=== PATIENT | male | born 1980 | race Hispanic/Latino ===

== ENCOUNTER 2016-12-30 11:51 | Emergency (ER) | payer BC, OTHER, SELFPAY ==
[2016-12-30 12:14] LABS: Bilirubin Negative (Negative); Blood, Urine Negative (Negative); Glucose, Urine (Dipstick) >=1000 mg/dL (Negative); Ketone, Urine Negative (Negative); Nitrite Negative (Negative); Protein, Urine (Dipstick) Negative (Neg-Trace)
[2016-12-30 12:25] LABS: #Basophils 0.1 thou/uL (0.0-0.2); #Eosinphils 0.1 thou/uL (0.0-0.7); #Lymphocytes 1.9 thou/uL (1.20-3.40); #Monocytes 0.4 thou/uL (0.11-0.59); #Neutrophils 3.9 thou/uL (1.40-6.50); %Basophils 1.1 % (0.0-1.0); %Eosinophils 1.1 % (0.0-10.0); %Lymphocytes 30.2 % (21.0-51.0); %Monocytes 6.5 % (0.0-10.0); Hematocrit 50.9 % (42.0-52.0); Mean Platelet Volume 6.9 fL (7.4-10.4); White Blood Cell (WBC) Count 6.4 thou/uL (4.8-10.8)
[2016-12-30 12:36] LABS: Anion Gap 11 mmol/L (-14-95); T. Carbon Dioxide 26.4 mmol/L (1.0-85.0); pH (Venous) 7.423 (7.35-7.45); vO2 Saturation-calc 96.5 % (0.0-100.0)
[2016-12-30 12:51] LABS: ALT (SGPT) 16 U/L (8-55); AST (SGOT) 16 U/L (5-34); Alkaline Phosphatase 112 U/L (40-150); Anion Gap 15 mmol/L (10-20); BUN (Urea Nitrogen) 12 mg/dL (8.9-20.6); Bilirubin, Total 0.7 mg/dL (0.2-1.2); Calc. Creatinine Clearance 0 mL/min (70-130); Calcium 10.3 mg/dL (7.8-10.44); Carbon Dioxide 25 mmol/L (22-29); Chloride 93 mmol/L (98-107); Estimated GFR-MDRD 87; Globulin 3.5 g/dL (2.4-3.5); Phosphorus 4.2 mg/dL (2.3-4.7); Protein, Total 7.9 g/dL (6.0-8.3)
[2016-12-30] MEDS ORDERED: Insulin NPH/Reg Insulin Hm 300 UNITS/3 ML VIAL SC SCH (15:30)
== END 2016-12-30 17:17 | disposition home or self-care (01) ==
LOC: ERS 11:51
DX: E11.65 Type 2 diabetes mellitus with hyperglycemia (principal); E86.0 Dehydration; I10 Essential (primary) hypertension; F32.9 Major depressive disorder, single episode, unspecified; F41.9 Anxiety disorder, unspecified; F17.210 Nicotine dependence, cigarettes, uncomplicated; Z79.4 Long term (current) use of insulin
CPT/HCPCS: 36416; 80053; 81003; 82010; 82330; 82803; 84100; 85025; 96360; 96361; 96372

== ENCOUNTER 2018-05-22 22:18 | Inpatient (IN) | payer SELFPAY ==
[2018-05-22] MEDS ORDERED: Lorazepam 2 MG/ML VIAL ONE (22:39)
--- NOTE | 2018-05-22 22:52 | RAD ---
FExam: Portable chest Provided clinical history: Vomiting FINDINGS: Comparison 08/21/2016. Cardiac and mediastinal silhouette is within normal limits. No focal consolidati on, pleural fluid or pneumothorax evident. IMPRESSION: No evidence for an acute cardiopulmonary process.
[2018-05-22 22:57] LABS: #Basophils 0.1 thou/uL (0.0-0.2); #Eosinphils 0.1 thou/uL (0.0-0.7); #Lymphocytes 2.3 thou/uL (1.20-3.40); #Monocytes 0.7 thou/uL (0.11-0.59); #Neutrophils 7.8 thou/uL (1.40-6.50); %Eosinophils 0.9 % (0.0-10.0); %Lymphocytes 21.2 % (21.0-51.0); %Monocytes 6.2 % (0.0-10.0); %Neutrophils 70.7 % (42.0-75.0); Hemoglobin 19.9 g/dL (14.0-18.0); Mean Corpuscular HGB CONC 34.5 g/dL (32.0-36.0); Mean Corpuscular Hemoglobin 30.1 pg (27.0-31.0); Mean Corpuscular Volume 87.1 fL (78.0-98.0); Platelet Count 313 thou/uL (130-400); RBC Distribution Width 12.4 % (11.5-14.5); Red Blood Cell (RBC) Count 6.62 mill/uL (4.70-6.10)
[2018-05-22] MEDS ORDERED: Ondansetron PF 4 MG/2 ML Vial ONE (22:58)
[2018-05-22 23:27] LABS: Base Excess-Venous -18.3 mmol/L (-2.0 to 3.0); Bicarbonate (HCO3v) 8.4 mmol/L (22.0-28.0); CO2 Tension (PvCO2) 24.1 mmHg (40.0-50.0); Calcium, Ionized 1.15 mmol/L (See Comments:); Chloride 108 mmol/L (98-107); Hemoglobin - Calc 20.5 g/dL (14.0-18.0); O2 Tension (PvO2) 56.3 mmHg (35.0-45.0); Potassium 5.4 mmol/L (3.5-5.1); Sodium 128 mmol/L (138-145); T. Carbon Dioxide 9.1 mmol/L (22.0-28.0); pH (Venous) 7.151 (7.320-7.430); vO2 Saturation-calc 80.6 % (60.0-85.0)
[2018-05-22 23:29] LABS: ALT (SGPT) 14 U/L (8-55); AST (SGOT) 10 U/L (5-34); Alkaline Phosphatase 83 U/L (40-150); BUN (Urea Nitrogen) 19 mg/dL (8.9-20.6); Bilirubin, Total 1.2 mg/dL (0.2-1.2); CK (CPK) 45 U/L (30-200); Calc. Creatinine Clearance 0 mL/min (70-130); Calcium 9.5 mg/dL (7.8-10.44); Chloride 101 mmol/L (98-107); Estimated GFR-MDRD 60; Globulin 3.8 g/dL (2.4-3.5); Glucose 340 mg/dL (70-105); Lipase 117 U/L (8-78); Potassium 4.4 mmol/L (3.5-5.1); Protein, Total 8.8 g/dL (6.0-8.3); Sodium 128 mmol/L (136-145)
[2018-05-22 23:30] LABS: Acetaminophen Less than 6.0 mcg/mL (10.0-30.0); Alcohol Less than 10 mg/dL (Less than 10); Salicylate Less than 8.0 mg/dL (15.0-30.0)
[2018-05-22 23:33] LABS: Carbon Dioxide Less than 8 mmol/L (22-29)
[2018-05-22] MEDS ORDERED: Insulin Regular 100 units/100 ml in NS IVPB SCH (23:45)
[2018-05-23 00:44] LABS: Bilirubin Small (Negative); Blood, Urine Negative (Negative); Clarity CLEAR (Clear); Glucose, Urine (Dipstick) >=1000 mg/dL (Negative); Leukocyte Negative (Negative); Nitrite Negative (Negative); Protein, Urine (Dipstick) 100 mg/dL (Neg-Trace); Specific Gravity, Urine 1.033 (1.002-1.036); Urobilinogen 0.2 mg/dL (0.2-1.0); pH, Urine 5.5 (5.0-9.0)
[2018-05-23 00:45] LABS: Bacteria/HPF None Seen HPF (None Seen); RBC/HPF 0-3 HPF (0-3); Squamous Epithelial 0-3 HPF (0-3); WBC/HPF 0-3 HPF (0-3)
[2018-05-23 00:46] LABS: Pathc Cast-AUWi Flag 2.71 (0-2.49)
[2018-05-23 00:53] LABS: Other Casts/LPF 0-3 FINELY GRAN LPF (0-3 Hyaline)
[2018-05-23 00:54] LABS: Amphetamine Detected (NotDetected); Barbiturates Screen Not Detected (NotDetected); Benzodiazepine Screen Not Detected (NotDetected); Cocaine Metabolite Screen Not Detected (NotDetected); Medtox Control Line Valid? VALID (VALID); Medtox Reader # READER 4; Methadone Not Detected (NotDetected); Methamphetamine Detected (NotDetected); Opiate Screen Not Detected (NotDetected); Oxycodone Screen Not Detected (NotDetected); Phencyclidine (PCP) Not Detected (NotDetected); THC/Cannabinoid Screen Not Detected (NotDetected); Tricyclic Screen Not Detected (NotDetected)
[2018-05-23] MEDS ORDERED: Ondansetron ODT 4 MG TAB PO PRN (01:05)
[2018-05-23] MEDS ORDERED: HUMULIN R 100 UNITS in Sodium Chloride 0.9% 100 ML IVPB SCH (01:05)
[2018-05-23] MEDS ORDERED: Dextrose 5 %-0.45 % NaCl 1,000 ML IV PRN (01:05)
[2018-05-23] MEDS ORDERED: CCU Electrolyte Replacement 1 EACH IVPB SCH (01:05)
[2018-05-23] MEDS ORDERED: D5 1/2 NS w/20 mEq KCL 1,000 ML IV PRN (01:05)
[2018-05-23] MEDS ORDERED: NS 0.9% w/ 20 MEQ KCL 1,000 ML IV PRN ×2 (01:05)
[2018-05-23] MEDS ORDERED: Ondansetron PF 4 MG/2 ML Vial IVP PRN (01:05)
[2018-05-23] MEDS ORDERED: hydrALAZINE 20 MG/ML VIAL SLOW IVP PRN (01:05)
[2018-05-23] MEDS ORDERED: Sodium Chloride 0.9% 1,000 ML IV PRN ×4 (01:05)
[2018-05-23] MEDS ORDERED: cloNIDine 0.1 MG TAB PO PRN (01:05)
[2018-05-23] MEDS ORDERED: Magnesium Oxide 400 MG TAB PO PRN ×2 (01:09)
[2018-05-23] MEDS ORDERED: Potassium Phosphate 9 MMOL in Sodium Chloride 0.9% 100 ML IVPB PRN (01:09)
[2018-05-23] MEDS ORDERED: Potassium Phosphate 15 MMOL in Sodium Chloride 0.9% 250 ML 250 ML IV PRN (01:09)
[2018-05-23] MEDS ORDERED: CCU ELECTROLYTE REPLACEMENT PROTOCOL FS PRN (01:09)
[2018-05-23] MEDS ORDERED: Magnesium 2 GM/50 ML 2 GM in Premix Bag 1 BAG IVPB PRN (01:09)
[2018-05-23] MEDS ORDERED: Potassium Chloride 20 MEQ TAB PO PRN (01:09)
[2018-05-23] MEDS ORDERED: Potassium Phosphate 12 MMOL in Sodium Chloride 0.9% 250 ML 250 ML IV PRN (01:09)
[2018-05-23] MEDS ORDERED: Potassium Chloride 40 MEQ in Premix Bag 1 BAG IVPB PRN (01:09)
[2018-05-23] MEDS ORDERED: Potassium Chloride 40 MEQ in Sodium Chloride 0.9% 250 ML 250 ML IVPB PRN (01:09)
[2018-05-23] MEDS ORDERED: Morphine 4 MG/ML VIAL SLOW IVP PRN (01:26)
[2018-05-23 01:47] VITALS: BMI 26.4
[2018-05-23 03:03] LABS: Anion Gap 22 mmol/L (10-20); BUN (Urea Nitrogen) 16 mg/dL (8.9-20.6); Calc. Creatinine Clearance 95 mL/min (70-130); Calcium 8.8 mg/dL (7.8-10.44); Chloride 105 mmol/L (98-107); Estimated GFR-MDRD 74; Glucose 264 mg/dL (70-105); Potassium 4.2 mmol/L (3.5-5.1); Sodium 132 mmol/L (136-145)
[2018-05-23 03:05] LABS: Carbon Dioxide 9 mmol/L (22-29)
[2018-05-23 04:54] LABS: Hemoglobin A1c 9.9 % (4.0-6.0)
[2018-05-23 05:51] LABS: Anion Gap 13 mmol/L (10-20); BUN (Urea Nitrogen) 14 mg/dL (8.9-20.6); Calc. Creatinine Clearance 121 mL/min (70-130); Calcium 8.3 mg/dL (7.8-10.44); Carbon Dioxide 11 mmol/L (22-29); Chloride 108 mmol/L (98-107); Estimated GFR-MDRD Greater than 90; Glucose 259 mg/dL (70-105); Potassium 3.4 mmol/L (3.5-5.1); Sodium 129 mmol/L (136-145)
[2018-05-23 06:03] LABS: Band 2 % (5-11); Hemoglobin 16.4 g/dL (14.0-18.0); Lymphocytes 25 % (21-51); MDiff Complete? YES; Mean Corpuscular HGB CONC 34.8 g/dL (32.0-36.0); Mean Corpuscular Hemoglobin 30.6 pg (27.0-31.0); Mean Corpuscular Volume 87.9 fL (78.0-98.0); Mean Platelet Volume 6.7 fL (7.4-10.4); Monocytes 10 % (0-10); Neutrophil 62 % (42-75); Platelet Count 261 thou/uL (130-400); RBC Distribution Width 11.9 % (11.5-14.5); Reactive Lymphocytes 1 % (0-10); Red Blood Cell (RBC) Count 5.34 mill/uL (4.70-6.10); White Blood Cell (WBC) Count 8.9 thou/uL (4.8-10.8)
--- NOTE | 2018-05-23 08:23 | HP ---
PRIMARY CARE PROVIDER: Anthony Orellana. CHIEF COMPLAINT: Vomiting. HISTORY OF PRESENT ILLNESS: This is a 37-year-old male, who presents to [facility] Emergency Department complaining of persistent nausea, vomiting, general weakness over the last 24 to 48 hours. The patient states he is a diabetic and has not taken his insulin over the last 2 weeks. The patient states he was recently released from senior care in March 2018, and has been unable to secure a primary care for followup. The patient admits to increased abdominal pain as well as frequency of urination. The patient denied any documented fever or chills or exposure history. The patient denied taking any home remedies for his nausea and vomiting. The patient's last oral intake was in the last 24 hours. The patient denied any specific change to his weight, however, denies being weighed recently. In the emergency room, the patient underwent general evaluation with screening metabolic survey, consistent with diabetic ketoacidosis presentation. The patient's initial pH noted at 7.1 with a carbon dioxide level less than 8. The patient received aggressive IV fluid hydration per DKA protocol as well as insulin infusion at 6 units/hour. The patient also received IV Zofran and Ativan. Initial workup in the emergency room also revealed urine drug screen positive for methamphetamines. PAST MEDICAL HISTORY: 1. Diabetes mellitus type 1, insulin requiring, poor compliance. 2. Hypertension. 3. Hepatitis C. 4. History of hepatic cirrhosis, status post interferon therapy. 5. Peripheral neuropathy. PAST SURGICAL HISTORY: 1. Status post right hand surgery. 2. Status post liver biopsy. 3. Status post cholecystectomy. 4. Status post hernia repair. 5. Status post granuloma removal. CURRENT MEDICATIONS: 1. Humulin R and N. 2. Aspirin 81 mg p.o. daily. 3. Carbamazepine 200 mg 1 tablet p.o. daily. 4. Duloxetine 60 mg p.o. daily. ALLERGIES: 1. ACETAMINOPHEN. 2. IODINE. 3. SHELLFISH. FAMILY HISTORY: Positive for diabetes mellitus and hypertension. SOCIAL HISTORY: The patient recently incarcerated, release from senior care in March 2018. Polysubstance abuse including marijuana and methamphetamines. Positive alcohol use weekly. Smokes up to a pack of cigarettes daily. REVIEW OF SYSTEMS: CONSTITUTIONAL: Negative for weight loss or gain, ability to conduct usual activities. SKIN: Negative for rash, itching. EYES: Negative for double vision, pain. ENT/MOUTH: Negative for nose bleeding, neck stiffness, pain, tenderness. CARDIOVASCULAR: Negative for palpitations, dyspnea on exertion, orthopnea. RESPIRATORY: Negative for shortness of breath, wheezing, cough, hemoptysis, fever or night sweats. GASTROINTESTINAL: Negative for poor appetite, abdominal pain, heartburn, constipation, or diarrhea. GENITOURINARY: Negative for urgency, frequency, dysuria, nocturia. MUSCULOSKELETAL: Negative for pain, swelling. NEUROLOGIC/PSYCHIATRIC: Negative for anxiety, depression. ALLERGY/IMMUNOLOGIC: Negative for skin rash, bleeding tendency. Otherwise, negative except as stated per HPI. PHYSICAL EXAMINATION: VITAL SIGNS: On admission, blood pressure 129/92, pulse 110, respiratory rate 28, temperature 97.6 degrees Fahrenheit, O2 saturation 99% on room air. GENERAL APPEARANCE: This is a 37-year-old male, ill appearing, responds to questions, in pysi-pm-huporijd distress. HEENT: Pupils are equal, round, reactive to light and accommodation. Extraocular muscles are intact. No scleral icterus. Mild bilateral conjunctival injection. Nares patent. OP is clear. Oral mucosa is dry. NECK: Supple. No cervical adenopathy. No thyromegaly. No carotid bruits. No JVD appreciated. Cervical spine with full active and passive range of motion. No meningeal signs noted. CHEST: Lungs are clear to auscultation bilaterally. CARDIOVASCULAR: S1 and S2 with tachycardia. ABDOMEN: Rounded with mild tenderness to palpation. No palpable mass. No rebound or guarding noted. Bowel sounds are positive in all 4 quadrants. EXTREMITIES: Warm and dry with poor skin turgor. Capillary refill less than 2 seconds. Pulses palpable distally at the dorsalis pedis and posterior tibial arteries bilaterally. NEUROLOGIC: Cranial nerves 2 through 12 are grossly intact. No focal or lateralizing signs appreciated. PERTINENT LABORATORY AND X-RAY FINDINGS: Sodium 128, potassium 4.4, chloride 101, CO2 less than 8, BUN 19, creatinine 1.34, estimated GFR 60, glucose 340, calcium 9.5, lactic acid level 1.2. LFTs within normal limits. Troponin I negative x1. BNP less than 10. Albumin 5.0. TSH 1.51. Lipase 117. CBC showed a white blood cell count of 11, hemoglobin 20, hematocrit 58, platelet count 313, with normal differential. Venous blood gas dated 05/22/2018 showed a pH of 7.16, pCO2 24, PO2 56, bicarb 8.4. Urinalysis positive for protein, glucose, and ketones. Urine drug screen dated 05/23/2018, positive for methamphetamines and amphetamines. Plasma alcohol level less than 10. Influenza A and B antigen dated 05/22/2018, negative. Portable chest x-ray dated 05/22/2018 by my interpretation showed no acute cardiopulmonary process. EKG dated 05/22/2018 by my interpretation shows sinus tachycardia with heart rates in the 110s. Normal R-wave progression noted in the precordial leads. Left axis deviation noted. Baseline artifact noted. ASSESSMENT AND PLAN: 1. Diabetic ketoacidosis. The patient will be admitted to the intermediate care unit. We will continue DKA protocol with aggressive IV fluid hydration. Continue insulin infusion at 6 units/hour, titrating to glycemic response. No current evidence to suggest acute focal infectious process as underlying etiology. Presentation likely due to noncompliance and polysubstance abuse and substance abuse. Check A1c level in the a.m. Repeat beta hydroxybutyrate level in the a.m. 2. Acute kidney injury, secondarily to #1 with dehydration. We will continue volume replacement as outlined previously. Avoid nephrotoxic agents and limit contrast exposure. Repeat creatinine in the a.m. 3. Nausea and vomiting, secondarily to #1. We will continue Zofran 4 mg IV q.6 hours. Clear liquids as tolerated. Suspect clinical improvement with resolution of #1. 4. Methamphetamine abuse. We will offer resources for cessation. Consult Case Management for any further recommendations. Consider [facility] evaluation. 5. Diabetes mellitus type 1. Resume insulin regimen after confirmation from home dose. Check A1c level in the a.m. Medical noncompliance. 6. Prophylaxis. SCDs while in bed. Pepcid 20 mg IV q.12 hours. 7. Code status, full. Surrogate medical decision maker is patient's spouse. Job ID: [id number]
[2018-05-23] MEDS ORDERED: CARBAMAZEPINE 200 MG PO SCH (09:00)
[2018-05-23] MEDS ORDERED: carBAMazepine 200 MG TAB PO SCH (09:00)
[2018-05-23] MEDS ORDERED: DULoxetine 60 MG CAP PO SCH (09:00)
[2018-05-23] MEDS ORDERED: Aspirin 81 mg Enteric Coated Tablet PO SCH (09:00)
[2018-05-23] MEDS: Famotidine/PF 20 mg/2ml Vial SLOW IVP SCH ×2 (09:10→20:24)
[2018-05-23] MEDS: Gabapentin 300 MG CAP PO SCH ×2 (09:10→20:25)
[2018-05-23 09:17] LABS: Anion Gap 11 mmol/L (10-20); BUN (Urea Nitrogen) 14 mg/dL (8.9-20.6); Calc. Creatinine Clearance 121 mL/min (70-130); Calcium 8.5 mg/dL (7.8-10.44); Carbon Dioxide 15 mmol/L (22-29); Chloride 109 mmol/L (98-107); Estimated GFR-MDRD Greater than 90; Glucose 221 mg/dL (70-105); Potassium 3.5 mmol/L (3.5-5.1); Sodium 131 mmol/L (136-145)
[2018-05-23] MEDS ORDERED: NPH, Human Insulin Isophane 300 UNIT/3 ML VIAL SC SCH (15:45)
[2018-05-23] MEDS ORDERED: traMADol HCl 50 MG TAB PO PRN (15:46)
[2018-05-23] MEDS ORDERED: Dextrose 50% Abboject 50 ML SYRINGE IVP PRN (15:55)
[2018-05-23] MEDS ORDERED: Dextrose 5% in Water 1,000 ML IV PRN (15:55)
[2018-05-23] MEDS: traMADol HCl 50 MG TAB PO PRN ×2 (16:21→22:27)
[2018-05-23] MEDS: HumaLOG 300 UNITS/3 ML VIAL SC PRN ×2 (20:25→22:32)
[2018-05-24 05:13] LABS: Anion Gap 10 mmol/L (10-20); BUN (Urea Nitrogen) 8 mg/dL (8.9-20.6); Calc. Creatinine Clearance 175 mL/min (70-130); Calcium 8.3 mg/dL (7.8-10.44); Carbon Dioxide 22 mmol/L (22-29); Chloride 105 mmol/L (98-107); Estimated GFR-MDRD Greater than 90; Glucose 229 mg/dL (70-105); Potassium 3.2 mmol/L (3.5-5.1); Sodium 134 mmol/L (136-145)
[2018-05-24] MEDS: HumaLOG 300 UNITS/3 ML VIAL SC PRN ×4 (05:58→20:29)
[2018-05-24] MEDS: traMADol HCl 50 MG TAB PO PRN ×2 (09:13→20:28)
[2018-05-24] MEDS: Gabapentin 300 MG CAP PO SCH ×2 (09:13→20:25)
[2018-05-24] MEDS: Famotidine/PF 20 mg/2ml Vial SLOW IVP SCH (09:13)
--- NOTE | 2018-05-24 16:53 | PDOC.PN ---
- Subjective Encounter Start Date: 05/24/18 Encounter Start Time: 16:20 Follow up DKA. Off insulin drip. Hungry. Asking for multiple meals. c/o blurry vision, feels tired, feels worn out. At home previously 70/30 35 units morning and 30units evening. - Objective Resuscitation Status - Order Detail: 05/23/18 00:56 Resuscitation Status Routine Resuscitation Status: FULL: Full Resuscitation Vital Signs & Weight: Vital Signs (12 hours) Temp Pulse Ox 05/24/18 07:35 98 05/24/18 07:00 98.3 F Weight Weight 163 lb 6.4 oz Most Recent Monitor Data Heart Rate from ECG 71 NIBP 117/75 NIBP BP-Mean 89 Respiration from ECG 14 SpO2 99 I&O: 05/23/18 05/24/18 05/25/18 06:59 06:59 06:59 Intake Total 1795 6766 Output Total 951 Balance 1795 5815 Result Diagrams: 05/23/18 04:05 05/24/18 04:08 Additional Labs: Accuchecks 05/24/18 05/24/18 05/24/18 16:29 11:47 05:59 POC Glucose 249 H 289 H 231 H 05/23/18 05/23/18 22:31 20:13 POC Glucose 393 H 440 H Phys Exam - Physical Examination Constitutional: NAD HEENT: PERRLA Neck: supple, full ROM Respiratory: clear to auscultation bilateral Cardiovascular: RRR Gastrointestinal: soft, non-tender Musculoskeletal: no edema Neurological: non-focal, moves all 4 limbs Psychiatric: A&O x 3 Skin: no rash, normal turgor Dx/Plan (1) Hypokalemia with shifts of fluid from extracellular to intracellular space Code(s): E87.6 - HYPOKALEMIA Status: Acute Comment: Replete, check AM BMP and Mg (2) Polysubstance abuse Code(s): F19.10 - OTHER PSYCHOACTIVE SUBSTANCE ABUSE, UNCOMPLICATED Status: Chronic (3) Uncontrolled type 2 diabetes mellitus with peripheral neuropathy Code(s): E11.42 - TYPE 2 DIABETES MELLITUS WITH DIABETIC POLYNEUROPATHY; E11.65 - TYPE 2 DIABETES MELLITUS WITH HYPERGLYCEMIA Status: Chronic Comment: Start Humulin 70/30 35 u subqu bid (4) DKA (diabetic ketoacidosis) Code(s): E13.10 - OTH DIABETES MELLITUS WITH KETOACIDOSIS WITHOUT COMA Status : Resolved - Plan cont current plan of care, out of bed/ambulate * * Replete electrolytes. Discussed with him visual disturbance likely consequence polysubstance abuse and fluctuating blood sugar. Neuro exam is reassuring. * Transfer to medical. * Likely home 4/4: morning lab ordered. Paper prescriptions completed for insulin (Novolog SS, Novolin 70/30) and given to community mental health social worker to send to agency consulted for med assistance.
[2018-05-24] MEDS ORDERED: Potassium Chloride 20 MEQ TAB PO SCH (17:15)
[2018-05-25] MEDS: HumaLOG 300 UNITS/3 ML VIAL SC PRN (05:35)
[2018-05-25 07:22] LABS: Albumin 3.7 g/dL (3.5-5.0); Anion Gap 13 mmol/L (10-20); BUN (Urea Nitrogen) 9 mg/dL (8.9-20.6); BUN/Creatinine Ratio 13.85; Calc. Creatinine Clearance 162 mL/min (70-130); Calcium 8.9 mg/dL (7.8-10.44); Carbon Dioxide 24 mmol/L (22-29); Chloride 100 mmol/L (98-107); Estimated GFR-MDRD Greater than 90; Glucose 328 mg/dL (70-105); Magnesium 1.9 mg/dL (1.6-2.6); Phosphorus 2.6 mg/dL (2.3-4.7); Potassium 3.2 mmol/L (3.5-5.1); Sodium 134 mmol/L (136-145)
[2018-05-25] MEDS ORDERED: NPH, Human Insulin Isophane 300 UNIT/3 ML VIAL SC SCH (07:30)
[2018-05-25] MEDS: traMADol HCl 50 MG TAB PO PRN (08:04)
[2018-05-25] MEDS: Gabapentin 300 MG CAP PO SCH (08:06)
[2018-05-25] MEDS ORDERED: Potassium Chloride 20 MEQ TAB PO SCH ×2 (08:30→17:00)
[2018-05-25 08:35] VITALS: BP 126/73; TEMP 98.2
--- NOTE | 2018-05-26 08:31 | DIS ---
DATE OF ADMISSION: 05/22/2018 DATE OF DISCHARGE: 05/25/2018 DISCHARGE DISPOSITION: Home. FOLLOWUP: Follow up with primary care physician at [facility] in 1 week. DISCHARGE MEDICATIONS: 1. Novolin 70/30, 30 units at night and 35 units in the morning. 2. Humalog sliding scale. 3. Neurontin 300 mg three times daily. 4. Tramadol as needed. INPATIENT CONSULTANTS: None. BRIEF HOSPITAL COURSE: The patient is a 37-year-old male with diabetes mellitus type 1, not compliant with insulin, presented to the hospital on May 22, 2018, with nausea and vomiting. Please refer to the history and physical by Dr. Von Wheat for further details. The patient was admitted to the hospital with a diagnosis of diabetic ketoacidosis. His venous ABG showed pH of 7.15 with pCO2 of 24, pO2 of 56.3 with bicarbonate of 8.3. He was monitored in the intermediate care unit, on insulin drip. He also had several electrolyte abnormalities, which were gradually replaced. Later on, he was transferred to the medical floor. He was advised to be compliant with his insulin. FINAL DIAGNOSES: 1. Diabetic ketoacidosis secondary to noncompliance. 2. History of diabetes mellitus, type 1. 3. Acute kidney injury, resolved. 4. Hyponatremia. 5. Hypokalemia. 6. Anion gap metabolic acidosis secondary to diabetic ketoacidosis. Ketones on admission was 7.7, repeat was 1.75. 7. Neuropathy, suspected to be secondary to diabetes mellitus. The patient will benefit from Neurology evaluation as an outpatient. 8. Hyperkalemia on admission, resolved. PLAN: Plan of care was discussed with the patient in detail. He stated understanding. Job ID: [id number]
== END 2018-05-25 14:52 | disposition home or self-care (01) | DRG 638 ==
LOC: ERS 22:18 → IMCU/EMU 23:36 → T4-B 05-24 19:09
PROVIDERS: ADMIT Family Medicine; ATTEND Family Medicine
DX: E10.10 Type 1 diabetes mellitus with ketoacidosis without coma (principal); N17.9 Acute kidney failure, unspecified; E86.0 Dehydration; F15.10 Other stimulant abuse, uncomplicated; I10 Essential (primary) hypertension; E10.42 Type 1 diabetes mellitus with diabetic polyneuropathy; F32.9 Major depressive disorder, single episode, unspecified; F41.9 Anxiety disorder, unspecified; E87.6 Hypokalemia; F19.10 Other psychoactive substance abuse, uncomplicated; F17.210 Nicotine dependence, cigarettes, uncomplicated; Z91.14 Patient's other noncompliance with medication regimen; Z90.49 Acquired absence of other specified parts of digestive tract; Z98.890 Other specified postprocedural states; Z79.4 Long term (current) use of insulin; Z79.82 Long term (current) use of aspirin; Z91.041 Radiographic dye allergy status; Z88.8 Allergy status to other drugs, medicaments and biological substances; Z91.013 Allergy to seafood
CPT/HCPCS: 36415; 36416; 71045; 80048; 80053; 80069; 80306; 80307; 81003; 81015; 82010; 82140; 82330; 82550; 82803; 83036; 83605; 83690; 83735; 83880; 84443; 84484; 85007; 85025; 85027; 87040; 87086; 87804; 93005; 96361; 96365; 96375; J1815; J2060; J2405; J7050; S0028

== ENCOUNTER 2018-07-13 17:00 | Emergency (ER) | payer SELFPAY ==
[2018-07-13 17:32] LABS: #Eosinphils 0.1 thou/uL (0.0-0.7); #Lymphocytes 1.3 thou/uL (1.20-3.40); #Monocytes 0.6 thou/uL (0.11-0.59); %Eosinophils 1.2 % (0.0-10.0); %Lymphocytes 26.3 % (21.0-51.0); %Monocytes 11.1 % (0.0-10.0); %Neutrophils 60.5 % (42.0-75.0); Hemoglobin 16.1 g/dL (14.0-18.0); Mean Corpuscular Hemoglobin 31.8 pg (27.0-31.0); Mean Corpuscular Volume 88.4 fL (78.0-98.0); Mean Platelet Volume 6.6 fL (7.4-10.4); Platelet Count 222 thou/uL (130-400); RBC Distribution Width 12.4 % (11.5-14.5); Red Blood Cell (RBC) Count 5.06 mill/uL (4.70-6.10)
[2018-07-13 17:55] LABS: ALT (SGPT) 14 U/L (8-55); AST (SGOT) 11 U/L (5-34); Albumin 4.1 g/dL (3.5-5.0); Alkaline Phosphatase 107 U/L (40-150); Anion Gap 13 mmol/L (10-20); BUN (Urea Nitrogen) 9 mg/dL (8.9-20.6); Bilirubin, Total 1.1 mg/dL (0.2-1.2); Calc. Creatinine Clearance 0 mL/min (70-130); Calcium 9.6 mg/dL (7.8-10.44); Carbon Dioxide 27 mmol/L (22-29); Chloride 94 mmol/L (98-107); Estimated GFR-MDRD 82; Globulin 2.8 g/dL (2.4-3.5); Potassium 3.8 mmol/L (3.5-5.1); Protein, Total 6.9 g/dL (6.0-8.3); Sodium 130 mmol/L (136-145)
[2018-07-13 17:57] LABS: Glucose 655 mg/dL (70-105)
--- NOTE | 2018-07-13 18:34 | ULT ---
Testicular pain. Multiple longitudinal and transverse images of the scrotum was obtained using multi hertz linear arra y transducer. Real-time, color flow and spectral waveform Doppler analysis demonstrates the right testicle to measure 3.0 x 3.5 x 2.2 cm while the left measures 2.8 x 4.0 x 1.9 cm. No definite eviden ce of testicular parenchymal masses seen. Good blood flow seen in both testicles. Right and left epididymides are unremarkable. Some right inguinal prominent vessels seen possibly representing varicoceles. IMPRESSION: No evidence of testicular masses or definite evidence of testicular torsion.
[2018-07-13 19:28] LABS: Bilirubin Negative (Negative); Blood, Urine Negative (Negative); Clarity CLEAR (Clear); Glucose, Urine (Dipstick) >=1000 mg/dL (Negative); Leukocyte Negative (Negative); Nitrite Negative (Negative); Protein, Urine (Dipstick) Negative (Neg-Trace); Specific Gravity, Urine 1.042 (1.002-1.036)
== END 2018-07-13 22:02 | disposition home or self-care (01) ==
LOC: ERS 17:00
DX: E10.65 Type 1 diabetes mellitus with hyperglycemia (principal); B37.42 Candidal balanitis; I10 Essential (primary) hypertension; F41.9 Anxiety disorder, unspecified; F32.9 Major depressive disorder, single episode, unspecified; F17.210 Nicotine dependence, cigarettes, uncomplicated; Z79.82 Long term (current) use of aspirin; Z79.899 Other long term (current) drug therapy
CPT/HCPCS: 36415; 76870; 80053; 81003; 85025; 87086; 93976

== ENCOUNTER 2018-07-17 17:07 | Emergency (ER) | payer SELFPAY ==
[2018-07-17 17:59] LABS: #Eosinphils 0.1 thou/uL (0.0-0.7); #Lymphocytes 1.9 thou/uL (1.20-3.40); #Monocytes 0.6 thou/uL (0.11-0.59); #Neutrophils 4.6 thou/uL (1.40-6.50); %Basophils 0.5 % (0.0-1.0); %Eosinophils 0.9 % (0.0-10.0); %Lymphocytes 26.6 % (21.0-51.0); %Monocytes 8.3 % (0.0-10.0); %Neutrophils 63.8 % (42.0-75.0); Hemoglobin 16.4 g/dL (14.0-18.0); Mean Corpuscular HGB CONC 34.8 g/dL (32.0-36.0); Mean Corpuscular Hemoglobin 30.8 pg (27.0-31.0); Mean Corpuscular Volume 88.4 fL (78.0-98.0); Mean Platelet Volume 6.9 fL (7.4-10.4); Platelet Count 267 thou/uL (130-400); Red Blood Cell (RBC) Count 5.32 mill/uL (4.70-6.10); White Blood Cell (WBC) Count 7.1 thou/uL (4.8-10.8)
[2018-07-17 18:16] LABS: ALT (SGPT) 13 U/L (8-55); AST (SGOT) 11 U/L (5-34); Albumin 4.3 g/dL (3.5-5.0); Alkaline Phosphatase 145 U/L (40-150); Anion Gap 15 mmol/L (10-20); BUN (Urea Nitrogen) 10 mg/dL (8.9-20.6); Bilirubin, Total 1.3 mg/dL (0.2-1.2); Calc. Creatinine Clearance 0 mL/min (70-130); Carbon Dioxide 26 mmol/L (22-29); Chloride 89 mmol/L (98-107); Estimated GFR-MDRD 72; Globulin 3.3 g/dL (2.4-3.5); Potassium 4.1 mmol/L (3.5-5.1); Protein, Total 7.6 g/dL (6.0-8.3); Sodium 126 mmol/L (136-145)
[2018-07-17 18:18] LABS: Glucose 752 mg/dL (70-105)
[2018-07-17] MEDS ORDERED: Lidocaine 1% w/Epinephrine 1:100K 20 ML VIAL ONE (18:22)
[2018-07-17] MEDS ORDERED: Lidocaine 1% PF 5 ML VIAL ONE (18:22)
== END 2018-07-17 19:16 | disposition home or self-care (01) ==
LOC: ERS 17:07
DX: Z48.817 Encounter for surgical aftercare following surgery on the skin and subcutaneous tissue (principal); E10.65 Type 1 diabetes mellitus with hyperglycemia; E10.40 Type 1 diabetes mellitus with diabetic neuropathy, unspecified; F41.9 Anxiety disorder, unspecified; F32.9 Major depressive disorder, single episode, unspecified; F17.210 Nicotine dependence, cigarettes, uncomplicated; I10 Essential (primary) hypertension
CPT/HCPCS: 10060; 36415; 36416; 80053; 82010; 85025; J2001

== ENCOUNTER 2018-07-19 10:29 | Emergency (ER) | payer SELFPAY ==
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
[2018-07-19 11:40] LABS: #Eosinphils 0.1 thou/uL (0.0-0.7); #Lymphocytes 1.3 thou/uL (1.20-3.40); #Monocytes 0.6 thou/uL (0.11-0.59); #Neutrophils 5.5 thou/uL (1.40-6.50); %Basophils 0.6 % (0.0-1.0); %Eosinophils 1.2 % (0.0-10.0); %Lymphocytes 16.9 % (21.0-51.0); %Neutrophils 73.3 % (42.0-75.0); Mean Corpuscular HGB CONC 36.1 g/dL (32.0-36.0); Mean Corpuscular Hemoglobin 31.5 pg (27.0-31.0); Mean Corpuscular Volume 87.2 fL (78.0-98.0); Mean Platelet Volume 7.4 fL (7.4-10.4); Platelet Count 222 thou/uL (130-400); Red Blood Cell (RBC) Count 4.76 mill/uL (4.70-6.10); White Blood Cell (WBC) Count 7.4 thou/uL (4.8-10.8)
[2018-07-19 11:43] LABS: ALT (SGPT) 15 U/L (8-55); AST (SGOT) 14 U/L (5-34); Albumin 4.2 g/dL (3.5-5.0); Alkaline Phosphatase 130 U/L (40-150); Anion Gap 13 mmol/L (10-20); BUN (Urea Nitrogen) 8 mg/dL (8.9-20.6); Calc. Creatinine Clearance 0 mL/min (70-130); Calcium 9.9 mg/dL (7.8-10.44); Carbon Dioxide 26 mmol/L (22-29); Chloride 95 mmol/L (98-107); Estimated GFR-MDRD Greater than 90; Globulin 3.1 g/dL (2.4-3.5); Glucose 516 mg/dL (70-105); Potassium 3.9 mmol/L (3.5-5.1); Protein, Total 7.3 g/dL (6.0-8.3); Sodium 130 mmol/L (136-145)
[2018-07-19] MEDS ORDERED: Insulin Regular 300 UNITS/3 ML VIAL ONE (12:04)
[2018-07-19] MEDS ORDERED: Ketorolac Tromethamine 30 MG/ML VIAL ONE (12:04)
== END 2018-07-19 14:18 | disposition home or self-care (01) ==
LOC: ERS 10:29
DX: S00.83XA Contusion of other part of head, initial encounter (principal); S00.212A Abrasion of left eyelid and periocular area, initial encounter; L02.11 Cutaneous abscess of neck; E10.40 Type 1 diabetes mellitus with diabetic neuropathy, unspecified; I10 Essential (primary) hypertension; F41.9 Anxiety disorder, unspecified; F32.9 Major depressive disorder, single episode, unspecified; F17.210 Nicotine dependence, cigarettes, uncomplicated; Z79.899 Other long term (current) drug therapy; V23.4XXA Motorcycle driver injured in collision with car, pick-up truck or van in traffic accident, initial encounter
CPT/HCPCS: 36416; 70450; 71046; 80053; 85025; 93005; 96361; 96374; 96375; J1815; J1885

== ENCOUNTER 2018-09-03 19:54 | Emergency (ER) | payer SELFPAY ==
[2018-09-03 20:21] LABS: Bilirubin Negative (Negative); Blood, Urine Negative (Negative); Clarity Clear (Clear); Glucose, Urine (Dipstick) Greater than 1000 mg/dL (Negative); Leukocyte Negative Leu/uL (Negative); Nitrite Negative (Negative); Protein, Urine (Dipstick) Negative (Neg-Trace); Urobilinogen Normal mg/dL (Less than 2)
[2018-09-03 20:25] LABS: #Lymphocytes 1.1 thou/uL (1.20-3.40); #Monocytes 0.4 thou/uL (0.11-0.59); #Neutrophils 3.9 thou/uL (1.40-6.50); %Basophils 0.8 % (0.0-1.0); %Eosinophils 0.8 % (0.0-10.0); %Lymphocytes 19.6 % (21.0-51.0); %Monocytes 7.4 % (0.0-10.0); %Neutrophils 71.5 % (42.0-75.0); Hemoglobin 14.1 g/dL (14.0-18.0); Mean Corpuscular HGB CONC 33.7 g/dL (32.0-36.0); Mean Corpuscular Hemoglobin 29.7 pg (27.0-31.0); Mean Platelet Volume 6.6 fL (7.4-10.4); Platelet Count 254 thou/uL (130-400); RBC Distribution Width 11.8 % (11.5-14.5); Red Blood Cell (RBC) Count 4.74 mill/uL (4.70-6.10); White Blood Cell (WBC) Count 5.5 thou/uL (4.8-10.8)
[2018-09-03 20:45] LABS: ALT (SGPT) 16 U/L (8-55); AST (SGOT) 14 U/L (5-34); Albumin 3.7 g/dL (3.5-5.0); Alkaline Phosphatase 130 U/L (40-150); Anion Gap 13 mmol/L (10-20); BUN (Urea Nitrogen) 9 mg/dL (8.9-20.6); Bilirubin, Total 0.9 mg/dL (0.2-1.2); Calc. Creatinine Clearance 0 mL/min (70-130); Calcium 9.1 mg/dL (7.8-10.44); Carbon Dioxide 26 mmol/L (22-29); Chloride 90 mmol/L (98-107); Estimated GFR-MDRD 81; Globulin 3.5 g/dL (2.4-3.5); Potassium 3.9 mmol/L (3.5-5.1); Protein, Total 7.2 g/dL (6.0-8.3); Sodium 125 mmol/L (136-145)
[2018-09-03 20:49] LABS: Glucose 778 mg/dL (70-105)
[2018-09-03] MEDS ORDERED: Insulin Regular 300 UNITS/3 ML VIAL ONE (21:06)
[2018-09-03] MEDS ORDERED: Magnesium Citrate 300 ML BOT ONE (23:52)
[2018-09-04 00:33] LABS: ALT (SGPT) 15 U/L (8-55); AST (SGOT) 13 U/L (5-34); Albumin 3.5 g/dL (3.5-5.0); Alkaline Phosphatase 119 U/L (40-150); Anion Gap 11 mmol/L (10-20); BUN (Urea Nitrogen) 7 mg/dL (8.9-20.6); Bilirubin, Total 0.7 mg/dL (0.2-1.2); Calc. Creatinine Clearance 0 mL/min (70-130); Calcium 8.7 mg/dL (7.8-10.44); Carbon Dioxide 26 mmol/L (22-29); Chloride 99 mmol/L (98-107); Estimated GFR-MDRD Greater than 90; Globulin 3.4 g/dL (2.4-3.5); Glucose 344 mg/dL (70-105); Potassium 3.7 mmol/L (3.5-5.1); Protein, Total 6.9 g/dL (6.0-8.3); Sodium 132 mmol/L (136-145)
== END 2018-09-04 00:15 | disposition home or self-care (01) ==
LOC: ERS 19:54
DX: K59.00 Constipation, unspecified (principal); E10.65 Type 1 diabetes mellitus with hyperglycemia; F15.10 Other stimulant abuse, uncomplicated; R07.9 Chest pain, unspecified; E10.40 Type 1 diabetes mellitus with diabetic neuropathy, unspecified; F17.210 Nicotine dependence, cigarettes, uncomplicated; F41.9 Anxiety disorder, unspecified; F32.9 Major depressive disorder, single episode, unspecified; Z79.899 Other long term (current) drug therapy
CPT/HCPCS: 36415; 36416; 80053; 81003; 82010; 85025; 96361; 96374; J1815

== ENCOUNTER 2018-11-02 22:32 | Inpatient (IN) | payer SELFPAY ==
--- NOTE | 2018-11-02 23:34 | RAD ---
RADIOGRAPH CHEST 2 VIEWS: DATE: 11/02/2018 HISTORY: 38-year-old male with chest infection FINDINGS: There is no airspace density, pulmonary edema, pleural effusion, pneumothorax, or cardiomegaly. IMPRESSION: No acute cardiopulmonary findings.
[2018-11-02 23:56] LABS: #Lymphocytes 1.9 thou/uL (1.20-3.40); #Monocytes 0.6 thou/uL (0.11-0.59); #Neutrophils 5.7 thou/uL (1.40-6.50); %Basophils 0.4 % (0.0-1.0); %Eosinophils 0.6 % (0.0-10.0); %Lymphocytes 22.8 % (21.0-51.0); %Monocytes 7.6 % (0.0-10.0); %Neutrophils 68.6 % (42.0-75.0); Hemoglobin 14.2 g/dL (14.0-18.0); Mean Corpuscular HGB CONC 35.2 g/dL (32.0-36.0); Mean Corpuscular Hemoglobin 30.3 pg (27.0-31.0); Mean Corpuscular Volume 86.2 fL (78.0-98.0); Mean Platelet Volume 6.1 fL (7.4-10.4); Platelet Count 289 thou/uL (130-400); RBC Distribution Width 12.2 % (11.5-14.5); Red Blood Cell (RBC) Count 4.69 mill/uL (4.70-6.10); White Blood Cell (WBC) Count 8.3 thou/uL (4.8-10.8)
[2018-11-03 00:14] LABS: ALT (SGPT) 15 U/L (8-55); AST (SGOT) 14 U/L (5-34); Albumin 3.6 g/dL (3.5-5.0); Alkaline Phosphatase 191 U/L (40-150); Anion Gap 11 mmol/L (10-20); BUN (Urea Nitrogen) 10 mg/dL (8.9-20.6); Bilirubin, Total 0.6 mg/dL (0.2-1.2); Calc. Creatinine Clearance 0 mL/min (70-130); Calcium 9.2 mg/dL (7.8-10.44); Carbon Dioxide 26 mmol/L (22-29); Chloride 90 mmol/L (98-107); Estimated GFR-MDRD 77; Globulin 5.2 g/dL (2.4-3.5); Potassium 3.8 mmol/L (3.5-5.1); Protein, Total 8.8 g/dL (6.0-8.3); Sodium 123 mmol/L (136-145)
[2018-11-03 00:22] LABS: Glucose 638 mg/dL (70-105)
[2018-11-03 00:26] LABS: Bilirubin Negative (Negative); Blood, Urine Negative (Negative); Clarity Clear (Clear); Glucose, Urine (Dipstick) Greater than 1000 mg/dL (Negative); Leukocyte Negative Leu/uL (Negative); Nitrite Negative (Negative); Protein, Urine (Dipstick) Negative (Neg-Trace); Urobilinogen Normal mg/dL (Less than 2)
[2018-11-03] MEDS ORDERED: Insulin Regular 300 UNITS/3 ML VIAL ONE ×2 (00:33→00:34)
[2018-11-03 00:35] LABS: Medtox Reader # READER 4
[2018-11-03 00:36] LABS: Amphetamine Detected (NotDetected); Barbiturates Screen Not Detected (NotDetected); Benzodiazepine Screen Not Detected (NotDetected); Cocaine Metabolite Screen Not Detected (NotDetected); Medtox Control Line Valid? VALID (VALID); Methadone Not Detected (NotDetected); Methamphetamine Detected (NotDetected); Opiate Screen Not Detected (NotDetected); Oxycodone Screen Not Detected (NotDetected); Phencyclidine (PCP) Not Detected (NotDetected); THC/Cannabinoid Screen Not Detected (NotDetected); Tricyclic Screen Not Detected (NotDetected)
--- NOTE | 2018-11-03 02:15 | PDOC.FPRHP ---
- History of Present Illness Chief Complaint: abscesses History of Present Illness: 38 yo male with type 1 or 2 diabetes, neuropathy and leg cramps, presents with several abscesses, one is on his neck, one in L armpit, several are on his penis. Two weeks ago on arm, two days on head, and penis lesion for two months. Was told by Bart Ventura he had chlamydia, treated at that time. Currently uses meth, injects using his insulin needles. Reports he was in retirement for 5 months and was released in March. Has tattoos some of which were done in retirement. Reports he hasn't been on insulin for 3 months because he doesn't care anymore and has been on meth; last hgba1c 12.6. Regarding penile lesions, reports he was supposed to have procedure because he cannot retract his foreskin but was not able to schedule it. ED Course: Given 2 L fluids, 10 U insulin IV in the ED. - Allergies/Adverse Reactions Allergies Allergy/AdvReac Type Severity Reaction Status Date / Time codeine Allergy Intermediate Verified 11/03/18 04:35 [From Tylenol-Codeine #3] acetaminophen Allergy Verified 11/03/18 04:35 Iodinated Contrast Media Allergy Verified 11/03/18 04:35 [Iodinated Contrast Media - Oral and] shellfish derived Allergy Verified 11/03/18 04:35 - Home Medications Medication Instructions Recorded Confirmed Type No Known 11/03/18 11/03/18 History - History PMHx: Hepatitis C 2011 s/p treatment, Seizures from diabetes while in retirement?, Type 1 or 2 diabetes, Cirrhosis, Anxiety, Depression, HTN, Hypothyroidism? PSHx: granuloma removal, hernia repair, abscess s/p I&D, cholecystectomy, liver biopsy FHx: grandparents-diabetes, cirrhosis, heart attacks, mom-diabetes, daughter- diabetes Social: meth use/abuse last use 1700 yesterday, used "every drug", marijuana use , hx of drinking - Review of Systems General: reports: night sweats, fatigue. denies: fever/chills, weight/appetite/ sleep changes ENT: denies: nasal congestion, rhinorrhea Respiratory: denies: cough, congestion, shortness of breath Cardiovascular: denies: chest pain, palpitation Gastrointestinal: reports: nausea, vomiting, constipation. denies: diarrhea Genitourinary: reports: polyuria Skin: reports: lesions (multiple lesions) Musculoskeletal: reports: tenderness, other (leg cramps and pain) Psychological: reports: anxiety, depression, other (seeing someone under blankets for years,) - Vital signs BP: 121/83 HR: 99 RR: 18 Tmax: 98.1 Pox: 99% on RA Wt: 57 kg - Physical Exam Constitutional: NAD, awake, alert and oriented HEENT: normocephalic and atraumatic Neck: trachea midline, other (mild thyromegaly, L cervical anterior LAD) Heart: normal S1/S2 (3/6 holosystolic murmur), pulses present, no edema Lungs: CTAB, no respiratory distress, good air movement Abdomen: soft, non-tender, bowel sounds present, no masses/distention Neurological: no focal deficit -Skin: Large 3 cm abscess over posterior neck, 4 cm abscess in left armpit, multiple b/ l arm LAD, Penis abscess and erythematous balinitis, multiple tattoos over body some appearing older than others. Psychiatric: normal mood and affect (pt obviously distressed at his auditory and visual hallucinations, expressed desire to stop using meth, would like to see psychiatrist, he does not express SI. Speech: normal.), intact recent and remote memory FMR H&P: Results - Labs Result Diagrams: 11/03/18 05:00 11/03/18 07:25 Lab results: WBC 8.3 thou/uL (4.8-10.8) 11/02/18 23:47 Hgb 14.2 g/dL (14.0-18.0) 11/02/18 23:47 Hct 40.4 % (42.0-52.0) L 11/02/18 23:47 MCV 86.2 fL (78.0-98.0) 11/02/18 23:47 Plt Count 289 thou/uL (130-400) 11/02/18 23:47 Neutrophils % 68.6 % (42.0-75.0) 11/02/18 23:47 Sodium 123 mmol/L (136-145) L 11/02/18 23:47 Potassium 3.8 mmol/L (3.5-5.1) 11/02/18 23:47 Chloride 90 mmol/L (98-107) L 11/02/18 23:47 Carbon Dioxide 26 mmol/L (22-29) 11/02/18 23:47 BUN 10 mg/dL (8.9-20.6) 11/02/18 23:47 Creatinine 1.07 mg/dL (0.7-1.3) 11/02/18 23:47 Glucose 638 mg/dL (70-105) H* 11/02/18 23:47 Lactic Acid 1.1 mmol/L (0.5-2.2) 11/02/18 23:47 Calcium 9.2 mg/dL (7.8-10.44) 11/02/18 23:47 Total Bilirubin 0.6 mg/dL (0.2-1.2) 11/02/18 23:47 AST 14 U/L (5-34) 11/02/18 23:47 ALT 15 U/L (8-55) 11/02/18 23:47 Alkaline Phosphatase 191 U/L (40-150) H 11/02/18 23:47 Serum Total Protein 8.8 g/dL (6.0-8.3) H 11/02/18 23:47 Albumin 3.6 g/dL (3.5-5.0) 11/02/18 23:47 Urine Ketones Negative mg/dL (Negative) 11/03/18 00:03 Urine Blood Negative (Negative) 11/03/18 00:03 Urine Nitrite Negative (Negative) 11/03/18 00:03 Ur Leukocyte Esterase Negative [place]/uL (Negative) 11/03/18 00:03 FMR H&P: A/P - Plan 38 yo male admitted for: Hyperglycemia: - initial bG of 600 - Weight based insulin ordered: 20 U lantus in AM, 3 U humalog WM - Hypoglycemia protocol and sliding scale ordered - A1C pending - NS at 125 mL/hr - BMP checks q4h x3 to monitor electrolytes and potassium Multiple soft tissue abscesses, penile abscess, balinitis: - Blood cx pending - Sono of abscesses - Vancomycin - denies sharing needles but reuses his own after washing w/ bleach: will pursue infectious workup of HIV, Hep B/C w/ RNA quant - Consider I&D if simple abscess. If tracking, consult surgery. - For penile abscess, STI workup: RPR, Gc/chlamydia - Urology consult for balinitis - Toradol IV for pain New murmur in setting of IV drug use: - Echo - Educate patient on vein care and proper injection technique Methamphetamine usage and possible meth-induced psychosis: - Monitor on telemetry for withdrawal symptoms - consider consult to poison control - [facility] consult when pt medically stable - Consider having a 24-hr sitter. patient not expressing SI but is emotionally distressed. Hx of cirrhosis and Hep C s/p treatment: - CMP - continue to monitor Code: full VTE PPx: not given due to concern for cirrhosis and liver function, hx of hematemesis Disposition/LOS: Admit for Obs to telemetry. FMR H&P: Upper Level - Pertinent history 38 yo male with pmhx of uncontrolled type 1? diabetes, meth use presents with several abscesses. One on his neck, left armpit, and penis, as well as several small ones all over his arms. Also complains of seeing things and hearing things that are not there. Most recent meth use was yesterday around 1700. Without insurance and not taking insulin since this summer. Also complains of trouble with his foreskin. He cannot retract his penis, it is swollen and painful. He was told he had chlamydia in July. - Pertinent findings VSS PE: 3 in diameter abscess with surrouding cellulits in left armpit, ~3-4cm abscess on cervical neck, 1cm absces on penis, multiple suspected abscesses in arms bilaterally. RRR CTAB no w/r/r penis with circumferential swelling of foreskin, and white discharge multiple tattoos dry mucous membranes - Plan Date/Time: 11/03/18 0210 38 yo male with pmhx of type 1 mixed diabetes off medications since July and IVDU (meth) who presents with abscesses, admitted for abscesses 2/2 IVDU ( failed outpatient management) and hyperglycemia. #Multiple abscesses -2/2 meth IVDU -Mostly hard, indurated -Ordered blood cultures -Started vanc -Ordered US of skin/soft tissue to assess for areas that could be drained and to see how far/deep the abscesses track, if tracking into muscle, I would consult surgery #Hyperglycemia -does not meet criteria for DKA vs HHS -will monitor with q2h accuchecks, serial BMPs, monitor potassium -fluid resuscitation -hba1c ordered -Lantus 20U qam started, 3U Humalog AC -hypoglycemia protocol -sliding scale insulin #holosystolic murmur -TTE ordered -empiric coverage with vanc currently -blood cultures pending #Meth abuse -recent IVDU yesterday at 1700 -monitor for s/s of withdrawal -ativan prn agitation #Meth induced psychosis -VH, AH -ativan prn -[facility] consult after medical clearance #Uncontrolled type 1 mixed diabetes -see hyperglycemia #Incarceration, tattoos -tb, hiv, hep c, hep b #penile abscess -vanc -abscess draining #balanitis -candidiasis -urology consult #Hep c -treated per patient -hep c antibody and quant ordered Robert Garcia MD, PGY-3
[2018-11-03] MEDS ORDERED: Dextrose 5% in Water 1,000 ML IV PRN (02:42)
[2018-11-03] MEDS ORDERED: Bisacodyl 5 MG TAB PO PRN (02:42)
[2018-11-03] MEDS ORDERED: Ondansetron ODT 4 MG TAB PO PRN (02:42)
[2018-11-03] MEDS ORDERED: Ondansetron PF 4 MG/2 ML Vial IVP PRN (02:42)
[2018-11-03] MEDS ORDERED: Dextrose 50% Abboject 50 ML SYRINGE SLOW IVP PRN (02:42)
[2018-11-03] MEDS ORDERED: Ketorolac Tromethamine 30 MG/ML VIAL ONE (03:37)
[2018-11-03] MEDS ORDERED: Ketorolac Tromethamine 30 MG/ML VIAL IVP SCH (03:45)
[2018-11-03 04:37] VITALS: BMI 19.2
[2018-11-03] MEDS: Sodium Chloride 0.9% 1,000 ML IV SCH ×3 (04:55→20:58)
[2018-11-03 05:32] LABS: #Basophils 0.1 thou/uL (0.0-0.2); #Eosinphils 0.1 thou/uL (0.0-0.7); #Lymphocytes 2.2 thou/uL (1.20-3.40); #Monocytes 0.5 thou/uL (0.11-0.59); #Neutrophils 5.2 thou/uL (1.40-6.50); %Basophils 0.8 % (0.0-1.0); %Eosinophils 1.4 % (0.0-10.0); %Lymphocytes 27.1 % (21.0-51.0); %Monocytes 6.6 % (0.0-10.0); %Neutrophils 64.2 % (42.0-75.0); Hemoglobin 14.1 g/dL (14.0-18.0); Mean Corpuscular HGB CONC 34.9 g/dL (32.0-36.0); Mean Corpuscular Hemoglobin 29.9 pg (27.0-31.0); Mean Corpuscular Volume 85.6 fL (78.0-98.0); Mean Platelet Volume 6.2 fL (7.4-10.4); Platelet Count 300 thou/uL (130-400); RBC Distribution Width 12.3 % (11.5-14.5); Red Blood Cell (RBC) Count 4.72 mill/uL (4.70-6.10)
[2018-11-03 05:33] LABS: ALT (SGPT) 15 U/L (8-55); AST (SGOT) 16 U/L (5-34); Albumin 3.5 g/dL (3.5-5.0); Alkaline Phosphatase 174 U/L (40-150); Anion Gap 12 mmol/L (10-20); BUN (Urea Nitrogen) 9 mg/dL (8.9-20.6); Bilirubin, Total 0.5 mg/dL (0.2-1.2); Calc. Creatinine Clearance 83 mL/min (70-130); Calcium 8.6 mg/dL (7.8-10.44); Carbon Dioxide 23 mmol/L (22-29); Chloride 97 mmol/L (98-107); Estimated GFR-MDRD 86; Glucose 325 mg/dL (70-105); Potassium 3.7 mmol/L (3.5-5.1); Protein, Total 8.5 g/dL (6.0-8.3); Sodium 128 mmol/L (136-145)
[2018-11-03 05:45] LABS: Hemoglobin A1c 13.9 % (4.0-6.0)
[2018-11-03] MEDS: Vancomycin HCl 1 GM in Premix Bag 1 BAG IVPB SCH ×2 (05:59→18:50)
[2018-11-03 06:04] LABS: Syphilis Antibody Nonreactive (Nonreactive); Syphilis Antibody Index 0.07 S/CO (<1.00 Non-Reactive)
[2018-11-03 06:18] LABS: HBSAg Index 0.13 S/CO (0-0.99); HIV (1/2) Antibody/Antigen Non-Reactive (NonReactive); HIV 1/2 INDEX 0.17 S/CO (<1.00); Hep B Surf Ag Non-Reactive S/CO (NonReactive)
[2018-11-03 06:19] LABS: Hep C IgG Ab Reflex HepC Qnt (NonReactive); Hep C Index 8.74 S/CO (0-0.79)
--- NOTE | 2018-11-03 06:25 | PDOC.FM ---
- Objective MAR Reviewed: Yes Vital Signs & Weight: Vital Signs (12 hours) Temp Pulse Resp BP Pulse Ox 11/03/18 04:13 98.1 F 99 18 121/83 99 Weight Weight 57.334 kg I&O: 11/01/18 11/02/18 11/03/18 06:59 06:59 06:59 Intake Total 1050 Output Total 700 Balance 350 Result Diagrams: 11/03/18 05:00 11/03/18 05:00 Dx/Plan (1) Abscess Code(s): L02.91 - CUTANEOUS ABSCESS, UNSPECIFIED Status: Acute (2) Methamphetamine abuse Code(s): F15.10 - OTHER STIMULANT ABUSE, UNCOMPLICATED Status: Acute (3) Balanitis Code(s): N48.1 - BALANITIS Status: Acute (4) DM2 (diabetes mellitus, type 2) Status: Chronic
[2018-11-03 08:10] LABS: Anion Gap 14 mmol/L (10-20); BUN (Urea Nitrogen) 9 mg/dL (8.9-20.6); Calc. Creatinine Clearance 86 mL/min (70-130); Carbon Dioxide 18 mmol/L (22-29); Chloride 97 mmol/L (98-107); Estimated GFR-MDRD 89; Glucose 458 mg/dL (70-105); Potassium 4.4 mmol/L (3.5-5.1); Sodium 125 mmol/L (136-145)
--- NOTE | 2018-11-03 08:36 | ULT ---
US Neck Soft Tissue History: Abscess Comparison: None. Findings: At the area of interest in the posterior neck is edematous and inflamed subcutaneous fat. E cathy thickness changes. No drainable fluid collection. Impression: Cellulitis and panniculitis of the skin and subcutaneous fat early phlegmonous change. No drainable fluid collection.
[2018-11-03] MEDS: HumaLOG 300 UNITS/3 ML VIAL SC SCH ×3 (08:46→19:19)
[2018-11-03] MEDS: HumaLOG 300 UNITS/3 ML VIAL SC PRN ×6 (08:47→23:07)
[2018-11-03] MEDS: Famotidine/PF 20 mg/2ml Vial SLOW IVP SCH ×2 (08:48→21:00)
[2018-11-03] MEDS: Polyethylene Glycol 3350 17 GM Packet PO SCH (08:48)
[2018-11-03] MEDS ORDERED: Vancomycin HCl 1 GM in Premix Bag 1 BAG IVPB SCH (09:00)
[2018-11-03] MEDS ORDERED: Insulin Glargine 20 UNITS in Pre-Filled Syringe 1 EACH SC SCH (09:00)
--- NOTE | 2018-11-03 10:21 | ULT ---
SOFT TISSUE ULTRASOUND: HISTORY: Swelling underneath the left axilla x 2 weeks. COMPARISON: None. TECHNIQUE: Targeted sonographic imaging of the left axilla is performed. Static images are reviewed. FINDINGS: Mixed echotexture focus in the left axilla measuring 4.1 x 1.3 x 3.1 cm. The lesion is noncompressib le. There is some vascular flow. IMPRESSION: Heterogeneous mass in the left axilla with vascular flow. Better interrogation with an MRI may be be neficial. POS: [facility]
[2018-11-03] MEDS: Ketorolac Tromethamine 30 MG/ML VIAL IVP PRN ×2 (11:27→20:58)
[2018-11-03] MEDS: Lorazepam 2 MG/ML VIAL SLOW IVP PRN (11:29)
[2018-11-03 13:42] LABS: Anion Gap 12 mmol/L (10-20); BUN (Urea Nitrogen) 7 mg/dL (8.9-20.6); Calc. Creatinine Clearance 97 mL/min (70-130); Calcium 8.9 mg/dL (7.8-10.44); Carbon Dioxide 23 mmol/L (22-29); Chloride 98 mmol/L (98-107); Estimated GFR-MDRD Greater than 90; Glucose 344 mg/dL (70-105); Potassium 3.9 mmol/L (3.5-5.1); Sodium 129 mmol/L (136-145)
[2018-11-03 13:58] LABS: HBSAB Concentration 0.39 mIU/mL; Hep B Core Total Ab Non-Reactive (NonReactive); Hep B Core Total Index 0.14 S/CO (0-0.79); Hep B Surf AB Non-Reactive (NonReactive)
--- NOTE | 2018-11-03 14:23 | HP ---
HISTORY OF PRESENT ILLNESS: I have examined the patient. I have discussed the case with Dr. Ackerman and agree with her assessment and plan. Mr. Bolton is a 38-year-old male with diabetes and a history of hepatitis C evidently treated. He presented with several abscesses on the neck, armpit, and penis. He has been admitted for intravenous therapy and further workup of his numerous problems. He has also a history of previous drug use and abuse and a history of incarceration. PHYSICAL EXAMINATION: VITAL SIGNS: His blood pressure is 120/80, his heart rate is 99, respirations are 18. He is afebrile, and his room air pulse ox is 99%. GENERAL: He is a little sleepy this morning, but easily arousable and when arousable, awake, and oriented. EARS, NOSE, AND THROAT: No erythema. No exudate. NECK: Supple. CARDIAC: Heart rhythm regular, but he has a grade 2-3/6 holosystolic murmur. LUNGS: Clear without any evidence of respiratory distress. ABDOMEN: Flat and soft. NEUROLOGIC: Neurologically, he has no focal deficits. He does have a large 3 cm abscess over the posterior neck, a larger abscess in the left armpit, and a penis abscess. He also has some balanitis. Multiple tattoos. LABORATORY DATA: CBC: White count is 8300, hemoglobin 14.2, hematocrit with an MCV of 86. Chemistries; his sodium is 128, potassium 3.7, chloride 97, bicarb 23, BUN 9, and creatinine 0.97, blood glucose is 325. His A1c is 13.9. Toxicologies of the urine are positive for amphetamines and methamphetamines. Serologies; his syphilis IgG/IgM antibody is negative. His hep B surface antigen is negative. His HIV antigen is negative. His hep C antibody is positive with further evaluation currently occurring. Given his hep C, he needs to be checked for immunity to hepatitis A and hepatitis B. If found to be not immune, he needs to be immunized for these diseases. ASSESSMENT: Multiple soft tissue infections and early abscesses. PLAN: Begin broad-spectrum antibiotics. Monitor the abscess and see if I and D becomes necessary. Continue to evaluate his hepatitis C status. Job ID: [id number]
[2018-11-03] MEDS ORDERED: Diazepam 5 MG TAB PO PRN (14:34)
[2018-11-03] MEDS ORDERED: Thiamine 100 MG TAB PO SCH (14:45)
[2018-11-03] MEDS ORDERED: Diazepam 5 MG TAB PO SCH (14:45)
[2018-11-03] MEDS ORDERED: Thiamine HCl 200 MG/2 ML VIAL IM SCH (14:45)
[2018-11-03] MEDS ORDERED: Multivitamin W/ Minerals 1 TAB PO SCH (14:45)
[2018-11-03 16:55] LABS: Anion Gap 8 mmol/L (10-20); BUN (Urea Nitrogen) 8 mg/dL (8.9-20.6); Calc. Creatinine Clearance 113 mL/min (70-130); Calcium 8.6 mg/dL (7.8-10.44); Carbon Dioxide 25 mmol/L (22-29); Chloride 99 mmol/L (98-107); Estimated GFR-MDRD Greater than 90; Glucose 246 mg/dL (70-105); Sodium 128 mmol/L (136-145)
[2018-11-03] MEDS: Nicotine 14 MG PATCH TD PRN (17:33)
[2018-11-03] MEDS: Senokot S 8.6-50 MG TAB PO SCH (21:02)
[2018-11-03] MEDS: Thiamine 100 MG TAB PO SCH (21:12)
--- NOTE | 2018-11-03 21:23 | CON ---
DATE OF CONSULTATION: 11/03/2018 HISTORY OF PRESENT ILLNESS: This is a 38-year-old male I was asked to see today by the [facility]. I was asked to see him because of problems with his foreskin and possible abscess on the penis. He was admitted I think in the early childhood hours, last night at a [facility] team. He apparently has an abscess on his neck and on one of his axilla and he has been admitted, started on vancomycin. He is completely asleep and not really arousable, although his vital signs are stable. He is apparently a meth addict and has been using that until he came in last night and he has been given something to calm him down, so I could not get any questions answered from him at all, but I was able to talk to his and I was also able to review some records on him when he was in the [facility] Emergency Room on August 16. At that time, he was in with the same complaints of his problems with his foreskin and ulcer on the right dorsal part of the penis. He was put on initially clindamycin and Diflucan. It was just felt he had yeast balanitis as well as phimosis and he had had a chlamydia PCR sent and it came back positive and he was called and the clindamycin was stopped and he was switched to doxycycline and also continued on the Diflucan. He had been recommended to see a urologist, but he had not gone in to see them. So, he is in now with more of the same related to the urinary tract. His urinalysis is clear except for glucose. Toxicology is positive for amphetamines and methamphetamines. Serology looks like he has a history of hepatitis C, but his HIV status is negative. His creatinine is normal at 0.8, mildly hyponatremic with 129. His white count is normal today. His hemoglobin is normal at 14.1, his platelet count is 300. On exam, his abdomen is flat and nontender without mass or tenderness. Bladder is not distended. The penis is not circumcised and he does have some phimosis and a lot of balanitis with some smegma covering the glans and inner foreskin. There is nothing to suggest cellulitis. He does have an area of subcutaneous nodule on the right, not quite out mid shaft with a dry eschar over it and this is an area that his says he was squeezing to get pus to come out periodically. There is no surrounding cellulitis or fluctuance and this is at the same place. This was seen according to the diagram when he was seen on August 16. The testicles are descended. He has some induration of the right vas. There is no testicular mass and there is no scrotal mass or abscess, did not do a rectal exam. Further review at [facility], the patient did have a CAT scan done there that was normal. I think that the CAT scan was done to be sure he did not have any intraabdominal process. It does not appear that he had a significant amount of abdominal pain during that visit, but does mention that showed no acute findings in the abdomen or pelvis. He did have some nonspecific right inguinal adenopathy on that which he still has today on his exam, some shotty right inguinal lymph nodes. I think this is probably just related to the penile lesion. His medical history includes diabetes and has not been under good control recently. He has a history of hepatitis C and a history of apparently some ascites related to that in the past, although he does not have that now. He has had a hernia repair. He has had I and D of abscesses. He has had liver biopsies, had cholecystectomy, he currently has significant history for drug abuse. IMPRESSION: From a urology standpoint, this patient with a normal urine, apparently not having difficulty urinating. He has recently been partially treated for chlamydia. Otherwise, he only took a few of the pills that were called in for him, so I have written the order for tasks that he has his GC and chlamydia PCR rechecked. He has what appears to probably be a stable subcutaneous lesion on the penis that does not appear to require drainage at this time. He has active balanitis that they are using nystatin for. If he could get his diabetes under control and if he could curtail his drug use, then he probably would do well with a circumcision in terms of providing much easier way to keep himself clean. So perhaps, over the next few days, if he is in the hospital, some of these issues can be figured out and we can look at making some type of disposition regarding this. At this point, I do not see any need for any emergent surgery on his genitalia. I will follow along with you. Job ID: [id number]
[2018-11-04] MEDS: HumaLOG 300 UNITS/3 ML VIAL SC PRN ×7 (01:21→19:30)
[2018-11-04] MEDS: Sodium Chloride 0.9% 1,000 ML IV SCH ×4 (03:15→21:18)
[2018-11-04] MEDS ORDERED: Diazepam 5 MG TAB PO PRN (04:00)
[2018-11-04] MEDS ORDERED: Sodium Bicarb 50 MEQ/50 ML VIAL ONE (04:18)
--- NOTE | 2018-11-04 05:14 | PDOC.FM ---
- Subjective Subjective: Spoke with pt briefly this morning. He says he is feeling well. Unable to maintain conversation, due to excessive sleepiness. Spoke with nurses and he received tordal for "pain all over." They said he ate his lunch about 5 yesterday and is sleeping really well. He has not had a bowel movement. - Objective MAR Reviewed: Yes Vital Signs & Weight: Vital Signs (12 hours) Temp Pulse Resp BP BP Pulse Ox 11/04/18 04:00 98.2 F 84 18 122/87 99 11/04/18 02:42 99 11/03/18 23:36 98.2 F 85 18 109/72 99 11/03/18 23:10 109/72 11/03/18 20:20 97.9 F 107 H 20 129/82 129/82 99 Weight Admit Weight 57.334 kg Weight 55.248 kg I&O: 11/02/18 11/03/18 11/04/18 06:59 06:59 06:59 Intake Total 1050 2975 Output Total 700 Balance 350 2975 Result Diagrams: 11/03/18 05:00 11/03/18 16:14 Phys Exam - Physical Examination Constitutional: NAD HEENT: moist MMs Neck: no nodes, supple Respiratory: clear to auscultation bilateral Cardiovascular: RRR systolic murmur loudest in mitral region Gastrointestinal: soft, non-tender, no distention, positive bowel sounds Musculoskeletal: no edema, pulses present Neurological: normal sensation Psychiatric: normal affect Skin: cap refill <2 seconds Deviation from normal: abscess present on arms and back of neck, as well as dorsum of penis Dx/Plan (1) Abscess Code(s): L02.91 - CUTANEOUS ABSCESS, UNSPECIFIED Status: Acute (2) Methamphetamine abuse Code(s): F15.10 - OTHER STIMULANT ABUSE, UNCOMPLICATED Status: Acute (3) Balanitis Code(s): N48.1 - BALANITIS Status: Acute (4) DM2 (diabetes mellitus, type 2) Status: Chronic - Plan Plan: 38 yo male admitted for possible DKA. 1. Hyperglycemia * initial bG of 600 * Insulin regimen: 30 U lantus in AM, 3 U humalog WM * Hypoglycemia protocol and sliding scale ordered * A1C pending * NS at 125 mL/hr * [facility] checks q4h x3 to monitor electrolytes and potassium 2. Multiple soft tissue abscesses, penile abscess, balinitis denies sharing needles but reuses his own after washing w/ bleach * Blood cx pending * US of abscess of dorsal neck & L axillary abscess: shows no fluid collection to be drained. Cellulitis present * Vancomycin * HIV, Hep B, RPR: Neg * Hep C RNA, G/C: pending * If tracking, consult surgery. * For penile abscess, Urology consult for balinitis and dorsal penis abscess, appreciate Recs. Want to check G/C PCR due to incomplete treatment for previous diagnosis. * Toradol IV for pain 3. New murmur in setting of IV drug use Systolic murmur 3/ * Echo: EF 50-55% with Mild mitral, aortic, and tricuspid regurge with increased PAP and thickened AV leaflet. * Will continue current Abx regimen due to unlikeliness of endocarditis 4. Methamphetamine usage & meth-induced psychosis Visual and Auditory Hallucinations * Monitor on telemetry for withdrawal symptoms * MR consult when pt medically stable * Ativan prn 5. Possible Alcohol Abuse Pt expressed to nurse he gets seizures from alcohol withdrawal * ROSHNI protocol 6. Hx of cirrhosis and Hep C s/p treatment: * CMP * continue to monitor Condition: Stable Lines: Peripheral Diet: CC Code Status: full VTE PPx: not given due to concern for cirrhosis and liver function, hx of hematemesis Dispo: Inpt, will need to see what blood cultures grow out. Addendum - Attending - Attending Attestation Date/Time: 11/04/18 3538 I personally evaluated the patient and discussed the management with Dr. Mariano I agree with the History, Examination, Assessment and Plan documented above with any addition or exceptions noted below. Patient with concerns needing urgent circumcision advised patient voiding well and need to control DM and yeast balanitis . Wound care seeing patient, concern carbuncle /abscess nape of neck and left axilla may benefit from I&D will consult General surgery. Continue current antibiotic Echocardiogram noted no vegetations seen thickened aortic valve leaflets noted. Patient would benefit from antidepressant spouse in room discussed care plan and history of substance abuse and need to change lifestyle.
[2018-11-04] MEDS: Vancomycin HCl 1 GM in Premix Bag 1 BAG IVPB SCH ×2 (05:46→17:58)
[2018-11-04] MEDS ORDERED: Insulin Glargine 30 UNITS in Pre-Filled Syringe 1 EACH SC SCH (09:00)
[2018-11-04] MEDS: HumaLOG 300 UNITS/3 ML VIAL SC SCH ×3 (09:46→21:20)
[2018-11-04] MEDS: Folic Acid 1 MG TAB PO SCH (09:50)
[2018-11-04] MEDS: Senokot S 8.6-50 MG TAB PO SCH ×2 (09:50→21:17)
[2018-11-04] MEDS: Polyethylene Glycol 3350 17 GM Packet PO SCH (09:50)
[2018-11-04] MEDS: Multivitamin W/ Minerals 1 TAB PO SCH (09:50)
[2018-11-04] MEDS: Thiamine 100 MG TAB PO SCH ×2 (09:50→21:17)
[2018-11-04] MEDS: Magnesium Oxide 400 MG TAB PO SCH (09:51)
[2018-11-04] MEDS: Famotidine/PF 20 mg/2ml Vial SLOW IVP SCH ×2 (09:57→21:28)
[2018-11-04] MEDS: Ketorolac Tromethamine 30 MG/ML VIAL IVP PRN ×2 (14:05→22:14)
[2018-11-04] MEDS: Lorazepam 2 MG/ML VIAL SLOW IVP PRN ×2 (14:08→22:21)
[2018-11-04] MEDS ORDERED: Fluconazole 100 MG TAB PO SCH (16:00)
--- NOTE | 2018-11-04 16:49 | CON ---
DATE OF CONSULTATION: CHIEF COMPLAINT: Upper posterior neck abscess, left axillary abscess. HISTORY OF PRESENT ILLNESS: The patient is a 38-year-old male, history of IV drug abuse with 2-week history of infections of his neck, axilla, and penis. Urology has already evaluated his penis, did not feel any surgical intervention was necessary. He recently ate lunch. PAST MEDICAL HISTORY: IV drug abuse, hepatitis C, and diabetes. PAST SURGICAL HISTORY: None. MEDICATIONS: No medications. ALLERGIES: NO KNOWN DRUG ALLERGIES. SOCIAL HISTORY: Unemployed. IV drug abuse. History of recent incarceration. FAMILY HISTORY: Noncontributory. PHYSICAL EXAMINATION: VITAL SIGNS: Temperature 98.3, pulse 96, and blood pressure 136/85. GENERAL: He is very sedated, difficult to arouse and awaken, but could get him to answer some questions. SKIN: He has about a 3 cm raised erythematous tender mass just at the base of his scalp in the posterior neck. He also has one about the same size in his left axilla really on the upper inner arm. ASSESSMENT: Abscesses. PLAN: I and D in the morning. I am not sure he understands yet, so we will have to wait for him to wake up, so we can get an informed consent. Job ID: [id number]
[2018-11-04 17:24] LABS: Vancomycin, Trough 3.5 ug/mL
[2018-11-04] MEDS: Nicotine 14 MG PATCH TD PRN (17:59)
[2018-11-04] MEDS ORDERED: Vancomycin HCl 1 GM in Premix Bag 1 BAG IVPB SCH (19:15)
[2018-11-04] MEDS ORDERED: Famotidine 20 MG TAB PO SCH (22:00)
[2018-11-05] MEDS: Sodium Chloride 0.9% 1,000 ML IV SCH ×3 (04:41→18:22)
--- NOTE | 2018-11-05 05:38 | PDOC.FM ---
- Subjective Subjective: Pt says he is going on withdrawal of the meth. He said he is having abdominal pain and feeling nauseous this morning. - Objective MAR Reviewed: Yes Vital Signs & Weight: Vital Signs (12 hours) Temp Pulse Resp BP BP Pulse Ox 11/05/18 04:00 110/72 11/05/18 03:29 98.2 F 89 16 110/72 99 11/04/18 20:00 98.0 F 104 H 16 130/86 130/86 100 Weight Admit Weight 57.334 kg Weight 57.833 kg I&O: 11/03/18 11/04/18 11/05/18 06:59 06:59 06:59 Intake Total 1050 5175 2762 Output Total 700 1850 2675 Balance 350 3325 87 Result Diagrams: 11/05/18 06:16 11/05/18 06:16 Phys Exam - Physical Examination Constitutional: NAD HEENT: PERRLA, moist MMs, oral pharynx no lesions Neck: supple, full ROM Respiratory: clear to auscultation bilateral Cardiovascular: RRR, no significant murmur Gastrointestinal: soft, non-tender, positive bowel sounds Musculoskeletal: no edema, pulses present Neurological: moves all 4 limbs Deviation from normal: irritable mood depressed effect Skin: no rash, cap refill <2 seconds Dx/Plan (1) Abscess Code(s): L02.91 - CUTANEOUS ABSCESS, UNSPECIFIED Status: Acute (2) Methamphetamine abuse Code(s): F15.10 - OTHER STIMULANT ABUSE, UNCOMPLICATED Status: Acute (3) Balanitis Code(s): N48.1 - BALANITIS Status: Acute (4) DM2 (diabetes mellitus, type 2) Status: Chronic - Plan Plan: 38 yo male admitted for possible DKA. 1. Hyperglycemia * initial bG of 600 * Insulin regimen: 45 U lantus in AM, 3 U humalog WM * Hypoglycemia protocol and sliding scale ordered * A1C: 13.9 * NS at 125 mL/hr * BMP checks q4h x3 to monitor electrolytes and potassium 2. Multiple soft tissue abscesses, penile abscess, balinitis denies sharing needles but reuses his own after washing w/ bleach * Blood cx pending * US of abscess of dorsal neck & L axillary abscess: shows no fluid collection to be drained. Cellulitis present * Vancomycin * HIV, Hep B, RPR: Neg * Hep A Ab: Positive * Hep C RNA, G/C: pending * Consulted Surgery yesterday to manuel the abscesses, should be done today. * For penile abscess, Urology consult for balinitis and dorsal penis abscess, appreciate Recs. Want to check G/C PCR due to incomplete treatment for previous diagnosis. * Toradol IV for pain 3. New murmur in setting of IV drug use Systolic murmur 3/6 * Echo: EF 50-55% with Mild mitral, aortic, and tricuspid regurge with increased PAP and thickened AV leaflet. * Will continue current Abx regimen due to unlikeliness of endocarditis 4. Methamphetamine usage & meth-induced psychosis Visual and Auditory Hallucinations * Monitor on telemetry for withdrawal symptoms * [facility] consult when pt medically stable * Ativan prn 5. Possible Alcohol Abuse Pt expressed to nurse he gets seizures from alcohol withdrawal * ROSHNI protocol 6. Hx of cirrhosis and Hep C s/p treatment: * Monitoring 7. Balanitis * Nystatin ordered per urology recs * Diflucan ordered * UCx: Group A Strep <10,000 cfu, so likely contaminate. Condition: Stable Lines: Peripheral Diet: NPO for abscesses Code Status: full VTE PPx: not given due to concern for cirrhosis and liver function, hx of hematemesis Dispo: Inpt, getting abscesses lanced by surgery today. Addendum - Attending - Attending Attestation Date/Time: 11/05/18 4739 I personally evaluated the patient and discussed the management with Dr. Marinao I agree with the History, Examination, Assessment and Plan documented above with any addition or exceptions noted below. Need to continue insulin adjustment convert po antibiotics soon. Patient tentatively for I&D today will decrease benzodiazepines patient exhibiting drug seeking behavior.
[2018-11-05 06:27] LABS: #Basophils 0.1 thou/uL (0.0-0.2); #Eosinphils 0.1 thou/uL (0.0-0.7); #Lymphocytes 1.8 thou/uL (1.20-3.40); #Monocytes 0.5 thou/uL (0.11-0.59); #Neutrophils 3.7 thou/uL (1.40-6.50); %Eosinophils 2.4 % (0.0-10.0); %Lymphocytes 28.5 % (21.0-51.0); %Monocytes 8.6 % (0.0-10.0); %Neutrophils 59.6 % (42.0-75.0); Hemoglobin 14.1 g/dL (14.0-18.0); Mean Corpuscular HGB CONC 35.5 g/dL (32.0-36.0); Mean Corpuscular Hemoglobin 31.2 pg (27.0-31.0); Mean Corpuscular Volume 87.9 fL (78.0-98.0); Mean Platelet Volume 5.9 fL (7.4-10.4); Platelet Count 288 thou/uL (130-400); RBC Distribution Width 12.4 % (11.5-14.5); Red Blood Cell (RBC) Count 4.51 mill/uL (4.70-6.10); White Blood Cell (WBC) Count 6.3 thou/uL (4.8-10.8)
[2018-11-05 06:46] LABS: Anion Gap 9 mmol/L (10-20); BUN (Urea Nitrogen) 16 mg/dL (8.9-20.6); Calc. Creatinine Clearance 101 mL/min (70-130); Calcium 8.4 mg/dL (7.8-10.44); Carbon Dioxide 23 mmol/L (22-29); Chloride 99 mmol/L (98-107); Estimated GFR-MDRD Greater than 90; Glucose 378 mg/dL (70-105); Potassium 4.1 mmol/L (3.5-5.1); Sodium 127 mmol/L (136-145)
[2018-11-05] MEDS: Magnesium Oxide 400 MG TAB PO SCH (08:25)
[2018-11-05] MEDS: Senokot S 8.6-50 MG TAB PO SCH ×2 (08:25→20:10)
[2018-11-05] MEDS: Thiamine 100 MG TAB PO SCH ×2 (08:25→20:10)
[2018-11-05] MEDS: Multivitamin W/ Minerals 1 TAB PO SCH (08:25)
[2018-11-05] MEDS: Fluconazole 100 MG TAB PO SCH (08:25)
[2018-11-05] MEDS: Folic Acid 1 MG TAB PO SCH (08:25)
[2018-11-05] MEDS: Polyethylene Glycol 3350 17 GM Packet PO SCH (08:26)
[2018-11-05] MEDS: Famotidine 20 MG TAB PO SCH ×2 (08:26→20:10)
[2018-11-05] MEDS: HumaLOG 300 UNITS/3 ML VIAL SC SCH ×3 (08:27→17:27)
[2018-11-05] MEDS: Ketorolac Tromethamine 30 MG/ML VIAL IVP PRN (08:28)
[2018-11-05] MEDS: Lorazepam 2 MG/ML VIAL SLOW IVP PRN ×3 (08:29→23:15)
[2018-11-05] MEDS ORDERED: Insulin Glargine 45 UNITS in Pre-Filled Syringe 1 EACH SC SCH (09:00)
[2018-11-05] MEDS ORDERED: Fentanyl 100 MCG/2 ML VIAL ONE ×2 (10:58→10:59)
[2018-11-05] MEDS ORDERED: Insulin Regular 300 UNITS/3 ML VIAL ONE (10:59)
[2018-11-05] MEDS ORDERED: HYDROcodone/Acetaminophen 5/325 mg Tablet PO PRN (12:19)
[2018-11-05] MEDS ORDERED: Ketorolac Tromethamine 30 MG/ML VIAL IVP PRN (12:28)
[2018-11-05] MEDS ORDERED: Promethazine HCl 25 MG/ML VIAL IM PRN (12:28)
[2018-11-05] MEDS ORDERED: PACU-Morphine 4MG/ML VIAL SLOW IVP PRN (12:28)
[2018-11-05] MEDS ORDERED: Ondansetron HCl/PF 4 MG/2 ML Vial IVP PRN (12:28)
[2018-11-05] MEDS ORDERED: Morphine Sulfate 2 MG/ML SYRINGE SLOW IVP PRN (12:28)
[2018-11-05] MEDS ORDERED: HYDROmorphone 2 MG/ML VIAL SLOW IVP PRN (12:28)
[2018-11-05] MEDS ORDERED: Meperidine HCl/PF 25 MG/ML VIAL SLOW IVP PRN (12:28)
[2018-11-05] MEDS ORDERED: Promethazine HCl 25 MG/ML VIAL SLOW IVP PRN (12:28)
[2018-11-05] MEDS: HYDROcodone/Acetaminophen 5/325 mg Tablet PO PRN ×3 (13:58→23:14)
[2018-11-05] MEDS ORDERED: Succinylcholine Chloride 20 MG/ML 10 ml SYRINGE FS ONE (14:23)
[2018-11-05] MEDS ORDERED: Lidocaine 1% PF 5 ML VIAL ONE (14:23)
[2018-11-05] MEDS ORDERED: PROPOFOL 200 MG/20 ML VIAL ONE (14:23)
[2018-11-05] MEDS ORDERED: Ondansetron PF 4 MG/2 ML Vial ONE (14:23)
[2018-11-05] MEDS ORDERED: Dexamethasone 20 MG/5 ML VIAL ONE (14:23)
[2018-11-05] MEDS ORDERED: PHENYLEPHRINE-NS 100 MCG/ML 10 ML SYRINGE ONE (14:23)
[2018-11-05] MEDS: HumaLOG 300 UNITS/3 ML VIAL SC PRN ×3 (17:27→20:30)
[2018-11-05 17:58] LABS: Vancomycin, Trough 10.7 ug/mL
[2018-11-05 20:31] LABS: Chlam.trachomatis by PCR,Urine DETECTED (NotDetected)
[2018-11-06] MEDS: Lorazepam 2 MG/ML VIAL SLOW IVP PRN (04:56)
[2018-11-06] MEDS: HYDROcodone/Acetaminophen 5/325 mg Tablet PO PRN (04:58)
[2018-11-06 05:31] LABS: #Lymphocytes 1.4 thou/uL (1.20-3.40); #Monocytes 0.8 thou/uL (0.11-0.59); #Neutrophils 6.8 thou/uL (1.40-6.50); %Basophils 0.2 % (0.0-1.0); %Eosinophils 0.5 % (0.0-10.0); %Lymphocytes 15.6 % (21.0-51.0); %Monocytes 8.3 % (0.0-10.0); %Neutrophils 75.4 % (42.0-75.0); Hemoglobin 13.2 g/dL (14.0-18.0); Mean Corpuscular Hemoglobin 30.8 pg (27.0-31.0); Mean Corpuscular Volume 87.9 fL (78.0-98.0); Mean Platelet Volume 6.2 fL (7.4-10.4); Platelet Count 256 thou/uL (130-400); Red Blood Cell (RBC) Count 4.28 mill/uL (4.70-6.10)
[2018-11-06] MEDS: Sodium Chloride 0.9% 1,000 ML IV SCH (05:41)
[2018-11-06] MEDS: HumaLOG 300 UNITS/3 ML VIAL SC PRN (05:43)
[2018-11-06 05:52] LABS: Anion Gap 10 mmol/L (10-20); BUN (Urea Nitrogen) 19 mg/dL (8.9-20.6); Calc. Creatinine Clearance 85 mL/min (70-130); Carbon Dioxide 24 mmol/L (22-29); Chloride 96 mmol/L (98-107); Estimated GFR-MDRD 88; Glucose 434 mg/dL (70-105); Potassium 4.1 mmol/L (3.5-5.1); Sodium 126 mmol/L (136-145)
--- NOTE | 2018-11-06 06:00 | PDOC.FM ---
- Subjective Subjective: Pt says he is having withdrawals. His stomach is cramping and his legs hurt. He got I&D of his abscess on his neck and axilla. He says he is eating well. He had a BM this morning. He denies chest pain. - Objective MAR Reviewed: Yes Vital Signs & Weight: Vital Signs (12 hours) Temp Pulse Resp BP BP Pulse Ox 11/06/18 04:00 97.3 F L 83 16 147/99 H 147/99 H 99 11/05/18 20:00 98.3 F 101 H 18 131/82 131/82 98 Weight Admit Weight 57.334 kg Weight 57.833 kg I&O: 11/04/18 11/05/18 11/06/18 06:59 06:59 06:59 Intake Total 5175 2762 2795 Output Total 1850 2675 2200 Balance 3325 87 595 Result Diagrams: 11/06/18 04:48 11/06/18 04:48 Phys Exam - Physical Examination Constitutional: NAD HEENT: moist MMs, oral pharynx no lesions Neck: supple, full ROM Respiratory: clear to auscultation bilateral Cardiovascular: RRR Systolic murmur loudest in mitral region Gastrointestinal: soft, non-tender Musculoskeletal: no edema, pulses present Neurological: moves all 4 limbs Psychiatric: normal affect Deviation from normal: Abscesses present on arms, back of neck, and left axilla. Dx/Plan (1) Abscess Code(s): L02.91 - CUTANEOUS ABSCESS, UNSPECIFIED Status: Acute (2) Methamphetamine abuse Code(s): F15.10 - OTHER STIMULANT ABUSE, UNCOMPLICATED Status: Acute (3) Balanitis Code(s): N48.1 - BALANITIS Status: Acute (4) DM2 (diabetes mellitus, type 2) Status: Chronic - Plan Plan: 38 yo male admitted for possible DKA. 1. Hyperglycemia * initial bG of 600 * Insulin regimen: 60 U lantus in AM, 3 U humalog WM * Hypoglycemia protocol and sliding scale ordered * A1C: 13.9 * NS at 125 mL/hr * BMP checks q4h x3 to monitor electrolytes and potassium 2. Multiple soft tissue abscesses, penile abscess, balinitis denies sharing needles but reuses his own after washing w/ bleach * Blood cx pending * US of abscess of dorsal neck & L axillary abscess: shows no fluid collection to be drained. Cellulitis present * Vancomycin * HIV, Hep B, RPR: Neg * Hep A Ab: Positive * Hep C RNA, G/C: pending * Consulted Surgery yesterday to manuel the abscesses, should be done today. * For penile abscess, Urology consult for balinitis and dorsal penis abscess, appreciate Recs. Want to check G/C PCR due to incomplete treatment for previous diagnosis. * Toradol IV for pain 3. New murmur in setting of IV drug use Systolic murmur 3 * Echo: EF 50-55% with Mild mitral, aortic, and tricuspid regurge with increased PAP and thickened AV leaflet. * Will continue current Abx regimen * Consider further endocarditis workup due to risk factors 4. Methamphetamine usage & meth-induced psychosis Visual and Auditory Hallucinations * Monitor on telemetry for withdrawal symptoms * [facility] consult when pt medically stable * Ativan prn 5. Possible Alcohol Abuse Pt expressed to nurse he gets seizures from alcohol withdrawal * ROSHNI protocol 6. Hx of cirrhosis and Hep C s/p treatment: * Monitoring 7. Balanitis * Nystatin ordered per urology recs * Diflucan ordered * UCx: Group A Strep <10,000 cfu, so likely contaminate. 8. STI positive: Chylmdia * Neg: RPR, HIV, Gonorrhea * Will treat with Azithro and Ceftriaxone Condition: Stable Lines: Peripheral Diet: NPO for abscesses Code Status: full VTE PPx: not given due to concern for cirrhosis and liver function, hx of hematemesis Dispo: Inpt, pending cultures, glucose management, and glucose control. Addendum - Attending - Attending Attestation Date/Time: 11/06/18 6752 I personally evaluated the patient and discussed the management with Dr. Mariano. I agree with the History, Examination, Assessment and Plan documented above with any addition or exceptions noted below. Patient seen and examined and desiring to leave AMA. He denies any SI, and feels his son is someone he wants to live for. He does endorse noncommand AH that have been longstanding, and per discussion with common law only developed after beginning methamphetamine use. He has taken "too much" methamphetamine before but it is not clear that he has ever attempted self-harm during my interviews. While discussing his case with the residents he decided to leave and voiced understanding that his wounds would likely end up infected, are only partially treated, and that his sugars are out of control and would likely result in worsening infection. He also declined his ECG. He tells me that he understands that he will likely be back and lack of treatment could end up in debility or . he desire to go home is firm and consistent and he seems to have capacity to make decisions.
[2018-11-06] MEDS: HumaLOG 300 UNITS/3 ML VIAL SC SCH (07:37)
[2018-11-06] MEDS ORDERED: Insulin Glargine 60 UNITS in Pre-Filled Syringe 1 EACH SC SCH (09:00)
[2018-11-06] MEDS ORDERED: Enoxaparin Sodium 40 MG/0.4 ML SYRINGE SC SCH (09:00)
[2018-11-06] MEDS: Senokot S 8.6-50 MG TAB PO SCH (09:31)
[2018-11-06] MEDS: Multivitamin W/ Minerals 1 TAB PO SCH (09:31)
[2018-11-06] MEDS: Thiamine 100 MG TAB PO SCH (09:32)
[2018-11-06] MEDS: Fluconazole 100 MG TAB PO SCH (09:32)
[2018-11-06] MEDS: Famotidine 20 MG TAB PO SCH (09:32)
[2018-11-06] MEDS: Magnesium Oxide 400 MG TAB PO SCH (09:32)
[2018-11-06] MEDS: Folic Acid 1 MG TAB PO SCH (09:32)
[2018-11-06] MEDS: Polyethylene Glycol 3350 17 GM Packet PO SCH (09:36)
--- NOTE | 2018-11-06 11:11 | OP ---
DATE OF PROCEDURE: 11/05/2018 PREOPERATIVE DIAGNOSES: Chronic neck abscess, left axillary abscess. PROCEDURE PERFORMED: Incision and drainage. INDICATIONS: A 38-year-old IV drug abuser, who has developed multiple abscesses. FINDINGS: The neck was a chronic multilocular abscess with very small purulent pockets. The axillary abscess was unilocular abscess filled with creamy purulent fluid. DESCRIPTION OF PROCEDURE: After informed consent was obtained, the patient was taken to the operating room and given general endotracheal anesthesia. He was placed in the right lateral decubitus position. His neck and axilla were prepped and draped in usual fashion. Started with the neck, an elliptical incision was performed that was really not one cavity and not a lot of purulent fluid. There were small 2 to 3 mm cavities that were all broken up with hemostats. This was cultured. I went ahead and sent the skin with a necrotic ulceration on it also as a specimen. Hemostasis achieved with electrocautery. The wound was thoroughly irrigated, packed open with a wide mesh gauze. Then went to the axilla, an elliptical incision was performed, this one had creamy purulent fluid. This was sent for culture. Hemostasis was achieved with electrocautery. The wound was thoroughly irrigated, packed with sterile gauze, sterile bandage applied. The patient tolerated the procedure well, transferred to Recovery in good condition. Sponge and needle count verified correct x2. Job ID: [id number]
[2018-11-06 11:23] VITALS: BP 119/87; TEMP 97.6
--- NOTE | 2018-11-07 10:59 | DIS ---
DATE OF ADMISSION: 11/03/2018 DATE OF DISCHARGE: 11/06/2018 RESIDENT: Rodrigo Mariano MD ADMITTING ATTENDING: Lauren Rod MD ATTENDING PRESENT @ AMA: Jesus Long MD CONSULTS: 1. Von Poole MD, 11/03. 2. Peter Warner MD, Surgery, 11/04. PROCEDURES PERFORMED: * Chest x-ray 11/02, showed no acute cardiopulmonary findings. * Echo 11/03, showed EF of 50% to 55%. Mild mitral aortic and tricuspid regurg withincreased pulmonary artery pressure and taken AV leaflet. * Ultrasound soft tissue done on 11/03, showed no fluid to drain. * I and D performed on 11/[address] Warner of dorsal neck abscess and left axillary abscess. PRIMARY DIAGNOSES: 1. Hyperglycemia, multiple soft tissue abscesses as well as penile abscess and balanitis. 2. New murmur in the setting of IV drug use. SECONDARY DIAGNOSES: 1. 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 2. History of cirrhosis and hep C, status post treatment. DISCHARGE MEDICATIONS: No medications were given because patient left AMA. DISCONTINUED MEDICATIONS: Valium, Ativan, Social Circle 5/325, Vancomycin. HISTORY OF PRESENT ILLNESS: The patient is a 38-year-old male with diabetes, neuropathy, and leg cramps, presents with several abscesses, one on his neck, one in left armpit, several on his penis. Two weeks ago, the lesion in his left axilla appeared; two days ago, abscess on his dorsal aspect of his neck appeared; and two months ago, lesion on his penis appeared. He was told by Maurilio, he had chlamydia and was treated at that time. He currently is using his insulin needles after cleaning with bleach. Reports he was in nursing home for five months and was released in March, has tattoo some of which were done in nursing home. Reports he has not been on insulin for three months, because he does not care anymore and his last A1c was 12.6 before admission. During the hospital stay, it was rechecked and found to be 13.9. Regarding penile lesion, he reports he was to be scheduled for a procedure because he cannot retract his foreskin. In the ED, he was given 2 L of fluid and 10 units of insulin IV in the ED. 1. Hyperglycemia. * Initial blood glucose 600. * Insulin regimen 60 units of Lantus at 8:00 a.m. and 3 units of Humalog with meals. * Hyperglycemia protocol and sliding scale ordered. * A1c of 13.9. * Normal saline at 125 mL. 2. Multiple soft tissue abscesses, penile abscess, and balanitis. * Denies sharing needles, but reuses soon after washing with bleach. * Blood culture are negative at 48 hours. * Wound cultures were positive for Staph aureus from both the axilla and the neck. * Urine culture shows strep agalactiae group B with less than 10,000 colony- forming units. * Ultrasound of abscesses as resulted above. * HIV, hep B, and RPR are negative. * Hep A antibody positive. * Hep C RNA resulted and shows he has had treatment. * Gonorrhea negative. * Chlamydia is positive, intended to treat on 11/06 with azithromycin and ceftriaxone to prevent resistance, but patient left AMA before able to receive. * Surgery lanced abscesses on 11/05. 3. New murmur in setting of IV drug use. * Systolic murmur 04/26. * Echo as resulted above. * Would consider further endocarditis workup if patient did not leave AMA. * Methamphetamine usage of meth induced psychosis. * Visual and auditory hallucinations. * MHMR should be consulted, but patient left AMA. * Ativan was given p.r.n. for agitation. 4. Possible alcohol abuse. * The patient expressed he gets seizures from alcohol withdrawal. * ASE protocol. 5. History of cirrhosis and hep C, status post treatment. * Resolved. 6. Balanitis. * Urology determined penile abscess did not need I&D and balanitis should be treated with nystatin. We also added on Diflucan, but he did not received due to leveling AMA. He was receiving Toradol IV for pain. On 11/06, the patient was seen in the morning on pre rounds. He was stable and in no acute distress. During rounds, the primary team got a call that the patient was trying to leave AMA. The team went to his room and discussed the risks of leaving with open wounds and without his blood sugars being under control, and the patient refused further treatment. This was also discussed with patient's , who would like him to have further treatment, but she was unable to get the patient to stay and patient wanted to leave AMA. The patient was found to be in his right state of mind and all the risks were discussed with him of leaving AMA, yet he still chose to leave AMA. AMA paperwork was signed by him and his on 11/06 and he left AMA. Job ID: [id number] MTDD
[2018-11-08 18:09] LABS: Hepatitis E Virus IgG ABS Negative (Negative)
== END 2018-11-06 10:32 | disposition left against medical advice (07) | DRG 638 ==
LOC: ERS 22:32 → 2SW 11-03 01:21 → OBSVTOIN 11-03 01:21 → 2NO 11-03 10:33
PROVIDERS: ADMIT Student in an Organized Health Care Education/Training Program; ATTEND Student in an Organized Health Care Education/Training Program
PROC: 0H94XZZ Drainage of Neck Skin, External Approach (ICD-10-PCS; principal; 2018-11-05)
PROC: 0X953ZZ Drainage of Left Axilla, Percutaneous Approach (ICD-10-PCS; 2018-11-05)
DX: E10.65 Type 1 diabetes mellitus with hyperglycemia (principal); L03.221 Cellulitis of neck; L02.412 Cutaneous abscess of left axilla; L03.112 Cellulitis of left axilla; R44.0 Auditory hallucinations; L02.11 Cutaneous abscess of neck; N48.1 Balanitis; R01.1 Cardiac murmur, unspecified; F15.159 Other stimulant abuse with stimulant-induced psychotic disorder, unspecified; B19.20 Unspecified viral hepatitis C without hepatic coma; F41.9 Anxiety disorder, unspecified; F32.9 Major depressive disorder, single episode, unspecified; I10 Essential (primary) hypertension; A56.8 Sexually transmitted chlamydial infection of other sites; R44.1 Visual hallucinations; F10.10 Alcohol abuse, uncomplicated; B95.61 Methicillin susceptible Staphylococcus aureus infection as the cause of diseases classified elsewhere
CPT/HCPCS: 36415; 36416; 71046; 76536; 76999; 80048; 80053; 80202; 80306; 81003; 82010; 83036; 83605; 84145; 85025; 86480; 86704; 86706; 86708; 86780; 86790; 86803; 87070; 87077; 87086; 87116; 87186; 87205; 87206; 87340; 87389; 87491; 87522; 87591; 93306; 96361; 96374; 96375; J1100; J1650; J1815; J1885; J2001; J2060; J2405; J2704; J3010; J3370; J3411; J3475; J3490; J7050; S0028

== ENCOUNTER 2019-02-14 21:19 | Inpatient (IN) | payer SELFPAY ==
[2019-02-14 22:02] LABS: #Basophils 0.1 thou/uL (0.0-0.2); #Lymphocytes 1.6 thou/uL (1.20-3.40); #Monocytes 0.4 thou/uL (0.11-0.59); #Neutrophils 4.7 thou/uL (1.40-6.50); %Basophils 0.8 % (0.0-1.0); %Eosinophils 0.3 % (0.0-10.0); %Lymphocytes 24.3 % (21.0-51.0); %Monocytes 5.4 % (0.0-10.0); %Neutrophils 69.2 % (42.0-75.0); Mean Corpuscular HGB CONC 34.9 g/dL (32.0-36.0); Mean Corpuscular Hemoglobin 30.6 pg (27.0-31.0); Mean Corpuscular Volume 87.5 fL (78.0-98.0); Mean Platelet Volume 6.3 fL (7.4-10.4); Platelet Count 310 thou/uL (130-400); RBC Distribution Width 12.1 % (11.5-14.5); Red Blood Cell (RBC) Count 5.24 mill/uL (4.70-6.10); White Blood Cell (WBC) Count 6.7 thou/uL (4.8-10.8)
[2019-02-14 22:24] LABS: ALT (SGPT) 15 U/L (8-55); AST (SGOT) 15 U/L (5-34); Albumin 4.4 g/dL (3.5-5.0); Alkaline Phosphatase 179 U/L (40-110); Anion Gap 19 mmol/L (10-20); BUN (Urea Nitrogen) 7 mg/dL (8.9-20.6); Bilirubin, Total 0.7 mg/dL (0.2-1.2); Calc. Creatinine Clearance 0 mL/min (70-130); Calcium 9.7 mg/dL (7.8-10.44); Carbon Dioxide 24 mmol/L (22-29); Chloride 87 mmol/L (98-107); Estimated GFR-MDRD 61; Globulin 5.1 g/dL (2.4-3.5); Magnesium 1.8 mg/dL (1.6-2.6); Potassium 3.7 mmol/L (3.5-5.1); Protein, Total 9.5 g/dL (6.0-8.3); Sodium 126 mmol/L (136-145)
[2019-02-14 22:29] LABS: Glucose 800 mg/dL (70-105)
[2019-02-14 22:36] LABS: Acetaminophen Less than 6.0 mcg/mL (10.0-30.0); Alcohol Less than 10 mg/dL (Less than 10); Salicylate Less than 8.0 mg/dL (15.0-30.0)
[2019-02-14 22:53] LABS: Bilirubin Negative (Negative); Blood, Urine Negative (Negative); Clarity Clear (Clear); Glucose, Urine (Dipstick) Greater than 1000 mg/dL (Negative); Leukocyte Negative Leu/uL (Negative); Nitrite Negative (Negative); Protein, Urine (Dipstick) Negative (Neg-Trace); Urobilinogen Normal mg/dL (Less than 2)
[2019-02-14] MEDS ORDERED: Insulin Regular 100 units/100 ml in NS IVPB SCH (23:00)
[2019-02-14] MEDS ORDERED: NS 0.9% w/ 20 MEQ KCL 1,000 ML IV SCH (23:00)
[2019-02-14] MEDS ORDERED: cloNIDine 0.1 MG TAB ONE (23:02)
[2019-02-14] MEDS ORDERED: cefTRIAXone\\ROCEPHIN 2 GM VIAL ONE (23:02)
[2019-02-14 23:13] LABS: Amphetamine Detected (NotDetected); Barbiturates Screen Not Detected (NotDetected); Benzodiazepine Screen Not Detected (NotDetected); Cocaine Metabolite Screen Not Detected (NotDetected); Medtox Control Line Valid? VALID (VALID); Medtox Reader # READER 4; Methadone Not Detected (NotDetected); Methamphetamine Detected (NotDetected); Opiate Screen Not Detected (NotDetected); Oxycodone Screen Not Detected (NotDetected); Phencyclidine (PCP) Not Detected (NotDetected); THC/Cannabinoid Screen Detected (NotDetected); Tricyclic Screen Not Detected (NotDetected)
[2019-02-15] MEDS ORDERED: Dextrose 50% Abboject 50 ML SYRINGE SLOW IVP PRN (00:05)
[2019-02-15] MEDS ORDERED: Dextrose 5% in Water 1,000 ML IV PRN (00:05)
[2019-02-15] MEDS ORDERED: HUMULIN R 100 UNITS in Sodium Chloride 0.9% 100 ML IVPB SCH (00:15)
--- NOTE | 2019-02-15 01:10 | HP ---
CHIEF COMPLAINT: Suicidal ideation. HISTORY OF PRESENT ILLNESS: This patient is a 38-year-old male. He was here in October. At that time, he had severe hyperglycemia, had multiple skin abscesses which were drained and grew MRSA. He had a murmur auscultated at that time with normal echocardiogram and was having some hallucinations and the plan was for [facility] to follow up the patient. The patient has a longstanding methamphetamine abuse. However, he left that hospitalization against medical advice. He states since that time, he has had no insulin at all. He has been continuing to use daily methamphetamine via injection. He essentially is trying to find a vein for the most part, but occasionally recognizes that he used outside the vein, but continues to inject. States he has essentially been trying to kill himself by using the methamphetamine, but it has not worked. Today, the patient reports that he was brought here by his father, otherwise he would not have come. The primary reason for his father was concerned is because he stated intentions of killing himself. The patient reports that he has been unable to quit the methamphetamine that he did go to rehab, but could not stay because he was diabetic. States he is having daily seizures because of the hyperglycemia and continues to have some auditory hallucinations even when he is not acutely intoxicated with methamphetamine. He also reports that he continues to have multiple skin abscesses, which are painful for him in general. He also specifically requests to be able to speak to [facility] on this occasion. He does admit to having severe polyuria and polydipsia. He had some phimosis previously. On his admission in October, he was seen by Dr. Poole during that time, and the recommendation was eventually for the patient to consider circumcision once he had control over his blood sugars and was off the drugs. However, those things have not occurred. He continues to have some irritation with balanitis and at times, has some issues with voiding related to that, but not routinely. REVIEW OF SYSTEMS: All other systems reviewed and all pertinent positives and negatives noted in the history of present illness. He does report that he continues to try to eat, but mostly is just snacking a little bit throughout the day. PAST MEDICAL HISTORY: Notable for hepatitis C in 2010, status post treatment; history of seizures related to his diabetes, appears to be type 2 diabetes at this point; history of cirrhosis; anxiety; depression; hypertension; hypothyroidism; MRSA abscesses drained by Surgery in his last admission; phimosis; and a previously diagnosed murmur (not auscultated on exam today). PAST SURGICAL HISTORY: Hernia repair, status post I and D of several abscesses, cholecystectomy, liver biopsy. FAMILY HISTORY: Grandparents had diabetes, cirrhosis, heart attacks. Mom has diabetes. Has a daughter, who is a diabetic. SOCIAL HISTORY: The patient is a daily meth abuser, uses marijuana as well, and has history of significant alcohol abuse. He is . He will be a full code as he is reporting some hallucinations. ALLERGIES: CODEINE, ACETAMINOPHEN, CONTRAST MEDIA, SHELLFISH. CURRENT MEDICATIONS: None. PHYSICAL EXAMINATION: VITAL SIGNS: BP 127/91, pulse 90, respirations 18, temperature is 98.1, O2 saturation 100% on room air. GENERAL APPEARANCE: Age-appropriate male. He is in no distress, although, he becomes a bit emotional and tearful at times when discussing his situation. He is very thin. He is pleasant and cooperative. HEENT: HALI. Has no OP lesions. Very dry oral mucosa. NECK: Supple and symmetric. HEART: Regular with no murmurs auscultated. No gallops, no rubs. LUNGS: Clear to auscultation bilaterally with good chest wall expansion and air exchange. ABDOMEN: Soft, nontender, and nondistended. Positive bowel sounds. No masses and no organomegaly. EXTREMITIES: No cyanosis, clubbing, or edema. SKIN: Reveals open lesion on the left distal antecubital area, draining serous fluid. There is another scabbed lesion on the left thumb. There are multiple furuncles at the posterior hairline and he also has couple of furuncle-type lesions on the penis as well as some incipient phimosis without significant erythema and only mild edema. No drainage. PSYCHIATRIC: The patient has normal behavior. Again, he is emotional and tearful at times, but for the most part, generally normal affect. NEUROLOGIC: Cranial nerves intact. Cognitively intact. Moves all extremities spontaneously with no focal deficits. LABORATORY DATA: White count 6.7, hemoglobin 16.0, platelets 310. Sodium 126, potassium 3.7, chloride 87, BUN 7, creatinine is 1.31, GFR 61, glucose 800, serum osmolality 315. Lactic acid 5.5. Magnesium 1.8. AST 15, ALT 15, alkaline phosphatase 179. Total protein is 9.5, albumin 4.4. Urinalysis shows greater than 1000 glucose. Drug screen positive for amphetamine, methamphetamine, and cannabinoids. Alcohol is less than 10. Beta-hydroxybutyrate is 0.1. IMPRESSION AND PLAN: 1. Hyperglycemic hyperosmolar syndrome. The patient has essentially untreated diabetes for the last 3 months with blood sugars over 800. He has been getting started on an insulin drip now. We will aggressively hydrate, give him another bolus of fluids and start IV fluid maintenance. Accu-Cheks q.1 hour and watch him in the IMCU. 2. Methicillin-resistant Staphylococcus aureus with multiple furuncles. Continue with contact isolation. He received vancomycin and Rocephin in the ER. On reviewing his previous cultures, we will just continue with vancomycin for now. 3. Suicidal ideation. The patient reported something similar in his last admission in October. States he still would like to kill himself. We will need to see MHMR prior to discharge. 4. Methamphetamine abuse, long-standing. The patient reports the desire to discontinue, may need some help with that prior to discharge as well. 5. Auditory hallucinations, again to see MR. 6. Reported seizures. He has reported these in the past. Hopefully, if we can keep his blood sugars controlled and keep him well hydrated, we can avoid those. We will order p.r.n. should those occur. 7. Phimosis. Does not appear to be acutely active other than some chronic phimosis. So far, appears to continue to be able to void adequately. 8. Balanitis. Cannot retract the foreskin significantly to further assess and does not appear to have any significant drainage or significant tenderness in that area. Most importantly, I think needed control of blood sugars to help resolve this. 9. History of murmur. There is no murmur auscultated on my exam today. We will need to follow with serial exams. Previous echo was essentially unremarkable. There was some concern for endocarditis. Suspect if he had that 3 months ago, he would have been in much worse condition by now. 10. Hyponatremia. Likely pseudohyponatremia. Appears chronic. Should improve with control of the blood sugars. Job ID: [id number] [facility]
[2019-02-15 01:46] LABS: Lactic Acid 3.2 mmol/L (0.5-2.2)
[2019-02-15] MEDS: Sodium Chloride 0.9% 1,000 ML IV SCH ×4 (02:41→20:26)
[2019-02-15 05:52] LABS: #Eosinphils 0.1 thou/uL (0.0-0.7); #Lymphocytes 2.3 thou/uL (1.20-3.40); #Monocytes 0.6 thou/uL (0.11-0.59); #Neutrophils 4.5 thou/uL (1.40-6.50); %Basophils 0.4 % (0.0-1.0); %Eosinophils 1.1 % (0.0-10.0); %Lymphocytes 30.3 % (21.0-51.0); %Monocytes 8.3 % (0.0-10.0); %Neutrophils 59.8 % (42.0-75.0); Hemoglobin 12.8 g/dL (14.0-18.0); Mean Corpuscular HGB CONC 35.6 g/dL (32.0-36.0); Mean Corpuscular Hemoglobin 30.4 pg (27.0-31.0); Mean Corpuscular Volume 85.5 fL (78.0-98.0); Mean Platelet Volume 5.7 fL (7.4-10.4); Platelet Count 266 thou/uL (130-400); RBC Distribution Width 11.9 % (11.5-14.5); White Blood Cell (WBC) Count 7.4 thou/uL (4.8-10.8)
[2019-02-15] MEDS ORDERED: Insulin Glargine 20 UNITS in Pre-Filled Syringe 1 EACH SC SCH (06:00)
[2019-02-15 06:18] LABS: ALT (SGPT) 9 U/L (8-55); AST (SGOT) 10 U/L (5-34); Albumin 3.2 g/dL (3.5-5.0); Alkaline Phosphatase 108 U/L (40-110); Anion Gap 9 mmol/L (10-20); BUN (Urea Nitrogen) 8 mg/dL (8.9-20.6); Bilirubin, Total 0.4 mg/dL (0.2-1.2); Calc. Creatinine Clearance 116 mL/min (70-130); Calcium 8.3 mg/dL (7.8-10.44); Carbon Dioxide 26 mmol/L (22-29); Chloride 101 mmol/L (98-107); Estimated GFR-MDRD Greater than 90; Globulin 3.6 g/dL (2.4-3.5); Glucose 234 mg/dL (70-105); Potassium 3.4 mmol/L (3.5-5.1); Protein, Total 6.8 g/dL (6.0-8.3); Sodium 133 mmol/L (136-145)
[2019-02-15] MEDS: Famotidine 20 MG TAB PO SCH ×2 (08:28→20:27)
[2019-02-15] MEDS: HumaLOG 300 UNITS/3 ML VIAL SC PRN ×3 (08:28→16:18)
[2019-02-15] MEDS: Enoxaparin Sodium 40 MG/0.4 ML SYRINGE SC SCH (08:28)
[2019-02-15] MEDS: Vancomycin HCl 750 MG in Sodium Chloride 0.9% 250 ML 250 ML IVPB SCH ×2 (08:46→20:27)
[2019-02-15 09:48] LABS: Base Excess-Venous 2.8 mmol/L (-2.0 to 3.0); Bicarbonate (HCO3v) 27.5 mmol/L (22.0-28.0); CO2 Tension (PvCO2) 41.4 mmHg (40.0-50.0); Chloride 91 mmol/L (98-107); Hemoglobin - Calc 14.9 g/dL (14.0-18.0); Potassium 3.7 mmol/L (3.5-5.1); Sodium 131 mmol/L (138-145); T. Carbon Dioxide 28.8 mmol/L (22.0-28.0); vO2 Saturation-calc 82.4 % (60.0-85.0)
[2019-02-15 14:55] LABS: Anion Gap 11 mmol/L (10-20); BUN (Urea Nitrogen) 7 mg/dL (8.9-20.6); Calc. Creatinine Clearance 118 mL/min (70-130); Calcium 8.4 mg/dL (7.8-10.44); Carbon Dioxide 24 mmol/L (22-29); Chloride 101 mmol/L (98-107); Estimated GFR-MDRD Greater than 90; Glucose 248 mg/dL (70-105); Potassium 3.8 mmol/L (3.5-5.1); Sodium 132 mmol/L (136-145)
--- NOTE | 2019-02-15 18:59 | PDOC.HOSPP ---
- Subjective Encounter Date: 02/15/19 Encounter Time: 11:56 Subjective: 38 y/o male with uncontrolled DM, IVDU and others admitted after suicide attempt reported to be by hanging. Patient reportedly has been injecting meth. Feeling better. Still wants to kill himself. Reportedly broke with spouse recently. - Objective Vital Signs & Weight: Vital Signs (12 hours) Temp Pulse Resp BP Pulse Ox 02/15/19 16:00 97.6 F 02/15/19 11:00 97 F L 02/15/19 08:00 97 F L 81 16 125/88 96 02/15/19 07:56 97 02/15/19 07:00 97 F L Weight Admit Weight 125 lb 10.616 oz Weight 125 lb 10.616 oz Most Recent Monitor Data Heart Rate from ECG 89 NIBP 124/86 NIBP BP-Mean 98 Respiration from ECG 18 SpO2 99 I&O: 02/14/19 02/15/19 02/16/19 06:59 06:59 06:59 Intake Total 452.7 2100 Output Total 3350 Balance 452.7 -1250 Result Diagrams: 02/15/19 05:24 02/15/19 14:22 Additional Labs: Accuchecks 02/15/19 02/15/19 02/15/19 16:06 11:20 07:38 POC Glucose 263 H 325 H 235 H 02/15/19 02/15/19 02/15/19 05:34 02:40 01:40 POC Glucose 230 H 224 H 226 H 02/15/19 02/14/19 00:30 21:39 POC Glucose 224 H Greater than 550 H* Hospitalist ROS - Medication Medications: Active Medications Generic Name Dose Route Start Last Admin Trade Name Freq PRN Reason Stop Dose Admin Enoxaparin Sodium 40 mg 02/15/19 09:00 02/15/19 08:28 Lovenox SC 40 mg 0900 PAULINO Administration Famotidine 20 mg 02/15/19 09:00 02/15/19 08:28 Pepcid PO 20 mg BID PAULINO Administration Vancomycin HCl 750 mg/ Sodium 250 mls @ 250 mls/hr 02/15/19 09:00 02/15/19 08 :46 Chloride IVPB 250 mls Q12HR PAULINO Administration Sodium Chloride 1,000 mls @ 150 mls/hr 02/15/19 12:45 02/15/19 13:25 Normal Saline 0.9% IV Not Given .Q6H40M PAULINO Insulin Human Lispro 0 units 02/15/19 08:18 02/15/19 16:18 Humalog SC 4 unit .MODERATE SLIDING SC PRN Administration MODERATE SLIDING SCALE Protocol Sodium Chloride 10 ml 02/15/19 09:00 02/15/19 08:28 Flush - Normal Saline IVF 10 ml Q12HR PAULINO Administration - Exam General Appearance: awake alert Eye: anicteric sclera ENT: normocephalic atraumatic Neck: no JVD Heart: RRR Respiratory: no wheezes, no ronchi, normal chest expansion, no tachypnea Gastrointestinal: soft, non-tender, non-distended, normal bowel sounds Extremities: no edema Extremities - other findings: scattered nodules on the forearms. Skin - other findings: some skin breakdown/ulcer noted on the left forearm and pennis Neurological: cranial nerve grossly intact, no focal deficits Psychiatric: A&O x 3 Hosp A/P (1) Diabetic hyperosmolar non-ketotic state Code(s): E11.00 - TYPE 2 DIAB W HYPROSM W/O NONKET HYPRGLY-HYPROS COMA ([facility]) Status: Acute (2) Hyponatremia Code(s): E87.1 - HYPO-OSMOLALITY AND HYPONATREMIA Status: Acute (3) Suicide attempt Status: Acute (4) Abscess of multiple sites Code(s): L02.91 - CUTANEOUS ABSCESS, UNSPECIFIED Status: Acute (5) Methamphetamine abuse Code(s): F15.10 - OTHER STIMULANT ABUSE, UNCOMPLICATED Status: Acute (6) DM2 (diabetes mellitus, type 2) Status: Chronic (7) Polysubstance abuse Code(s): F19.10 - OTHER PSYCHOACTIVE SUBSTANCE ABUSE, UNCOMPLICATED Status: Chronic (8) Hypokalemia Code(s): E87.6 - HYPOKALEMIA Status: Acute (9) GAURANG (acute kidney injury) Code(s): N17.9 - ACUTE KIDNEY FAILURE, UNSPECIFIED Status: Resolved - Plan Increase IVF rate. increase lantus to get better glycemic control. Suicide precaution to continue. Get TTE. monitor electrolytes and replete as needed.
[2019-02-15] MEDS ORDERED: Insulin Glargine 10 UNITS in Pre-Filled Syringe 1 EACH SC SCH (19:00)
[2019-02-15] MEDS ORDERED: diphenhydrAMINE 50 MG CAP PO SCH (21:45)
[2019-02-15] MEDS ORDERED: Ondansetron PF 4 MG/2 ML Vial SLOW IVP PRN (22:08)
[2019-02-16] MEDS: HumaLOG 300 UNITS/3 ML VIAL SC PRN ×4 (00:06→17:25)
[2019-02-16] MEDS: Sodium Chloride 0.9% 1,000 ML IV SCH ×3 (03:08→16:26)
[2019-02-16] MEDS: Enoxaparin Sodium 40 MG/0.4 ML SYRINGE SC SCH (07:55)
[2019-02-16] MEDS: Famotidine 20 MG TAB PO SCH ×2 (07:55→21:36)
[2019-02-16 08:35] LABS: Vancomycin, Trough 2.6 ug/mL
[2019-02-16] MEDS: Vancomycin HCl 750 MG in Sodium Chloride 0.9% 250 ML 250 ML IVPB SCH (08:41)
[2019-02-16] MEDS ORDERED: Insulin Glargine 30 UNITS in Pre-Filled Syringe 1 EACH SC SCH (09:00)
[2019-02-16 09:56] LABS: Mean Corpuscular HGB CONC 34.9 g/dL (32.0-36.0); Mean Corpuscular Hemoglobin 30.5 pg (27.0-31.0); Mean Corpuscular Volume 87.2 fL (78.0-98.0); Mean Platelet Volume 6.1 fL (7.4-10.4); Platelet Count 236 thou/uL (130-400); RBC Distribution Width 12.3 % (11.5-14.5); White Blood Cell (WBC) Count 6.4 thou/uL (4.8-10.8)
[2019-02-16 10:26] LABS: Albumin 3.1 g/dL (3.5-5.0); Anion Gap 14 mmol/L (10-20); BUN (Urea Nitrogen) 9 mg/dL (8.9-20.6); BUN/Creatinine Ratio 13.04; Calc. Creatinine Clearance 116 mL/min (70-130); Calcium 8.2 mg/dL (7.8-10.44); Carbon Dioxide 18 mmol/L (22-29); Chloride 102 mmol/L (98-107); Estimated GFR-MDRD Greater than 90; Glucose 343 mg/dL (70-105); Magnesium 1.6 mg/dL (1.6-2.6); Phosphorus 3.1 mg/dL (2.3-4.7); Potassium 4.1 mmol/L (3.5-5.1); Sodium 130 mmol/L (136-145)
[2019-02-16] MEDS: Vancomycin HCl 1 GM in Premix Bag 1 BAG IVPB SCH ×2 (14:24→21:37)
[2019-02-16 15:20] VITALS: BMI 19.5
--- NOTE | 2019-02-16 17:07 | PDOC.HOSPP ---
- Subjective Encounter Date: 02/16/19 Encounter Time: 13:06 Subjective: 38 y/o male with uncontrolled DM, IVDU and others admitted after suicide attempt reportedly by hanging. Patient also reportedly has been injecting methamphetamine. Feeling better. Complains of being jittery. No fever, nausea or vomiting. - Objective Vital Signs & Weight: Vital Signs (12 hours) Temp Pulse Resp BP Pulse Ox 02/16/19 14:30 97.5 F L 86 18 127/85 99 02/16/19 13:57 98.5 F 02/16/19 07:40 100 Weight Admit Weight 125 lb 10.616 oz Weight 125 lb Most Recent Monitor Data Heart Rate from ECG 106 NIBP 129/85 NIBP BP-Mean 99 Respiration from ECG 16 SpO2 99 I&O: 02/15/19 02/16/19 02/17/19 06:59 06:59 06:59 Intake Total 452.7 6335 480 Output Total 4900 2600 Balance 452.7 1435 -2120 Result Diagrams: 02/16/19 09:35 02/16/19 09:35 Additional Labs: Accuchecks 02/16/19 02/16/19 02/16/19 11:23 04:20 00:07 POC Glucose 436 H 232 H 283 H 02/15/19 02/15/19 20:28 04:13 POC Glucose 286 H 224 H Hospitalist ROS - Medication Medications: Active Medications Generic Name Dose Route Start Last Admin Trade Name Freq PRN Reason Stop Dose Admin Enoxaparin Sodium 40 mg 02/15/19 09:00 02/16/19 07:55 Lovenox SC 40 mg 0900 PAULINO Administration Famotidine 20 mg 02/15/19 09:00 02/16/19 07:55 Pepcid PO 20 mg BID PAULINO Administration Sodium Chloride 1,000 mls @ 150 mls/hr 02/15/19 12:45 02/16/19 16:26 Normal Saline 0.9% IV 1,000 mls .Q6H40M PAULINO Administration Vancomycin HCl 1 gm/ Device 200 mls @ 200 mls/hr 02/16/19 14:00 02/16/19 14: 24 IVPB 200 mls Q8HR PAULINO Administration Sodium Chloride 10 ml 02/15/19 09:00 02/16/19 07:55 Flush - Normal Saline IVF 10 ml Q12HR PAULINO Administration - Exam General Appearance: awake alert Eye: anicteric sclera ENT: normocephalic atraumatic Neck: symmetric, no JVD Heart: RRR Heart - other findings: soft murmur Respiratory: no wheezes, no ronchi, normal chest expansion, no tachypnea Gastrointestinal: soft, non-tender, non-distended, normal bowel sounds Extremities: no cyanosis, no edema Skin - other findings: scattered nodules with some ulceration noted on the forearms Neurological: cranial nerve grossly intact, no focal deficits Psychiatric: A&O x 3, flat affect Hosp A/P (1) Diabetic hyperosmolar non-ketotic state Code(s): E11.00 - TYPE 2 DIAB W HYPROSM W/O NONKET HYPRGLY-HYPROS COMA ([facility]) Status: Acute (2) Hyponatremia Code(s): E87.1 - HYPO-OSMOLALITY AND HYPONATREMIA Status: Acute (3) Suicide attempt Status: Acute (4) Abscess of multiple sites Code(s): L02.91 - CUTANEOUS ABSCESS, UNSPECIFIED Status: Acute (5) Methamphetamine abuse Code(s): F15.10 - OTHER STIMULANT ABUSE, UNCOMPLICATED Status: Acute (6) DM2 (diabetes mellitus, type 2) Status: Chronic (7) Polysubstance abuse Code(s): F19.10 - OTHER PSYCHOACTIVE SUBSTANCE ABUSE, UNCOMPLICATED Status: Chronic (8) Hypokalemia Code(s): E87.6 - HYPOKALEMIA Status: Acute (9) GAURANG (acute kidney injury) Code(s): N17.9 - ACUTE KIDNEY FAILURE, UNSPECIFIED Status: Resolved - Plan Get LINDA to rule in /out endocarditis Continue IVF rate. Continue IV antibiotics consult ID increase lantus to get better glycemic control. change to aggressive humalog scale Suicide precaution to continue.. monitor electrolytes and replete as needed. Transfer to medical floor.
[2019-02-16] MEDS ORDERED: Insulin Glargine 10 UNITS in Pre-Filled Syringe 1 EACH SC SCH (17:15)
[2019-02-16] MEDS: Lorazepam 1 MG TAB PO PRN (21:54)
[2019-02-17] MEDS: Sodium Chloride 0.9% 1,000 ML IV SCH ×3 (02:44→11:05)
[2019-02-17] MEDS: Vancomycin HCl 1 GM in Premix Bag 1 BAG IVPB SCH (06:07)
[2019-02-17] MEDS: HumaLOG 300 UNITS/3 ML VIAL SC PRN ×4 (06:09→20:40)
[2019-02-17] MEDS ORDERED: Clopidogrel Bisulfate 75 MG TAB ONE (06:28)
[2019-02-17] MEDS: Famotidine 20 MG TAB PO SCH ×2 (08:21→20:40)
[2019-02-17] MEDS: Enoxaparin Sodium 40 MG/0.4 ML SYRINGE SC SCH (08:21)
[2019-02-17] MEDS ORDERED: Insulin Glargine 40 UNITS in Pre-Filled Syringe 1 EACH SC SCH (09:00)
[2019-02-17 10:30] LABS: Albumin 3.2 g/dL (3.5-5.0); Anion Gap 12 mmol/L (10-20); BUN (Urea Nitrogen) 11 mg/dL (8.9-20.6); BUN/Creatinine Ratio 14.86; Calc. Creatinine Clearance 107 mL/min (70-130); Calcium 8.6 mg/dL (7.8-10.44); Carbon Dioxide 22 mmol/L (22-29); Chloride 100 mmol/L (98-107); Estimated GFR-MDRD Greater than 90; Glucose 356 mg/dL (70-105); Magnesium 1.6 mg/dL (1.6-2.6); Phosphorus 3.5 mg/dL (2.3-4.7); Potassium 4.3 mmol/L (3.5-5.1); Sodium 130 mmol/L (136-145)
[2019-02-17] MEDS: Insulin Glargine 50 UNITS in Pre-Filled Syringe 1 EACH SC SCH (11:01)
[2019-02-17] MEDS: Lorazepam 1 MG TAB PO PRN ×2 (15:51→21:56)
[2019-02-17] MEDS ORDERED: Insulin Glargine 10 UNITS in Pre-Filled Syringe 1 EACH SC SCH (16:15)
--- NOTE | 2019-02-17 16:20 | PDOC.HOSPP ---
- Subjective Encounter Date: 02/17/19 Encounter Time: 11:18 Subjective: 38 y/o male with uncontrolled DM, IVDU and others admitted after suicide attempt reportedly by hanging. Patient also reportedly has been injecting methamphetamine. No new problem. Feeling better. No fever, nausea or vomiting. - Objective Vital Signs & Weight: Vital Signs (12 hours) Temp Pulse Resp BP Pulse Ox 02/17/19 08:15 97.6 F 81 16 106/67 98 02/17/19 08:10 99 02/17/19 05:08 98.0 F 86 16 127/86 98 Weight Admit Weight 125 lb 10.616 oz Weight 125 lb Most Recent Monitor Data Heart Rate from ECG 106 NIBP 129/85 NIBP BP-Mean 99 Respiration from ECG 16 SpO2 99 I&O: 02/16/19 02/17/19 02/18/19 06:59 06:59 06:59 Intake Total 6335 2780 Output Total 4900 2600 Balance 1435 180 Result Diagrams: 02/16/19 09:35 02/17/19 09:52 Additional Labs: Accuchecks 02/17/19 02/17/19 02/17/19 15:38 11:03 05:07 POC Glucose 434 H 341 H 294 H 02/16/19 02/16/19 02/16/19 21:56 19:53 17:06 POC Glucose 294 H 282 H 352 H Hospitalist ROS - Medication Medications: Active Medications Generic Name Dose Route Start Last Admin Trade Name Freq PRN Reason Stop Dose Admin Enoxaparin Sodium 40 mg 02/15/19 09:00 02/17/19 08:21 Lovenox SC 40 mg 0900 PAULINO Administration Famotidine 20 mg 02/15/19 09:00 02/17/19 08:21 Pepcid PO 20 mg BID PAULINO Administration Sodium Chloride 1,000 mls @ 150 mls/hr 02/15/19 12:45 02/17/19 11:05 Normal Saline 0.9% IV 1,000 mls .Q6H40M PAULINO Administration Insulin Glargine 50 units/ 0.5 mls @ 0 mls/hr 02/17/19 09:00 02/17/19 11:01 Miscellaneous Medication SC Not Given QAM PAULINO As Directed Insulin Human Lispro 0 units 02/16/19 17:02 02/17/19 15:51 Humalog SC 13 unit .AGGRESSIVE SLIDING PRN Administration Aggressive Correctional Scale Lorazepam 1 mg 02/16/19 17:05 02/17/19 15:51 Ativan PO 1 mg Q6H PRN Administration Anxiety/Agitation Sodium Chloride 10 ml 02/15/19 09:00 02/17/19 12:49 Flush - Normal Saline IVF Not Given Q12HR PAULINO - Exam General Appearance: awake alert Eye: anicteric sclera ENT: normocephalic atraumatic, moist mucosa Neck: supple, symmetric, no JVD Heart: RRR Respiratory: no wheezes, no rales, no ronchi, normal chest expansion Gastrointestinal: soft, non-tender, non-distended, normal bowel sounds Extremities: no cyanosis, no edema Skin - other findings: multiple/indurations/nodules on both forearm, back of heac/neck and penis Neurological: cranial nerve grossly intact, no focal deficits Psychiatric: A&O x 3 Hosp A/P (1) Diabetic hyperosmolar non-ketotic state Code(s): E11.00 - TYPE 2 DIAB W HYPROSM W/O NONKET HYPRGLY-HYPROS COMA ([facility]) Status: Acute (2) Hyponatremia Code(s): E87.1 - HYPO-OSMOLALITY AND HYPONATREMIA Status: Acute (3) Suicide attempt Status: Acute (4) Abscess of multiple sites Code(s): L02.91 - CUTANEOUS ABSCESS, UNSPECIFIED Status: Acute (5) Methamphetamine abuse Code(s): F15.10 - OTHER STIMULANT ABUSE, UNCOMPLICATED Status: Acute (6) DM2 (diabetes mellitus, type 2) Status: Chronic (7) Polysubstance abuse Code(s): F19.10 - OTHER PSYCHOACTIVE SUBSTANCE ABUSE, UNCOMPLICATED Status: Chronic (8) Hypokalemia Code(s): E87.6 - HYPOKALEMIA Status: Acute (9) GAURANG (acute kidney injury) Code(s): N17.9 - ACUTE KIDNEY FAILURE, UNSPECIFIED Status: Resolved (10) Paraphimosis Code(s): N47.2 - PARAPHIMOSIS Status: Acute (11) Alcohol abuse Code(s): F10.10 - ALCOHOL ABUSE, UNCOMPLICATED Status: Chronic (12) Tobacco dependence Code(s): F17.200 - NICOTINE DEPENDENCE, UNSPECIFIED, UNCOMPLICATED Status: Chronic - Plan Awaiting ID and LINDA Antibiotic adjustment as per ID Discontinue IVF rate. Dietary discretion discussed with patient increase lantus to 50 daily as hyperglycemia persists iSuicide precaution to continue.. monitor electrolytes and replete as needed.
--- NOTE | 2019-02-17 18:59 | CON ---
DATE OF CONSULTATION: 02/17/2019 REASON FOR CONSULTATION: Multiple skin abscesses and other issues. HISTORY OF PRESENT ILLNESS: A 38-year-old with history of type 1 diabetes mellitus with episodes of DKA, who has chronic depression, has severe social problems with poverty and homelessness and inability to find a stable living situation, inability to obtain medication and treatment for his mental illness, who uses methamphetamine as a replacement and now he is readmitted with worsening blood sugar and skin popping with abscesses in various parts of his body. He denies headaches. No visual symptoms, sore throat, odynophagia, or dysphagia. Some back pain. No dyspnea or cough. Actually complains of abdominal pain intermittently, but not at the moment. He has chronic phimosis and sometimes has difficulty with voiding. No joint inflammatory process. He has chronic neuropathic pain in lower extremities. PAST MEDICAL HISTORY: Type 1 diabetes, hernia repair. There is a liver biopsy here, not clear what the reason for it. Cholecystectomy. History of depression. SOCIAL HISTORY: Homelessness, poverty, methamphetamine use, chronic smoking. ALLERGIES: ACETAMINOPHEN AND IODINE. CURRENT MEDICATIONS: 1. Lovenox. 2. Pepcid. 3. Glucagon. 4. Insulin. 5. Ativan. 6. Zofran. 7. Vancomycin. FAMILY HISTORY: Noncontributory. PHYSICAL EXAMINATION: VITAL SIGNS: T-max 98 to 99, blood pressure 106/67, pulse 81, respirations 16, O2 saturation 99. SKIN: Multiple areas of cutaneous abscess in the appendicular structures in the right occipital skin region and also two abscesses in the penile shaft skin. There is evidence of phimosis. He has a peripheral IV access. He is voiding in the toilet. LYMPH: No lymphadenopathy. HEENT: Ocular movements are conjugate. Pupils are 2 mm and reactive. Sclerae are white. Nasal and ear exam normal. Oral exam showed still quite a few teeth in place with marked decay and just a few stubs, most of them remaining, gum disease noted. No thrush. NECK: Supple. No jugular venous distention. LUNGS: Clear to auscultation and percussion. No back tenderness. HEART: S1 and S2. Regular rate. No S3 or S4. ABDOMEN: Soft with mild tenderness in the lower segments. No bladder distention. EXTREMITIES: No joint inflammatory activity. Pulses are 1+ in dorsalis pedis. Plantar responses are flexor. NEUROLOGICAL: Nonfocal including cognitive function. LABORATORY STUDIES: White cell count 6.7 and 6.4, hemoglobin 14, platelets 236. Sodium 130, creatinine 0.74. Liver profile normal. Albumin 3.2. There is a serology from October with negative HIV and hepatitis C was positive. He had chlamydia trachomatis detected in October. QuantiFERON was negative. The hepatitis C quantitation was not performed. The last chest x-ray from October 2018, with no acute cardiopulmonary finding identified. ASSESSMENT: 1. Homelessness, poverty. 2. Chronic depression without access to proper psychiatric treatment. 3. Inability to manage his chronic illnesses due to the above. 4. Usage of methamphetamine as replacement for psychiatric evaluation and treatment, with resulting skin abscesses. Those are likely due to methicillin-resistant Staphylococcus aureus, which is susceptible to clindamycin. DISCUSSION: The main problem of this patient is experiencing a result from his social issues, psychiatric condition and right now, he is homeless and I think he is in the process of being transferred to a psychiatric hospital for suicidal ideation. Kn[employer] Polisher need to be consulted because he needs help finding housing and finding financial resources to help him out with the various needs including medication and so on, so forth. For management of his skin abscesses, I would advise transition to oral clindamycin or combination of doxycycline and rifampin and decolonization regimen with topical Hibiclens. Evidently, those measures are futile in the absence of interventions that would improve the other issues noted above , particularly psy chiatric consultation/treatment. Job ID: [id number] [email or web address]
[2019-02-17] MEDS: Rifampin 300 MG CAP PO SCH (20:40)
[2019-02-17] MEDS: Doxycycline 100 MG CAP PO SCH (20:40)
[2019-02-18] MEDS: HumaLOG 300 UNITS/3 ML VIAL SC PRN ×4 (05:47→20:01)
[2019-02-18 07:41] LABS: Albumin 3.5 g/dL (3.5-5.0); Anion Gap 12 mmol/L (10-20); BUN (Urea Nitrogen) 14 mg/dL (8.9-20.6); Calc. Creatinine Clearance 114 mL/min (70-130); Calcium 9.1 mg/dL (7.8-10.44); Carbon Dioxide 23 mmol/L (22-29); Chloride 99 mmol/L (98-107); Estimated GFR-MDRD Greater than 90; Glucose 373 mg/dL (70-105); Phosphorus 3.5 mg/dL (2.3-4.7); Potassium 3.8 mmol/L (3.5-5.1); Sodium 130 mmol/L (136-145)
[2019-02-18] MEDS: Magnesium Oxide 400 MG TAB PO SCH (08:55)
[2019-02-18] MEDS: Rifampin 300 MG CAP PO SCH ×2 (08:55→20:10)
[2019-02-18] MEDS: Doxycycline 100 MG CAP PO SCH ×2 (08:55→20:10)
[2019-02-18] MEDS: Enoxaparin Sodium 40 MG/0.4 ML SYRINGE SC SCH (08:55)
[2019-02-18] MEDS: Famotidine 20 MG TAB PO SCH ×2 (08:55→20:10)
[2019-02-18] MEDS: Fluconazole 100 MG TAB PO SCH (08:55)
[2019-02-18] MEDS: Insulin Glargine 50 UNITS in Pre-Filled Syringe 1 EACH SC SCH (08:59)
--- NOTE | 2019-02-18 15:45 | PDOC.HOSPP ---
- Subjective Encounter Date: 02/18/19 Encounter Time: 10:43 Subjective: 38 y/o male with uncontrolled DM, IVDU and others admitted after suicide attempt reportedly by hanging. Patient also reportedly has been injecting methamphetamine. Feeling better. No fever, nausea or vomiting. Currently on oral antibiotics as per ID. - Objective Vital Signs & Weight: Vital Signs (12 hours) Temp Pulse Resp BP Pulse Ox 02/18/19 07:12 97.8 F 92 18 118/79 98 Weight Admit Weight 125 lb 10.616 oz Weight 125 lb Most Recent Monitor Data Heart Rate from ECG 106 NIBP 129/85 NIBP BP-Mean 99 Respiration from ECG 16 SpO2 99 I&O: 02/17/19 02/18/19 02/19/19 06:59 06:59 06:59 Intake Total 2780 3000 Output Total 2600 Balance 180 3000 Result Diagrams: 02/16/19 09:35 02/18/19 06:40 Additional Labs: Accuchecks 02/18/19 02/18/19 02/17/19 10:56 05:45 20:26 POC Glucose 405 H 500 H 349 H Hospitalist ROS - Medication Medications: Active Medications Generic Name Dose Route Start Last Admin Trade Name Freq PRN Reason Stop Dose Admin Doxycycline Hyclate 100 mg 02/17/19 21:00 02/18/19 08:55 Vibramycin PO 100 mg BID PAULINO Administration Enoxaparin Sodium 40 mg 02/15/19 09:00 02/18/19 08:55 Lovenox SC 40 mg 0900 PAULINO Administration Famotidine 20 mg 02/15/19 09:00 02/18/19 08:55 Pepcid PO 20 mg BID PAULINO Administration Fluconazole 100 mg 02/18/19 09:00 02/18/19 08:55 Diflucan PO 100 mg DAILY PAULINO Administration Insulin Glargine 50 units/ 0.5 mls @ 0 mls/hr 02/17/19 09:00 02/18/19 08:59 Miscellaneous Medication SC 0.5 mls QAM PAULINO Administration As Directed Insulin Human Lispro 0 units 02/16/19 17:02 02/18/19 11:17 Humalog SC 13 unit .AGGRESSIVE SLIDING PRN Administration Aggressive Correctional Scale Lorazepam 1 mg 02/16/19 17:05 02/17/19 21:56 Ativan PO 1 mg Q6H PRN Administration Anxiety/Agitation Magnesium Oxide 400 mg 02/18/19 09:00 02/18/19 08:55 Magnesium Oxide PO 400 mg DAILY PAULINO Administration Rifampin 300 mg 02/17/19 22:00 02/18/19 08:55 Rifadin PO 300 mg 1000,2200 PAULINO Administration Sodium Chloride 10 ml 02/15/19 09:00 02/18/19 08:56 Flush - Normal Saline IVF 10 ml Q12HR PAULINO Administration - Exam General Appearance: awake alert Eye: anicteric sclera ENT: normocephalic atraumatic, moist mucosa Neck: symmetric, no JVD Heart: RRR Heart - other findings: soft murmur Respiratory: no wheezes, no rales, no ronchi, normal chest expansion Gastrointestinal: soft, non-tender, non-distended, normal bowel sounds Extremities: no edema Neurological: cranial nerve grossly intact Psychiatric: A&O x 3 Hosp A/P (1) Suicide attempt Status: Acute (2) Abscess of multiple sites Code(s): L02.91 - CUTANEOUS ABSCESS, UNSPECIFIED Status: Acute (3) Diabetic hyperosmolar non-ketotic state Code(s): E11.00 - TYPE 2 DIAB W HYPROSM W/O NONKET HYPRGLY-HYPROS COMA ([facility]) Status: Acute (4) Hyponatremia Code(s): E87.1 - HYPO-OSMOLALITY AND HYPONATREMIA Status: Acute (5) Methamphetamine abuse Code(s): F15.10 - OTHER STIMULANT ABUSE, UNCOMPLICATED Status: Acute (6) DM2 (diabetes mellitus, type 2) Status: Chronic (7) Polysubstance abuse Code(s): F19.10 - OTHER PSYCHOACTIVE SUBSTANCE ABUSE, UNCOMPLICATED Status: Chronic (8) Hypokalemia Code(s): E87.6 - HYPOKALEMIA Status: Acute (9) GAURANG (acute kidney injury) Code(s): N17.9 - ACUTE KIDNEY FAILURE, UNSPECIFIED Status: Resolved (10) Paraphimosis Code(s): N47.2 - PARAPHIMOSIS Status: Acute (11) Alcohol abuse Code(s): F10.10 - ALCOHOL ABUSE, UNCOMPLICATED Status: Chronic (12) Tobacco dependence Code(s): F17.200 - NICOTINE DEPENDENCE, UNSPECIFIED, UNCOMPLICATED Status: Chronic - Plan Get TTE Antibiotic adjustment as per ID Dietary discretion discussed with patient Continue lantus to 50 daily and sliding scale insulin Suicide precaution to continue. Consult [facility] monitor electrolytes and replete as needed. Consult ssis etl developer
[2019-02-18] MEDS ORDERED: Insulin Glargine 70 UNITS in Pre-Filled Syringe 1 EACH SC SCH (15:48)
[2019-02-18] MEDS: Lorazepam 1 MG TAB PO PRN (20:00)
[2019-02-19] MEDS: HumaLOG 300 UNITS/3 ML VIAL SC PRN ×3 (05:51→16:27)
[2019-02-19] MEDS: Famotidine 20 MG TAB PO SCH ×2 (08:14→19:46)
[2019-02-19] MEDS: Magnesium Oxide 400 MG TAB PO SCH (08:15)
[2019-02-19] MEDS: Fluconazole 100 MG TAB PO SCH (08:15)
[2019-02-19] MEDS: Enoxaparin Sodium 40 MG/0.4 ML SYRINGE SC SCH (08:16)
[2019-02-19] MEDS: Doxycycline 100 MG CAP PO SCH ×2 (08:17→19:46)
[2019-02-19] MEDS: Rifampin 300 MG CAP PO SCH ×2 (09:20→19:46)
[2019-02-19] MEDS: Lorazepam 1 MG TAB PO PRN ×3 (10:23→23:15)
[2019-02-19] MEDS ORDERED: Nicotine 21 MG PATCH TOP SCH (16:00)
--- NOTE | 2019-02-19 17:29 | PDOC.HOSPP ---
- Subjective Encounter Date: 02/19/19 Encounter Time: 10:37 Subjective: 38 y/o male with uncontrolled DM, IVDU and others admitted after suicide attempt reportedly by hanging. Patient also reportedly has been injecting methamphetamine. Feeling better. No fever, nausea or vomiting. - Objective Vital Signs & Weight: Vital Signs (12 hours) Temp Pulse Resp BP Pulse Ox 02/19/19 08:04 97.8 F 100 18 126/78 98 02/19/19 08:00 98 Weight Admit Weight 125 lb 10.616 oz Weight 125 lb Most Recent Monitor Data Heart Rate from ECG 106 NIBP 129/85 NIBP BP-Mean 99 Respiration from ECG 16 SpO2 99 I&O: 02/18/19 02/19/19 02/20/19 06:59 06:59 06:59 Intake Total 3000 1380 Balance 3000 1380 Result Diagrams: 02/16/19 09:35 02/18/19 06:40 Additional Labs: Accuchecks 02/19/19 02/19/19 02/19/19 16:30 10:59 05:07 POC Glucose 330 H 339 H 336 H 02/18/19 19:55 POC Glucose 404 H Hospitalist ROS - Medication Medications: Active Medications Generic Name Dose Route Start Last Admin Trade Name Freq PRN Reason Stop Dose Admin Doxycycline Hyclate 100 mg 02/17/19 21:00 02/19/19 08:17 Vibramycin PO 100 mg BID PAULINO Administration Enoxaparin Sodium 40 mg 02/15/19 09:00 02/19/19 08:16 Lovenox SC 40 mg 0900 PAULINO Administration Famotidine 20 mg 02/15/19 09:00 02/19/19 08:14 Pepcid PO 20 mg BID PAULINO Administration Fluconazole 100 mg 02/18/19 09:00 02/19/19 08:15 Diflucan PO 100 mg DAILY PAULINO Administration Insulin Glargine 70 units/ 0.7 mls @ 0 mls/hr 02/18/19 15:48 02/19/19 08:13 Miscellaneous Medication SC 0.7 mls QAM PAULINO Administration As Directed Insulin Human Lispro 0 units 02/16/19 17:02 02/19/19 16:27 Humalog SC 11 unit .AGGRESSIVE SLIDING PRN Administration Aggressive Correctional Scale Lorazepam 1 mg 02/16/19 17:05 02/19/19 16:26 Ativan PO 1 mg Q6H PRN Administration Anxiety/Agitation Magnesium Oxide 400 mg 02/18/19 09:00 02/19/19 08:15 Magnesium Oxide PO 400 mg DAILY PAULINO Administration Nicotine 21 mg 02/19/19 16:00 02/19/19 16:03 Nicoderm Patch TOP 21 mg 1600 PAULINO Administration Rifampin 300 mg 02/17/19 22:00 02/19/19 09:20 Rifadin PO 300 mg 1000,2200 PAULINO Administration Sodium Chloride 10 ml 02/15/19 09:00 02/19/19 08:17 Flush - Normal Saline IVF 10 ml Q12HR PAULINO Administration - Exam General Appearance: awake alert Eye: anicteric sclera ENT: normocephalic atraumatic Neck: symmetric, no JVD Heart: RRR Respiratory: no wheezes, no rales, no ronchi, normal chest expansion Gastrointestinal: soft, non-tender, non-distended, normal bowel sounds Extremities: no edema Neurological: cranial nerve grossly intact, no focal deficits Psychiatric: A&O x 3 Hosp A/P (1) Suicide attempt Status: Acute (2) Abscess of multiple sites Code(s): L02.91 - CUTANEOUS ABSCESS, UNSPECIFIED Status: Acute (3) Diabetic hyperosmolar non-ketotic state Code(s): E11.00 - TYPE 2 DIAB W HYPROSM W/O NONKET HYPRGLY-HYPROS COMA ([facility]) Status: Acute (4) Hyponatremia Code(s): E87.1 - HYPO-OSMOLALITY AND HYPONATREMIA Status: Acute (5) Methamphetamine abuse Code(s): F15.10 - OTHER STIMULANT ABUSE, UNCOMPLICATED Status: Acute (6) DM2 (diabetes mellitus, type 2) Status: Chronic (7) Polysubstance abuse Code(s): F19.10 - OTHER PSYCHOACTIVE SUBSTANCE ABUSE, UNCOMPLICATED Status: Chronic (8) Hypokalemia Code(s): E87.6 - HYPOKALEMIA Status: Acute (9) GAURANG (acute kidney injury) Code(s): N17.9 - ACUTE KIDNEY FAILURE, UNSPECIFIED Status: Resolved (10) Paraphimosis Code(s): N47.2 - PARAPHIMOSIS Status: Acute (11) Alcohol abuse Code(s): F10.10 - ALCOHOL ABUSE, UNCOMPLICATED Status: Chronic (12) Tobacco dependence Code(s): F17.200 - NICOTINE DEPENDENCE, UNSPECIFIED, UNCOMPLICATED Status: Chronic - Plan Antibiotic adjustment as per ID Continue lantus to 50 daily and sliding scale insulin Suicide precaution to continue. Awaiting MR monitor electrolytes and replete as needed. Medicallly ready for discharge to inpatient psych for further treatment
[2019-02-19] MEDS: Nicotine 21 MG PATCH TOP SCH (22:46)
[2019-02-20] MEDS: HumaLOG 300 UNITS/3 ML VIAL SC PRN ×4 (05:38→21:45)
[2019-02-20] MEDS: Lorazepam 1 MG TAB PO PRN ×3 (09:04→21:15)
[2019-02-20] MEDS: Magnesium Oxide 400 MG TAB PO SCH (09:04)
[2019-02-20] MEDS: Enoxaparin Sodium 40 MG/0.4 ML SYRINGE SC SCH (09:04)
[2019-02-20] MEDS: Fluconazole 100 MG TAB PO SCH (09:04)
[2019-02-20] MEDS: Insulin Glargine 80 UNITS in Pre-Filled Syringe 1 EACH SC SCH (09:04)
[2019-02-20] MEDS: Doxycycline 100 MG CAP PO SCH ×2 (09:04→21:00)
[2019-02-20] MEDS: Rifampin 300 MG CAP PO SCH ×2 (09:04→21:01)
[2019-02-20] MEDS: Famotidine 20 MG TAB PO SCH ×2 (09:04→21:00)
--- NOTE | 2019-02-20 13:44 | PDOC.HOSPP ---
- Subjective Encounter Date: 02/20/19 Encounter Time: 11:41 Subjective: 38 y/o male with uncontrolled DM, IVDU and others admitted after suicide attempt reportedly by hanging. Patient also admitted reportedly has been injecting methamphetamine. Feeling better. No fever, nausea or vomiting. Awaiting Psych placement - Objective Vital Signs & Weight: Vital Signs (12 hours) Temp Pulse Resp BP BP Pulse Ox 02/20/19 08:00 97.6 F 102 H 16 114/81 98 02/20/19 04:00 97.7 F 81 20 123/81 98 Weight Admit Weight 125 lb 10.616 oz Weight 125 lb Most Recent Monitor Data Heart Rate from ECG 106 NIBP 129/85 NIBP BP-Mean 99 Respiration from ECG 16 SpO2 99 I&O: 02/19/19 02/20/19 02/21/19 06:59 06:59 06:59 Intake Total 1939 Balance 1939 Result Diagrams: 02/16/19 09:35 02/18/19 06:40 Additional Labs: Accuchecks 02/20/19 02/20/19 02/19/19 11:04 04:36 19:28 POC Glucose 428 H 270 H 208 H 02/19/19 16:30 POC Glucose 330 H Hospitalist ROS - Medication Medications: Active Medications Generic Name Dose Route Start Last Admin Trade Name Freq PRN Reason Stop Dose Admin Doxycycline Hyclate 100 mg 02/17/19 21:00 02/20/19 09:04 Vibramycin PO 100 mg BID PAULINO Administration Enoxaparin Sodium 40 mg 02/15/19 09:00 02/20/19 09:04 Lovenox SC 40 mg 0900 PAULINO Administration Famotidine 20 mg 02/15/19 09:00 02/20/19 09:04 Pepcid PO 20 mg BID PAULINO Administration Fluconazole 100 mg 02/18/19 09:00 02/20/19 09:04 Diflucan PO 100 mg DAILY PAULINO Administration Insulin Glargine 80 units/ 0.8 mls @ 0 mls/hr 02/20/19 09:00 02/20/19 09:04 Miscellaneous Medication SC 0.8 mls QAM PAULINO Administration As Directed Insulin Human Lispro 0 units 02/16/19 17:02 02/20/19 11:42 Humalog SC 13 unit .AGGRESSIVE SLIDING PRN Administration Aggressive Correctional Scale Lorazepam 1 mg 02/16/19 17:05 02/20/19 09:04 Ativan PO 1 mg Q6H PRN Administration Anxiety/Agitation Magnesium Oxide 400 mg 02/18/19 09:00 02/20/19 09:04 Magnesium Oxide PO 400 mg DAILY PAULINO Administration Nicotine 21 mg 02/19/19 22:30 02/19/19 22:46 Nicoderm Patch TOP 21 mg Q24HR PAULINO Administration Rifampin 300 mg 02/17/19 22:00 02/20/19 09:04 Rifadin PO 300 mg 1000,2200 PAULINO Administration Sodium Chloride 10 ml 02/15/19 09:00 02/20/19 07:27 Flush - Normal Saline IVF Not Given Q12HR PAULINO - Exam General Appearance: awake alert Eye: anicteric sclera ENT: normocephalic atraumatic Neck: symmetric, no JVD Heart: RRR Respiratory: no wheezes, no rales, no ronchi, normal chest expansion, no tachypnea Gastrointestinal: soft, non-tender, non-distended, normal bowel sounds Extremities: no cyanosis, no edema Neurological: cranial nerve grossly intact, no focal deficits Psychiatric: A&O x 3 Hosp A/P (1) Suicide attempt Status: Acute (2) Abscess of multiple sites Code(s): L02.91 - CUTANEOUS ABSCESS, UNSPECIFIED Status: Acute (3) Diabetic hyperosmolar non-ketotic state Code(s): E11.00 - TYPE 2 DIAB W HYPROSM W/O NONKET HYPRGLY-HYPROS COMA ([facility]) Status: Acute (4) Hyponatremia Code(s): E87.1 - HYPO-OSMOLALITY AND HYPONATREMIA Status: Acute (5) Methamphetamine abuse Code(s): F15.10 - OTHER STIMULANT ABUSE, UNCOMPLICATED Status: Acute (6) DM2 (diabetes mellitus, type 2) Status: Chronic (7) Polysubstance abuse Code(s): F19.10 - OTHER PSYCHOACTIVE SUBSTANCE ABUSE, UNCOMPLICATED Status: Chronic (8) Hypokalemia Code(s): E87.6 - HYPOKALEMIA Status: Acute (9) GAURANG (acute kidney injury) Code(s): N17.9 - ACUTE KIDNEY FAILURE, UNSPECIFIED Status: Resolved (10) Paraphimosis Code(s): N47.2 - PARAPHIMOSIS Status: Acute (11) Alcohol abuse Code(s): F10.10 - ALCOHOL ABUSE, UNCOMPLICATED Status: Chronic (12) Tobacco dependence Code(s): F17.200 - NICOTINE DEPENDENCE, UNSPECIFIED, UNCOMPLICATED Status: Chronic - Plan Antibiotic adjustment as per ID Increase lantus to 80 daily and continue sliding scale insulin Suicide precaution to continue. monitor electrolytes and replete as needed. Medicallly ready for discharge Awaiting Psych placement
[2019-02-20] MEDS: Nicotine 21 MG PATCH TOP SCH (21:01)
[2019-02-21] MEDS: diphenhydrAMINE 25 MG CAP PO PRN ×2 (02:56→21:35)
[2019-02-21] MEDS: HumaLOG 300 UNITS/3 ML VIAL SC PRN ×4 (05:29→21:30)
[2019-02-21] MEDS: Enoxaparin Sodium 40 MG/0.4 ML SYRINGE SC SCH (08:53)
[2019-02-21] MEDS: Fluconazole 100 MG TAB PO SCH (08:53)
[2019-02-21] MEDS: Magnesium Oxide 400 MG TAB PO SCH (08:53)
[2019-02-21] MEDS: Famotidine 20 MG TAB PO SCH ×2 (08:53→21:28)
[2019-02-21] MEDS: Doxycycline 100 MG CAP PO SCH ×2 (08:53→21:28)
[2019-02-21] MEDS: Insulin Glargine 80 UNITS in Pre-Filled Syringe 1 EACH SC SCH (08:54)
[2019-02-21] MEDS: Rifampin 300 MG CAP PO SCH ×2 (10:38→21:28)
--- NOTE | 2019-02-21 14:17 | PRG ---
DATE OF SERVICE: 02/21/2019 SUBJECTIVE: Mr. Bolton is much better mood today. He is going to be transferred soon to psychiatric facility and then to rehab. His inflammatory nodularity is improved quite significantly. No respiratory symptoms or abdominal pain. No diarrhea. Able to void without difficulty. No fever. Other vital signs are normal. All the skin abscesses are improving. Still with areas of induration in the penile shaft skin. Phimosis is improved. LABORATORY DATA: White cell count 6.4, hemoglobin 14, platelets 236. Creatinine 0.7, which is markedly improved from admission. Two sets of blood cultures, no growth in 5 days. Urine culture, no growth at 36 hours. He is currently on doxycycline and rifampin. ASSESSMENT AND DISCUSSION: Homelessness poverty methamphetamine use with resulting skin abscesses with negative blood cultures. The patient is on doxycycline and rifampin for another 2 weeks or so approximately, and may need subsequent foreskin resection since it is likely to develop stricture of the foreskin. Job ID: [id number]
--- NOTE | 2019-02-21 18:02 | PDOC.HOSPP ---
- Subjective Subjective: Seen and examined. Patient with abscesses that are improved since admission, per patient. Pending insurance approval for transferred to [facility], after [facility] the patient will need drug and alcohol rehabilitation of which he tells me he has a bed in [place]. Patient's family at bedside, questions were asked, all answered in detail. Patient happy with plan of care and is anxious to get well. - Objective Vital Signs & Weight: Vital Signs (12 hours) Temp Pulse Resp BP Pulse Ox 02/21/19 08:00 97.9 F 90 16 111/75 98 Weight Admit Weight 125 lb 10.616 oz Weight 125 lb Most Recent Monitor Data Heart Rate from ECG 106 NIBP 129/85 NIBP BP-Mean 99 Respiration from ECG 16 SpO2 99 I&O: 02/20/19 02/21/19 02/22/19 06:59 06:59 06:59 Intake Total 1940 720 600 Balance 1940 720 600 Result Diagrams: 02/16/19 09:35 02/18/19 06:40 Additional Labs: Accuchecks 02/21/19 02/21/19 02/21/19 16:29 11:39 04:55 POC Glucose 299 H 317 H 333 H 02/20/19 21:04 POC Glucose 466 H Radiology Reviewed by me: Yes Hospitalist ROS - Review of Systems All other systems reviewed; all pertinent +/- noted in HPI/Subj - Medication Medications: Active Medications Generic Name Dose Route Start Last Admin Trade Name Freq PRN Reason Stop Dose Admin Diphenhydramine HCl 25 mg 02/21/19 02:49 02/21/19 02:56 Benadryl PO 25 mg Q6H PRN Administration Itching & Insomnia Doxycycline Hyclate 100 mg 02/17/19 21:00 02/21/19 08:53 Vibramycin PO 100 mg BID PAULINO Administration Enoxaparin Sodium 40 mg 02/15/19 09:00 02/21/19 08:53 Lovenox SC 40 mg 0900 PAULINO Administration Famotidine 20 mg 02/15/19 09:00 02/21/19 08:53 Pepcid PO 20 mg BID PAULINO Administration Fluconazole 100 mg 02/18/19 09:00 02/21/19 08:53 Diflucan PO 100 mg DAILY PAULINO Administration Insulin Human Lispro 0 units 02/16/19 17:02 02/21/19 17:53 Humalog SC 9 unit .AGGRESSIVE SLIDING PRN Administration Aggressive Correctional Scale Insulin Human Lispro 0 units 02/20/19 21:42 02/20/19 21:45 Humalog SC 5 units .BEDTIME SLIDING SC PRN Administration Bedtime Correctional Scale Lorazepam 1 mg 02/16/19 17:05 02/20/19 21:15 Ativan PO 1 mg Q6H PRN Administration Anxiety/Agitation Magnesium Oxide 400 mg 02/18/19 09:00 02/21/19 08:53 Magnesium Oxide PO 400 mg DAILY PAULINO Administration Nicotine 21 mg 02/19/19 22:30 02/20/19 21:01 Nicoderm Patch TOP 21 mg Q24HR PAULINO Administration Rifampin 300 mg 02/17/19 22:00 02/21/19 10:38 Rifadin PO 300 mg 1000,2200 PAULINO Administration Sodium Chloride 10 ml 02/15/19 09:00 02/21/19 08:54 Flush - Normal Saline IVF 10 ml Q12HR PAULINO Administration - Exam General Appearance: NAD, awake alert Eye: PERRL ENT: normocephalic atraumatic, moist mucosa Neck: supple, symmetric, no lymphadenopathy Heart: RRR, no murmur, no gallops, no rubs Respiratory: no wheezes, no rales, no ronchi, no tachypnea Gastrointestinal: soft, non-tender, non-distended, no guarding, no rigidity Extremities: no clubbing, no edema Skin - other findings: abcesses are improved since admission per patient - see pictures for detail Neurological: cranial nerve grossly intact, no focal deficits Musculoskeletal: no muscle wasting Psychiatric: normal affect, normal behavior, A&O x 3 Hosp A/P (1) Abscess of multiple sites Code(s): L02.91 - CUTANEOUS ABSCESS, UNSPECIFIED Status: Acute (2) Diabetic hyperosmolar non-ketotic state Code(s): E11.00 - TYPE 2 DIAB W HYPROSM W/O NONKET HYPRGLY-HYPROS COMA ([facility]) Status: Acute (3) Hypokalemia Code(s): E87.6 - HYPOKALEMIA Status: Acute (4) Hyponatremia Code(s): E87.1 - HYPO-OSMOLALITY AND HYPONATREMIA Status: Acute (5) Paraphimosis Code(s): N47.2 - PARAPHIMOSIS Status: Acute (6) Suicide attempt Status: Acute (7) Abscess Code(s): L02.91 - CUTANEOUS ABSCESS, UNSPECIFIED Status: Acute (8) Balanitis Code(s): N48.1 - BALANITIS Status: Acute (9) DKA (diabetic ketoacidosis) Code(s): E13.10 - OTH DIABETES MELLITUS WITH KETOACIDOSIS WITHOUT COMA Status : Acute (10) Methamphetamine abuse Code(s): F15.10 - OTHER STIMULANT ABUSE, UNCOMPLICATED Status: Acute (11) Alcohol abuse Code(s): F10.10 - ALCOHOL ABUSE, UNCOMPLICATED Status: Chronic (12) DM2 (diabetes mellitus, type 2) Status: Chronic (13) Polysubstance abuse Code(s): F19.10 - OTHER PSYCHOACTIVE SUBSTANCE ABUSE, UNCOMPLICATED Status: Chronic (14) Tobacco dependence Code(s): F17.200 - NICOTINE DEPENDENCE, UNSPECIFIED, UNCOMPLICATED Status: Chronic (15) Uncontrolled type 2 diabetes mellitus with peripheral neuropathy Code(s): E11.42 - TYPE 2 DIABETES MELLITUS WITH DIABETIC POLYNEUROPATHY; E11.65 - TYPE 2 DIABETES MELLITUS WITH HYPERGLYCEMIA Status: Chronic (16) GAURANG (acute kidney injury) Code(s): N17.9 - ACUTE KIDNEY FAILURE, UNSPECIFIED Status: Resolved - Plan Plan: medical unit infectious disease consultation, recommendations appreciated patient responding to maximal medical therapy antibiotics are being effective blood cultures negative adjust long and short acting insulin for improved glucose control patient tells me his hemoglobin A1c is greater than 12 blood pressure control replace electrolytes as needed disposition: patient is pending insurance approval for transfer to inpatient psychiatric facility, he will then go to inpatient detox in [place].
[2019-02-21] MEDS: Insulin Glargine 45 UNITS in Pre-Filled Syringe 1 EACH SC SCH (21:29)
[2019-02-21] MEDS: Nicotine 21 MG PATCH TOP SCH (21:30)
[2019-02-21] MEDS: Lorazepam 1 MG TAB PO PRN (21:35)
[2019-02-22] MEDS: HumaLOG 300 UNITS/3 ML VIAL SC PRN ×4 (06:19→20:27)
[2019-02-22] MEDS: Insulin Glargine 45 UNITS in Pre-Filled Syringe 1 EACH SC SCH (09:13)
[2019-02-22] MEDS: Doxycycline 100 MG CAP PO SCH ×2 (09:14→20:25)
[2019-02-22] MEDS: Magnesium Oxide 400 MG TAB PO SCH (09:14)
[2019-02-22] MEDS: Fluconazole 100 MG TAB PO SCH (09:14)
[2019-02-22] MEDS: Famotidine 20 MG TAB PO SCH ×2 (09:14→20:25)
[2019-02-22] MEDS: Enoxaparin Sodium 40 MG/0.4 ML SYRINGE SC SCH (09:14)
[2019-02-22] MEDS: Rifampin 300 MG CAP PO SCH ×2 (09:15→20:25)
--- NOTE | 2019-02-22 14:30 | PDOC.HOSPP ---
- Subjective Subjective: Seen and examined. A.m. blood sugar was 177, though lunchtime sugar was 330. Psychiatric facility requesting blood sugars to be controlled prior to discharge. Inpatient detox program requesting bloodwork prior to admission. Patient's abscesses are improving. Overall clinically improving. All questions answered in detail. Patient happy with plan of care. - Objective Vital Signs & Weight: Vital Signs (12 hours) Pulse Ox 02/22/19 08:00 92 L Weight Admit Weight 125 lb 10.616 oz Weight 125 lb Most Recent Monitor Data Heart Rate from ECG 106 NIBP 129/85 NIBP BP-Mean 99 Respiration from ECG 16 SpO2 99 I&O: 02/21/19 02/22/19 02/23/19 06:59 06:59 06:59 Intake Total 720 840 Balance 720 840 Result Diagrams: 02/16/19 09:35 02/18/19 06:40 Additional Labs: Accuchecks 02/22/19 02/22/19 02/21/19 11:35 06:05 19:58 POC Glucose 337 H 177 H 248 H 02/21/19 16:29 POC Glucose 299 H Hospitalist ROS - Review of Systems All other systems reviewed; all pertinent +/- noted in HPI/Subj - Medication Medications: Active Medications Generic Name Dose Route Start Last Admin Trade Name Freq PRN Reason Stop Dose Admin Diphenhydramine HCl 25 mg 02/21/19 02:49 02/21/19 21:35 Benadryl PO 25 mg Q6H PRN Administration Itching & Insomnia Doxycycline Hyclate 100 mg 02/17/19 21:00 02/22/19 09:14 Vibramycin PO 100 mg BID PAULINO Administration Enoxaparin Sodium 40 mg 02/15/19 09:00 02/22/19 09:14 Lovenox SC 40 mg 0900 PAULINO Administration Famotidine 20 mg 02/15/19 09:00 02/22/19 09:14 Pepcid PO 20 mg BID PAULINO Administration Fluconazole 100 mg 02/18/19 09:00 02/22/19 09:14 Diflucan PO 100 mg DAILY PAULINO Administration Insulin Human Lispro 0 units 02/16/19 17:02 02/22/19 12:39 Humalog SC 11 unit .AGGRESSIVE SLIDING PRN Administration Aggressive Correctional Scale Insulin Human Lispro 0 units 02/20/19 21:42 02/21/19 21:30 Humalog SC 2 units .BEDTIME SLIDING SC PRN Administration Bedtime Correctional Scale Lorazepam 1 mg 02/16/19 17:05 02/21/19 21:35 Ativan PO 1 mg Q6H PRN Administration Anxiety/Agitation Magnesium Oxide 400 mg 02/18/19 09:00 02/22/19 09:14 Magnesium Oxide PO 400 mg DAILY PAULINO Administration Nicotine 21 mg 02/19/19 22:30 02/21/19 21:30 Nicoderm Patch TOP 21 mg Q24HR PAULINO Administration Rifampin 300 mg 02/17/19 22:00 02/22/19 09:15 Rifadin PO 300 mg 1000,2200 PAULINO Administration Sodium Chloride 10 ml 02/15/19 09:00 02/22/19 09:15 Flush - Normal Saline IVF 10 ml Q12HR PAULINO Administration - Exam General Appearance: NAD, awake alert Eye: anicteric sclera ENT: normocephalic atraumatic, moist mucosa Neck: supple, symmetric, no lymphadenopathy Heart: no murmur, no gallops, no rubs Respiratory: CTAB, no wheezes, no rales, no tachypnea Gastrointestinal: soft, non-tender, no guarding, no rigidity Extremities: no edema Skin - other findings: Improving abcesses and lesions. See wound care pictures for details Neurological: cranial nerve grossly intact, no focal deficits Musculoskeletal: generalized weakness Psychiatric: normal affect, A&O x 3 Hosp A/P (1) Abscess of multiple sites Code(s): L02.91 - CUTANEOUS ABSCESS, UNSPECIFIED Status: Acute (2) Diabetic hyperosmolar non-ketotic state Code(s): E11.00 - TYPE 2 DIAB W HYPROSM W/O NONKET HYPRGLY-HYPROS COMA ([facility]) Status: Acute (3) Hypokalemia Code(s): E87.6 - HYPOKALEMIA Status: Acute (4) Hyponatremia Code(s): E87.1 - HYPO-OSMOLALITY AND HYPONATREMIA Status: Acute (5) Paraphimosis Code(s): N47.2 - PARAPHIMOSIS Status: Acute (6) Suicide attempt Status: Acute (7) Abscess Code(s): L02.91 - CUTANEOUS ABSCESS, UNSPECIFIED Status: Acute (8) Balanitis Code(s): N48.1 - BALANITIS Status: Acute (9) DKA (diabetic ketoacidosis) Code(s): E13.10 - OTH DIABETES MELLITUS WITH KETOACIDOSIS WITHOUT COMA Status : Acute (10) Methamphetamine abuse Code(s): F15.10 - OTHER STIMULANT ABUSE, UNCOMPLICATED Status: Acute (11) Alcohol abuse Code(s): F10.10 - ALCOHOL ABUSE, UNCOMPLICATED Status: Chronic (12) DM2 (diabetes mellitus, type 2) Status: Chronic (13) Polysubstance abuse Code(s): F19.10 - OTHER PSYCHOACTIVE SUBSTANCE ABUSE, UNCOMPLICATED Status: Chronic (14) Tobacco dependence Code(s): F17.200 - NICOTINE DEPENDENCE, UNSPECIFIED, UNCOMPLICATED Status: Chronic (15) Uncontrolled type 2 diabetes mellitus with peripheral neuropathy Code(s): E11.42 - TYPE 2 DIABETES MELLITUS WITH DIABETIC POLYNEUROPATHY; E11.65 - TYPE 2 DIABETES MELLITUS WITH HYPERGLYCEMIA Status: Chronic (16) GAURANG (acute kidney injury) Code(s): N17.9 - ACUTE KIDNEY FAILURE, UNSPECIFIED Status: Resolved - Plan Plan: medical unit infectious disease consultation, recommendations appreciated patient responding to maximal medical therapy antibiotics are being effective blood cultures negative Increase Lantus to 50 units BID short acting insulin for improved glucose control Needs CONSISTENT oral intake for proper insulin adjustment, no skipping meals or extra portions/ very large meals patient tells me his hemoglobin A1c is greater than 12 blood pressure control replace electrolytes as needed Add blood work requested by drug and alcohol program disposition: patient is pending insurance approval for transfer to inpatient psychiatric facility, he will then go to inpatient detox in [place].
[2019-02-22 16:52] LABS: HBCM Index 0.06 S/CO (0-0.79); HBSAg Index 0.29 S/CO (0-0.99); HIV (1/2) Antibody/Antigen Non-Reactive (NonReactive); HIV 1/2 INDEX 0.08 S/CO (<1.00); Hep A IgM AB Non-Reactive (NonReactive); Hep A IgM S/CO 0.19 S/CO (0-0.79); Hep B Surf Ag Non-Reactive S/CO (NonReactive); Hepatitis B Core IgM Abs Non-Reactive (NonReactive)
[2019-02-22 16:54] LABS: Hep C IgG Ab Reflex HepC Qnt (NonReactive); Hep C Index 9.41 S/CO (0-0.79)
[2019-02-22] MEDS: Insulin Glargine 50 UNITS in Pre-Filled Syringe 1 EACH SC SCH (20:26)
[2019-02-22] MEDS: diphenhydrAMINE 25 MG CAP PO PRN (20:32)
[2019-02-22] MEDS: Lorazepam 1 MG TAB PO PRN (20:32)
[2019-02-22] MEDS: Nicotine 21 MG PATCH TOP SCH (20:35)
[2019-02-23] MEDS: Doxycycline 100 MG CAP PO SCH ×2 (08:26→21:12)
[2019-02-23] MEDS: Magnesium Oxide 400 MG TAB PO SCH (08:26)
[2019-02-23] MEDS: Fluconazole 100 MG TAB PO SCH (08:26)
[2019-02-23] MEDS: Famotidine 20 MG TAB PO SCH ×2 (08:26→21:12)
[2019-02-23] MEDS: Insulin Glargine 50 UNITS in Pre-Filled Syringe 1 EACH SC SCH (08:27)
[2019-02-23] MEDS: Enoxaparin Sodium 40 MG/0.4 ML SYRINGE SC SCH (08:27)
[2019-02-23] MEDS: Rifampin 300 MG CAP PO SCH ×2 (08:28→21:13)
[2019-02-23] MEDS ORDERED: risperiDONE 1 MG TAB PO SCH (11:45)
[2019-02-23] MEDS ORDERED: metFORMIN 500 MG TAB PO SCH (11:45)
[2019-02-23] MEDS: HumaLOG 300 UNITS/3 ML VIAL SC PRN ×2 (11:51→17:54)
--- NOTE | 2019-02-23 13:44 | PDOC.HOSPP ---
- Subjective Subjective: Seen and examined. Patient frustrated that is blood sugars are not controlled. Recommended small consistent oral intake. Patient admits to taking double portions at times and skipping meals at times which have made sugars highs and lows. Patient's A1c of 12.8 shows that is average sugars are near 400 over the past three months and uncontrolled, it will take time to reverse this process. Discussed increasing insulin and starting Metformin. Patient with emotional outbursts. Patient and his family are requesting mood stabilizing medication, starting risperidone which he states he has been on in the past and does help him. When blood sugars are controlled we will plan for discharge to psychiatric facility. - Objective Vital Signs & Weight: Vital Signs (12 hours) Temp Pulse Resp BP Pulse Ox 02/23/19 08:02 97.6 F 81 20 128/82 100 02/23/19 08:00 100 Weight Admit Weight 125 lb 10.616 oz Weight 125 lb Most Recent Monitor Data Heart Rate from ECG 106 NIBP 129/85 NIBP BP-Mean 99 Respiration from ECG 16 SpO2 99 I&O: 02/22/19 02/23/19 02/24/19 06:59 06:59 06:59 Intake Total 840 1380 300 Balance 840 1380 300 Result Diagrams: 02/16/19 09:35 02/18/19 06:40 Additional Labs: Accuchecks 02/23/19 02/22/19 02/22/19 06:30 20:25 16:10 POC Glucose 149 H 350 H 247 H Radiology Reviewed by me: Yes Hospitalist ROS - Review of Systems All other systems reviewed; all pertinent +/- noted in HPI/Subj - Medication Medications: Active Medications Generic Name Dose Route Start Last Admin Trade Name Freq PRN Reason Stop Dose Admin Diphenhydramine HCl 25 mg 02/21/19 02:49 02/22/19 20:32 Benadryl PO 25 mg Q6H PRN Administration Itching & Insomnia Doxycycline Hyclate 100 mg 02/17/19 21:00 02/23/19 08:26 Vibramycin PO 100 mg BID PAULINO Administration Enoxaparin Sodium 40 mg 02/15/19 09:00 02/23/19 08:27 Lovenox SC Not Given 0900 PAULINO Famotidine 20 mg 02/15/19 09:00 02/23/19 08:26 Pepcid PO 20 mg BID PAULINO Administration Fluconazole 100 mg 02/18/19 09:00 02/23/19 08:26 Diflucan PO 100 mg DAILY PAULINO Administration Insulin Human Lispro 0 units 02/16/19 17:02 02/23/19 11:51 Humalog SC 11 unit .AGGRESSIVE SLIDING PRN Administration Aggressive Correctional Scale Insulin Human Lispro 0 units 02/20/19 21:42 02/22/19 20:27 Humalog SC 5 units .BEDTIME SLIDING SC PRN Administration Bedtime Correctional Scale Lorazepam 1 mg 02/16/19 17:05 02/22/19 20:32 Ativan PO 1 mg Q6H PRN Administration Anxiety/Agitation Magnesium Oxide 400 mg 02/18/19 09:00 02/23/19 08:26 Magnesium Oxide PO 400 mg DAILY PAULINO Administration Metformin HCl 500 mg 02/23/19 11:45 02/23/19 11:51 Glucophage PO 02/23/19 13:45 500 mg NOW PAULINO Administration Nicotine 21 mg 02/19/19 22:30 02/22/19 20:35 Nicoderm Patch TOP 21 mg Q24HR PAULINO Administration Rifampin 300 mg 02/17/19 22:00 02/23/19 08:28 Rifadin PO 300 mg 1000,2200 PAULINO Administration Sodium Chloride 10 ml 02/15/19 09:00 02/23/19 08:28 Flush - Normal Saline IVF Not Given Q12HR PAULINO - Exam General Appearance: NAD, awake alert Eye: anicteric sclera ENT: normocephalic atraumatic, moist mucosa Neck: supple, symmetric, no lymphadenopathy Heart: no murmur, no gallops, no rubs Respiratory: CTAB, no wheezes, no rales, no tachypnea Gastrointestinal: soft, non-tender, normal bowel sounds, no palpable masses Extremities: no edema Skin: no lesions, no rashes Neurological: cranial nerve grossly intact, no focal deficits Musculoskeletal: generalized weakness Psychiatric: A&O x 3 Hosp A/P (1) Abscess of multiple sites Code(s): L02.91 - CUTANEOUS ABSCESS, UNSPECIFIED Status: Acute (2) Diabetic hyperosmolar non-ketotic state Code(s): E11.00 - TYPE 2 DIAB W HYPROSM W/O NONKET HYPRGLY-HYPROS COMA ([facility]) Status: Acute (3) Hypokalemia Code(s): E87.6 - HYPOKALEMIA Status: Acute (4) Hyponatremia Code(s): E87.1 - HYPO-OSMOLALITY AND HYPONATREMIA Status: Acute (5) Paraphimosis Code(s): N47.2 - PARAPHIMOSIS Status: Acute (6) Suicide attempt Status: Acute (7) Abscess Code(s): L02.91 - CUTANEOUS ABSCESS, UNSPECIFIED Status: Acute (8) Balanitis Code(s): N48.1 - BALANITIS Status: Acute (9) DKA (diabetic ketoacidosis) Code(s): E13.10 - OTH DIABETES MELLITUS WITH KETOACIDOSIS WITHOUT COMA Status : Acute (10) Methamphetamine abuse Code(s): F15.10 - OTHER STIMULANT ABUSE, UNCOMPLICATED Status: Acute (11) Alcohol abuse Code(s): F10.10 - ALCOHOL ABUSE, UNCOMPLICATED Status: Chronic (12) DM2 (diabetes mellitus, type 2) Status: Chronic (13) Polysubstance abuse Code(s): F19.10 - OTHER PSYCHOACTIVE SUBSTANCE ABUSE, UNCOMPLICATED Status: Chronic (14) Tobacco dependence Code(s): F17.200 - NICOTINE DEPENDENCE, UNSPECIFIED, UNCOMPLICATED Status: Chronic (15) Uncontrolled type 2 diabetes mellitus with peripheral neuropathy Code(s): E11.42 - TYPE 2 DIABETES MELLITUS WITH DIABETIC POLYNEUROPATHY; E11.65 - TYPE 2 DIABETES MELLITUS WITH HYPERGLYCEMIA Status: Chronic (16) GAURANG (acute kidney injury) Code(s): N17.9 - ACUTE KIDNEY FAILURE, UNSPECIFIED Status: Resolved - Plan Plan: medical unit infectious disease consultation, recommendations appreciated patient responding to maximal medical therapy antibiotics are being effective blood cultures negative Increase Lantus to 53 units BID Start Metformin 500mg ER BID - Will increase in the upcoming days short acting insulin for improved glucose control Needs CONSISTENT oral intake for proper insulin adjustment, no skipping meals or extra portions/ very large meals patient tells me his hemoglobin A1c is greater than 12 Start Risperidone for mood stabilization blood pressure control replace electrolytes as needed Add blood work requested by drug and alcohol program disposition: patient is pending insurance approval for transfer to inpatient psychiatric facility, he will then go to inpatient detox in [place].
[2019-02-23] MEDS: Lorazepam 1 MG TAB PO PRN ×2 (13:49→21:14)
[2019-02-23] MEDS: metFORMIN 500 MG TAB PO SCH (17:32)
[2019-02-23] MEDS: risperiDONE 1 MG TAB PO SCH (21:12)
[2019-02-23] MEDS: PRE FILLED SC SCH (21:13)
[2019-02-23] MEDS: Nicotine 21 MG PATCH TOP SCH (21:13)
[2019-02-23] MEDS: INSULIN GLARGINE SC SCH (21:13)
[2019-02-23] MEDS: diphenhydrAMINE 25 MG CAP PO PRN (21:14)
[2019-02-24] MEDS: Enoxaparin Sodium 40 MG/0.4 ML SYRINGE SC SCH (08:50)
[2019-02-24] MEDS: risperiDONE 1 MG TAB PO SCH ×2 (08:52→20:54)
[2019-02-24] MEDS: INSULIN GLARGINE SC SCH (08:52)
[2019-02-24] MEDS: PRE FILLED SC SCH (08:52)
[2019-02-24] MEDS: Fluconazole 100 MG TAB PO SCH (08:53)
[2019-02-24] MEDS: Rifampin 300 MG CAP PO SCH ×2 (08:53→20:54)
[2019-02-24] MEDS: Magnesium Oxide 400 MG TAB PO SCH (08:53)
[2019-02-24] MEDS: Doxycycline 100 MG CAP PO SCH ×2 (08:53→20:54)
[2019-02-24] MEDS: metFORMIN 500 MG TAB PO SCH ×2 (08:57→16:19)
[2019-02-24] MEDS: Lorazepam 1 MG TAB PO PRN ×2 (09:06→20:54)
[2019-02-24] MEDS: Famotidine 20 MG TAB PO SCH ×2 (09:10→20:54)
[2019-02-24] MEDS ORDERED: Tuberculin PPD 0.1 ML VIAL I-DERMAL SCH (09:30)
[2019-02-24] MEDS ORDERED: metFORMIN 500 MG TAB PO SCH (11:00)
[2019-02-24] MEDS: HumaLOG 300 UNITS/3 ML VIAL SC PRN ×2 (11:30→20:55)
[2019-02-24] MEDS: Ondansetron ODT 4 MG TAB PO PRN ×2 (13:47→18:57)
--- NOTE | 2019-02-24 14:35 | PDOC.HOSPP ---
- Subjective Subjective: Seen and examined. Patient mood is much more's calm and stabilized since starting risperidone. Blood sugars are improving though he still will get spikes with frequent snacks and large meals. Increasing Metformin. Patient states that is been very constipated with very hard stools and he is straining to go to the bathroom. Patient states that he has hemorrhoids and occasionally bleed. Patient states that when he wiped he did see a little bit of blood on the toilet paper from bleeding hemorrhoids which has happened in the past. - Objective Vital Signs & Weight: Vital Signs (12 hours) Temp Pulse Resp BP Pulse Ox 02/24/19 07:24 97.8 F 74 19 103/68 96 Weight Admit Weight 125 lb 10.616 oz Weight 125 lb Most Recent Monitor Data Heart Rate from ECG 106 NIBP 129/85 NIBP BP-Mean 99 Respiration from ECG 16 SpO2 99 I&O: 02/23/19 02/24/19 02/25/19 06:59 06:59 06:59 Intake Total 1380 840 Balance 1380 840 Result Diagrams: 02/16/19 09:35 02/18/19 06:40 Additional Labs: Accuchecks 02/24/19 02/24/19 02/23/19 11:16 04:46 21:15 POC Glucose 311 H 172 H 221 H 02/23/19 02/23/19 16:48 11:19 POC Glucose 162 H 323 H Radiology Reviewed by me: Yes Hospitalist ROS - Review of Systems All other systems reviewed; all pertinent +/- noted in HPI/Subj - Medication Medications: Active Medications Generic Name Dose Route Start Last Admin Trade Name Vincenzo PRN Reason Stop Dose Admin Diphenhydramine HCl 25 mg 02/21/19 02:49 02/23/19 21:14 Benadryl PO 25 mg Q6H PRN Administration Itching & Insomnia Doxycycline Hyclate 100 mg 02/17/19 21:00 02/24/19 08:53 Vibramycin PO 100 mg BID PAULINO Administration Enoxaparin Sodium 40 mg 02/15/19 09:00 02/24/19 08:50 Lovenox SC Not Given 0900 PAULINO Famotidine 20 mg 02/15/19 09:00 02/24/19 09:10 Pepcid PO Not Given BID PAULINO Fluconazole 100 mg 02/18/19 09:00 02/24/19 08:53 Diflucan PO 100 mg DAILY PAULINO Administration Insulin Glargine 53 units/ 0.53 mls @ 0 mls/hr 02/23/19 21:00 02/24/19 08:52 Miscellaneous Medication SC 0.53 mls BID PAULINO Administration As Directed Insulin Human Lispro 0 units 02/16/19 17:02 02/24/19 11:30 Humalog SC 13 unit .AGGRESSIVE SLIDING PRN Administration Aggressive Correctional Scale Insulin Human Lispro 0 units 02/20/19 21:42 02/22/19 20:27 Humalog SC 5 units .BEDTIME SLIDING SC PRN Administration Bedtime Correctional Scale Lorazepam 1 mg 02/16/19 17:05 02/24/19 09:06 Ativan PO 1 mg Q6H PRN Administration Anxiety/Agitation Magnesium Oxide 400 mg 02/18/19 09:00 02/24/19 08:53 Magnesium Oxide PO 400 mg DAILY PAULINO Administration Nicotine 21 mg 02/19/19 22:30 02/23/19 21:13 Nicoderm Patch TOP 21 mg Q24HR PAULINO Administration Ondansetron HCl 4 mg 02/15/19 22:08 02/24/19 13:47 Zofran Odt PO 4 mg Q6H PRN Administration Nausea/Vomiting Rifampin 300 mg 02/17/19 22:00 02/24/19 08:53 Rifadin PO 300 mg 1000,2200 PAULINO Administration Risperidone 1 mg 02/23/19 21:00 02/24/19 08:52 Risperidone PO 1 mg BID PAULINO Administration - Exam General Appearance: NAD, awake alert Eye: anicteric sclera ENT: normocephalic atraumatic, moist mucosa Neck: supple, symmetric, no lymphadenopathy Heart: no murmur, no gallops Respiratory: CTAB, no wheezes, no rales, no ronchi Gastrointestinal: soft, non-tender, non-distended, normal bowel sounds, no palpable masses, no hepatomegaly Extremities: no edema Skin: no lesions, no rashes Neurological: cranial nerve grossly intact, no weakness Musculoskeletal: normal strength Psychiatric: normal affect, normal behavior, A&O x 3 Hosp A/P (1) Abscess of multiple sites Code(s): L02.91 - CUTANEOUS ABSCESS, UNSPECIFIED Status: Acute (2) Diabetic hyperosmolar non-ketotic state Code(s): E11.00 - TYPE 2 DIAB W HYPROSM W/O NONKET HYPRGLY-HYPROS COMA ([facility]) Status: Acute (3) Hypokalemia Code(s): E87.6 - HYPOKALEMIA Status: Acute (4) Hyponatremia Code(s): E87.1 - HYPO-OSMOLALITY AND HYPONATREMIA Status: Acute (5) Paraphimosis Code(s): N47.2 - PARAPHIMOSIS Status: Acute (6) Suicide attempt Status: Acute (7) Abscess Code(s): L02.91 - CUTANEOUS ABSCESS, UNSPECIFIED Status: Acute (8) Balanitis Code(s): N48.1 - BALANITIS Status: Acute (9) DKA (diabetic ketoacidosis) Code(s): E13.10 - OTH DIABETES MELLITUS WITH KETOACIDOSIS WITHOUT COMA Status : Acute (10) Methamphetamine abuse Code(s): F15.10 - OTHER STIMULANT ABUSE, UNCOMPLICATED Status: Acute (11) Alcohol abuse Code(s): F10.10 - ALCOHOL ABUSE, UNCOMPLICATED Status: Chronic (12) DM2 (diabetes mellitus, type 2) Status: Chronic (13) Polysubstance abuse Code(s): F19.10 - OTHER PSYCHOACTIVE SUBSTANCE ABUSE, UNCOMPLICATED Status: Chronic (14) Tobacco dependence Code(s): F17.200 - NICOTINE DEPENDENCE, UNSPECIFIED, UNCOMPLICATED Status: Chronic (15) Uncontrolled type 2 diabetes mellitus with peripheral neuropathy Code(s): E11.42 - TYPE 2 DIABETES MELLITUS WITH DIABETIC POLYNEUROPATHY; E11.65 - TYPE 2 DIABETES MELLITUS WITH HYPERGLYCEMIA Status: Chronic (16) GAURANG (acute kidney injury) Code(s): N17.9 - ACUTE KIDNEY FAILURE, UNSPECIFIED Status: Resolved - Plan Plan: medical unit infectious disease consultation, recommendations appreciated patient responding to maximal medical therapy antibiotics are being effective blood cultures negative Increased Lantus to 55 units BID Increase Metformin 1000mg ER BID short acting insulin for improved glucose control Needs CONSISTENT oral intake for proper insulin adjustment, no skipping meals or extra portions/ very large meals patient tells me his hemoglobin A1c is greater than 12 Continue Risperidone for mood stabilization blood pressure control replace electrolytes as needed blood work requested by drug and alcohol program disposition: patient is pending insurance approval for transfer to inpatient psychiatric facility, he will then go to inpatient detox in [place].
[2019-02-24] MEDS ORDERED: Hydrocortisone Acetate 25 MG Suppository PR PRN (14:38)
[2019-02-24] MEDS: Docusate 100 MG CAP PO SCH (20:54)
[2019-02-24] MEDS: Nicotine 21 MG PATCH TOP SCH (20:54)
[2019-02-24] MEDS: diphenhydrAMINE 25 MG CAP PO PRN (20:54)
[2019-02-24] MEDS: Insulin Glargine 55 UNITS in Pre-Filled Syringe 1 EACH SC SCH (20:55)
[2019-02-25] MEDS: Fluconazole 100 MG TAB PO SCH (08:54)
[2019-02-25] MEDS: risperiDONE 1 MG TAB PO SCH (08:55)
[2019-02-25] MEDS: Rifampin 300 MG CAP PO SCH (08:55)
[2019-02-25] MEDS: metFORMIN 500 MG TAB PO SCH (08:55)
[2019-02-25] MEDS: Magnesium Oxide 400 MG TAB PO SCH (08:56)
[2019-02-25] MEDS: Docusate 100 MG CAP PO SCH (08:56)
[2019-02-25] MEDS: Doxycycline 100 MG CAP PO SCH (08:56)
[2019-02-25] MEDS: Lorazepam 1 MG TAB PO PRN (08:57)
[2019-02-25] MEDS: Insulin Glargine 55 UNITS in Pre-Filled Syringe 1 EACH SC SCH (08:58)
[2019-02-25] MEDS ORDERED: HumaLOG 300 UNITS/3 ML VIAL SC SCH (09:00)
[2019-02-25] MEDS: Enoxaparin Sodium 40 MG/0.4 ML SYRINGE SC SCH (09:03)
[2019-02-25] MEDS: Famotidine 20 MG TAB PO SCH (09:04)
[2019-02-25 09:26] VITALS: BP 98/66; TEMP 98
--- NOTE | 2019-02-25 12:19 | PDOC.HOSPP ---
- Objective Vital Signs & Weight: Vital Signs (12 hours) Temp Pulse Resp BP Pulse Ox 02/25/19 09:25 98.0 F 86 18 98/66 99 Weight Admit Weight 125 lb 10.616 oz Weight 125 lb Most Recent Monitor Data Heart Rate from ECG 106 NIBP 129/85 NIBP BP-Mean 99 Respiration from ECG 16 SpO2 99 I&O: 02/24/19 02/25/19 02/26/19 06:59 06:59 06:59 Intake Total 840 Balance 840 Result Diagrams: 02/16/19 09:35 02/18/19 06:40 Additional Labs: Accuchecks 02/25/19 02/24/19 02/24/19 04:21 20:43 15:28 POC Glucose 131 H 297 H 186 H Hospitalist ROS - Medication Medications: Active Medications Generic Name Dose Route Start Last Admin Trade Name Freq PRN Reason Stop Dose Admin Diphenhydramine HCl 25 mg 02/21/19 02:49 02/24/19 20:54 Benadryl PO 25 mg Q6H PRN Administration Itching & Insomnia Docusate Sodium 100 mg 02/24/19 21:00 02/25/19 08:56 Colace PO 100 mg BID PAULINO Administration Doxycycline Hyclate 100 mg 02/17/19 21:00 02/25/19 08:56 Vibramycin PO 100 mg BID PAULINO Administration Enoxaparin Sodium 40 mg 02/15/19 09:00 02/25/19 09:03 Lovenox SC Not Given 0900 PAULINO Famotidine 20 mg 02/15/19 09:00 02/25/19 09:04 Pepcid PO Not Given BID PAULINO Fluconazole 100 mg 02/18/19 09:00 02/25/19 08:54 Diflucan PO 100 mg DAILY PAULINO Administration Insulin Glargine 55 units/ 0.55 mls @ 0 mls/hr 02/24/19 21:00 02/25/19 08:58 Miscellaneous Medication SC 0.55 mls BID PAULINO Administration As Directed Insulin Human Lispro 0 units 02/16/19 17:02 02/24/19 11:30 Humalog SC 11 unit .AGGRESSIVE SLIDING PRN Administration Aggressive Correctional Scale Insulin Human Lispro 0 units 02/20/19 21:42 02/24/19 20:55 Humalog SC 3 units .BEDTIME SLIDING SC PRN Administration Bedtime Correctional Scale Insulin Human Lispro 8 units 02/25/19 09:00 02/25/19 08:59 Humalog SC 8 unit TID PAULINO Administration Lorazepam 1 mg 02/16/19 17:05 02/25/19 08:57 Ativan PO 1 mg Q6H PRN Administration Anxiety/Agitation Magnesium Oxide 400 mg 02/18/19 09:00 02/25/19 08:56 Magnesium Oxide PO 400 mg DAILY PAULINO Administration Metformin HCl 1,000 mg 02/24/19 17:00 02/25/19 08:55 Glucophage PO 1,000 mg BID-WM PAULINO Administration Nicotine 21 mg 02/19/19 22:30 02/24/19 20:54 Nicoderm Patch TOP 21 mg Q24HR PAULINO Administration Ondansetron HCl 4 mg 02/15/19 22:08 02/24/19 18:57 Zofran Odt PO 4 mg Q6H PRN Administration Nausea/Vomiting Rifampin 300 mg 02/17/19 22:00 02/25/19 08:55 Rifadin PO 300 mg 1000,2200 PAULINO Administration Risperidone 1 mg 02/23/19 21:00 02/25/19 08:55 Risperidone PO 1 mg BID PAULINO Administration Hosp A/P (1) Abscess of multiple sites Code(s): L02.91 - CUTANEOUS ABSCESS, UNSPECIFIED Status: Acute (2) Diabetic hyperosmolar non-ketotic state Code(s): E11.00 - TYPE 2 DIAB W HYPROSM W/O NONKET HYPRGLY-HYPROS COMA ([facility]) Status: Acute (3) Hypokalemia Code(s): E87.6 - HYPOKALEMIA Status: Acute (4) Hyponatremia Code(s): E87.1 - HYPO-OSMOLALITY AND HYPONATREMIA Status: Acute (5) Paraphimosis Code(s): N47.2 - PARAPHIMOSIS Status: Acute (6) Suicide attempt Status: Acute (7) Abscess Code(s): L02.91 - CUTANEOUS ABSCESS, UNSPECIFIED Status: Acute (8) Balanitis Code(s): N48.1 - BALANITIS Status: Acute (9) DKA (diabetic ketoacidosis) Code(s): E13.10 - OTH DIABETES MELLITUS WITH KETOACIDOSIS WITHOUT COMA Status : Acute (10) Methamphetamine abuse Code(s): F15.10 - OTHER STIMULANT ABUSE, UNCOMPLICATED Status: Acute (11) Alcohol abuse Code(s): F10.10 - ALCOHOL ABUSE, UNCOMPLICATED Status: Chronic (12) DM2 (diabetes mellitus, type 2) Status: Chronic (13) Polysubstance abuse Code(s): F19.10 - OTHER PSYCHOACTIVE SUBSTANCE ABUSE, UNCOMPLICATED Status: Chronic (14) Tobacco dependence Code(s): F17.200 - NICOTINE DEPENDENCE, UNSPECIFIED, UNCOMPLICATED Status: Chronic (15) Uncontrolled type 2 diabetes mellitus with peripheral neuropathy Code(s): E11.42 - TYPE 2 DIABETES MELLITUS WITH DIABETIC POLYNEUROPATHY; E11.65 - TYPE 2 DIABETES MELLITUS WITH HYPERGLYCEMIA Status: Chronic (16) GAURANG (acute kidney injury) Code(s): N17.9 - ACUTE KIDNEY FAILURE, UNSPECIFIED Status: Resolved - Plan Plan: medical unit infectious disease consultation, recommendations appreciated patient responding to maximal medical therapy antibiotics are being effective blood cultures negative Increased Lantus to 55 units BID Increase Metformin 1000mg ER BID short acting insulin for improved glucose control Needs CONSISTENT oral intake for proper insulin adjustment, no skipping meals or extra portions/ very large meals patient tells me his hemoglobin A1c is greater than 12 Continue Risperidone for mood stabilization blood pressure control replace electrolytes as needed blood work requested by drug and alcohol program disposition: patient is pending insurance approval for transfer to inpatient psychiatric facility, he will then go to inpatient detox in [place].
--- NOTE | 2019-02-26 01:05 | DIS ---
DATE OF ADMISSION: 02/14/2019 DATE OF DISCHARGE: 02/25/2019 REASON FOR HOSPITALIZATION: Suicide attempt. SIGNIFICANT FINDINGS: The patient was found to have severely uncontrolled diabetes mellitus and required daily adjustment of diabetic regimen. The patient was found to have infections requiring treatment by Infectious Disease specialist, which had a good response to medications and was transitioned to oral antibiotics appropriately. PROCEDURES PERFORMED AND TREATMENTS RENDERED: The patient was admitted to the hospital for close management. The patient presented to [facility] in [place], [place] on 02/15/2019, after he attempted to hang himself. The patient has a history of polysubstance abuse including methamphetamines and several other drugs. The patient has been to alf and states that he has been taking all sorts of drugs his whole life. The patient was found to have multiple skin abscesses that were drained and then was growing methicillin-resistant Staphylococcus aureus. The patient was seen and evaluated by Infectious Disease specialist, please see full consultation notes and progress notes for details. Infectious Disease specialist titrating antibiotics appropriately and he was recommended safe for transition to oral antibiotics. The patient to complete a full 14-day course of antibiotics per Infectious Disease specialist recommendations. The patient also with fungal infection in the penis, history of being uncircumcised and chronic urinary issues, for which he follows up with Dr. Poole, his urologist. The patient will follow up with Dr. Poole in the outpatient setting in the upcoming weeks. The patient had difficult to control blood sugars and he required daily adjustments of his diabetes regimen. The patient's hemoglobin A1c greater than 12.5, and he has not taken any medications for diabetes in the past three or four months. When blood sugars were controlled, the patient was recommended safe for discharge to mental health facility. I discussed the case with physician at [facility] and conveyed the importance of completing a full course of oral antibiotics. The patient was also given strict instructions on calorie intake and diabetic diet, which he has not been following and this is recommended to change if he would like to continue to be in good health. The patient was safely discharged to [facility] on 02/25/2019 for further inpatient psychiatric care. CONDITION ON DISCHARGE: Stable. SPECIFIC INSTRUCTIONS FOR THE PATIENT/FAMILY: 1. The patient recommended safe for discharge to [facility]. 2. The patient is recommended to complete a full course of inpatient psychiatric care. 3. The patient is recommended to have a strict diabetic diet. 4. The patient is recommended to complete a full course of oral antibiotics as directed by Infectious Disease specialist. 5. The patient recommended to abstain from methamphetamine use and all drug use in addition to alcohol. 6. The patient tells me he has plans to follow up with drug and alcohol program in [place] after he is released from [facility] and I encouraged him to seek the help that he needs. DISCHARGE MEDICATIONS: 1. Risperidone 1 tablet p.o. b.i.d. 2. Metformin 1000 mg one tablet p.o. b.i.d. 3. Rifampin 300 mg one tablet p.o. b.i.d. for the next 7 days, 14 tablets. 4. Doxycycline 100 mg one tablet p.o. b.i.d. for the next 7 days, 14 tablets. 5. Zofran 4 mg p.o. q.6 hours p.r.n. nausea or vomiting. 6. Nicoderm CQ 21 mg topical patch q.24 hours. 7. Lantus 55 units subcutaneous injection b.i.d. 8. Hydrocortisone acetate (Anusol) 25 mg per rectum b.i.d. p.r.n. hemorrhoids. 9. Humalog 8 units subcutaneous injection t.i.d. before meals-this medication is to be titrated up over the following days for adequate blood sugar control. 10. Humalog [id number]-[id number]-to be used after meals. 11. Humalog sliding scale at bedtime. 12. Fluconazole 100 mg one tablet p.o. daily for the next 7 days, seven tablets. 13. Famotidine 20 mg one tablet p.o. b.i.d. 14. Docusate 100 mg one tablet p.o. b.i.d. TIME SPENT: Greater than 39 minutes spent coordinating care and discharge process for this patient. Job ID: [id number]
[2019-02-26] MEDS ORDERED: READ PPD TEST SITE PO SCH (09:00)
--- NOTE | 2019-02-27 05:03 | PQF ---
SAP Maintainability Engineer Crystal Reports Winform ViewerJIGNESH DILLARD ERIK [id number] CLINICAL DOCUMENTATION CLARIFICATION FORM: POST DISCHARGE Addendum to original discharge summary date: ____ Late entry note date: __ DATE: 02/27/2019 ATTN:KENYETTA MUNGUIA Please exercise your independent, professional judgment in responding to the clarification form. Clinical indicators are provided on the bottom of this form for your review Please check appropriate box(s) to clarify if the following diagnosis has been ruled in or ruled out: ___SEPSIS (CDI/Coding list diagnosis here) [ ] Ruled in diagnosis [ ] Continue to treat [ ] Resolved [ ] Ruled out diagnosis [ ] Cannot rule out diagnosis [ ] Other diagnosis [ ] Unable to determine In addition, please specify: Present on Admission (POA): [ ] Yes [ ] No [ ] Unable to determine For continuity of documentation, please document condition throughout progress notes and discharge summary. Thank You. CLINICAL INDICATORS - SIGNS / SYMPTOMS / LABS Sepsis - Documented in ED report pg#9 Elevated Lactic acid 5.5 on 02/14 and 3.2 on 02/15 - Documented in Laboratory Pulse rate 106 on 02/18 and 108 on 02/19 - Documented in Vital signs Hypothermia - Documented in H&P on 02/15 by Robson Gamble [employer] GAURANG Suicidal Ideation Skin Abscess - Documented in H&P on 02/15 by Robson Gamble TREATMENTS Continue IV antibiotics - Documented in Hospital PNs on 02/16 by Johnathan Thomas Vancomycin - Medication report Rocephin 2gm - Medication report Blood culture negative SAP Maintainability Engineer Crystal Reports Winform Viewer (This form is maintained as a part of the permanent medical record) 2014 [employer]. All Rights Reserved Kun [email or web address] [not provided] [email or web address]
== END 2019-02-25 15:39 | disposition short-term general hospital (02) | DRG 638 ==
LOC: ERS 21:19 → ERHOLD 23:57 → CCU 02-15 04:18 → T4-B 02-16 15:05
PROVIDERS: ADMIT Internal Medicine; ATTEND Internal Medicine
DX: E11.00 Type 2 diabetes mellitus with hyperosmolarity without nonketotic hyperglycemic-hyperosmolar coma (NKHHC) (principal); T71.162A Asphyxiation due to hanging, intentional self-harm, initial encounter; E87.1 Hypo-osmolality and hyponatremia; L02.91 Cutaneous abscess, unspecified; N17.9 Acute kidney failure, unspecified; Z88.5 Allergy status to narcotic agent; Z88.8 Allergy status to other drugs, medicaments and biological substances; Z91.013 Allergy to seafood; Z98.890 Other specified postprocedural states; F41.9 Anxiety disorder, unspecified; F32.9 Major depressive disorder, single episode, unspecified; E03.9 Hypothyroidism, unspecified; Z91.14 Patient's other noncompliance with medication regimen; F15.10 Other stimulant abuse, uncomplicated; N47.1 Phimosis; N48.1 Balanitis; F19.10 Other psychoactive substance abuse, uncomplicated; E87.6 Hypokalemia; Z59.0 Homelessness; Z91.041 Radiographic dye allergy status; Z90.49 Acquired absence of other specified parts of digestive tract; B95.62 Methicillin resistant Staphylococcus aureus infection as the cause of diseases classified elsewhere; X83.8XXA Intentional self-harm by other specified means, initial encounter; F17.210 Nicotine dependence, cigarettes, uncomplicated
CPT/HCPCS: 36415; 36416; 80053; 80069; 80074; 80202; 80306; 80307; 81003; 82010; 82330; 82803; 83605; 83735; 83930; 84443; 85025; 85027; 86580; 87040; 87086; 87389; 93005; 93306; 96365; 96366; 96368; J0696; J1650; J1815; J3370; J3480; J3490; J7050; Q0162; Q0163

== ENCOUNTER 2019-03-23 00:13 | Emergency (ER) | payer OTHER, SELFPAY ==
[2019-03-23] MEDS ORDERED: Acetaminophen 500 MG TAB ONE (00:42)
[2019-03-23 01:20] LABS: #Basophils 0.1 thou/uL (0.0-0.2); #Eosinphils 0.2 thou/uL (0.0-0.7); #Lymphocytes 2.8 thou/uL (1.20-3.40); #Monocytes 0.5 thou/uL (0.11-0.59); #Neutrophils 2.2 thou/uL (1.40-6.50); %Basophils 1.1 % (0.0-1.0); %Eosinophils 2.9 % (0.0-10.0); %Lymphocytes 48.4 % (21.0-51.0); %Monocytes 8.8 % (0.0-10.0); %Neutrophils 38.8 % (42.0-75.0); Mean Corpuscular HGB CONC 34.8 g/dL (32.0-36.0); Mean Corpuscular Hemoglobin 30.8 pg (27.0-31.0); Mean Corpuscular Volume 88.3 fL (78.0-98.0); Mean Platelet Volume 6.4 fL (7.4-10.4); Platelet Count 263 thou/uL (130-400); RBC Distribution Width 12.2 % (11.5-14.5); Red Blood Cell (RBC) Count 4.89 mill/uL (4.70-6.10); White Blood Cell (WBC) Count 5.7 thou/uL (4.8-10.8)
[2019-03-23 01:23] LABS: Bilirubin Negative (Negative); Blood, Urine Negative (Negative); Clarity Clear (Clear); Glucose, Urine (Dipstick) >=1000 mg/dL (Negative); Leukocyte Negative Leu/uL (Negative); Nitrite Negative (Negative); Protein, Urine (Dipstick) Negative (Neg-Trace); Urobilinogen Normal mg/dL (Less than 2)
[2019-03-23 01:32] LABS: Amphetamine Not Detected (NotDetected); Barbiturates Screen Not Detected (NotDetected); Benzodiazepine Screen Not Detected (NotDetected); Cocaine Metabolite Screen Not Detected (NotDetected); Medtox Control Line Valid? VALID (VALID); Medtox Reader # READER 4; Methadone Not Detected (NotDetected); Methamphetamine Not Detected (NotDetected); Opiate Screen Not Detected (NotDetected); Oxycodone Screen Not Detected (NotDetected); Phencyclidine (PCP) Not Detected (NotDetected); THC/Cannabinoid Screen Not Detected (NotDetected); Tricyclic Screen Not Detected (NotDetected)
[2019-03-23 01:42] LABS: ALT (SGPT) 11 U/L (8-55); AST (SGOT) 11 U/L (5-34); Albumin 4.1 g/dL (3.5-5.0); Alkaline Phosphatase 98 U/L (40-110); Anion Gap 12 mmol/L (10-20); BUN (Urea Nitrogen) 11 mg/dL (8.9-20.6); Bilirubin, Total 0.5 mg/dL (0.2-1.2); CK (CPK) 43 U/L (30-200); Calc. Creatinine Clearance 0 mL/min (70-130); Calcium 9.2 mg/dL (7.8-10.44); Carbon Dioxide 26 mmol/L (22-29); Chloride 101 mmol/L (98-107); Estimated GFR-MDRD Greater than 90; Globulin 3.9 g/dL (2.4-3.5); Glucose 210 mg/dL (70-105); Sodium 135 mmol/L (136-145)
--- NOTE | 2019-03-23 07:26 | CT ---
PRELIMINARY REPORT/[facility]/EMERGENCY AFTER HOURS PROCEDURE: This report was discussed with Manuel Wilson (Resident) by Susan Fenton on Mar 23, 2019 01:11 :00 COUNSELING DEPARTMENT CHAIR. Addendum electronically signed by Susan Fenton on March 23, 2019 1:12:23 AM COUNSELING DEPARTMENT CHAIR EXAM: CT Head Without Intravenous Contrast. CLINICAL HISTORY: Patient presents for evaluation of seizure. Seizure quality described as grand-mal, multiple episode s, Pain is dull in nature, described as aching. TECHNIQUE: Axial computed tomography images of the head/brain without intravenous contrast. COMPARISON: None provided. FINDINGS: BRAIN: No acute intraparenchymal hemorrhage. No mass lesion. Nonspecific hypodensity within the infe rior right temporal lobe. No midline shift or extra-axial collection. VENTRICLES: No hydrocephalus. ORBITS: The orbits are unremarkable. SINUSES AND MASTOIDS: The paranasal sinuses and mastoid air cells are clear. SOFT TISSUES: No significant facial or scalp soft tissue swelling evident. No radiopaque foreign body is seen. BONES: No acute skull fracture. IMPRESSION: Nonspecific hypodensity within the inferior right temporal lobe which could be normal related to beam hardening artifact, infectious or inflammatory or ischemic. Recommend further evaluation with MRI w ith contrast. ELECTRONICALLY SIGNED BY: Troy Chakraborty M.D. Mar 23, 2019 1:05:57 AM COUNSELING DEPARTMENT CHAIR This report is intended for review by the ordering physician only, in accordance of law. If you recei ve this report in error, please call [facility] at [phone]. FINAL REPORT EMERGENCY AFTER HOURS CT BRAIN WITHOUT CONTRAST: COMPARISON: 07/19/2018. FINDINGS/IMPRESSION: I agree with the findings and impression given in the preliminary report per [facility] physici an. There is questionable hypodensity in the inferior right temporal lobe. This is likely artifactual and a MRI may be helpful for further characterization.
--- NOTE | 2019-03-23 08:29 | MRI ---
PRELIMINARY REPORT/[facility]/EMERGENCY AFTER HOURS PROCEDURE: EXAM: MR Brain with and without Intravenous Contrast. CLINICAL HISTORY: EMERGENCY EXAM...STAT...PT STATES HE HAS A HX OF SEIZURES AND WAS BROUGHT IN TO THE ER FOR A LONGER T MORELOS AVERAGE SEIZURE THAT LASTED FOR 10 MINS. PT STATES A WEEK AND A HALF AGO HE HAD A SEIZURE IN A [facility] AND HE HIT HIS HEAD ON A METAL CHAIR AND LOSS CONSIOUCNESS. ALSO, PT COMPLAINS OF HEADACHES THAT HAVE WORSENED SINCE HITTING HIS HEAD DURING SEIZURE A WEEK AND A HALF AGO. PT STATES NO BRAIN SX . NO PRIOR BRAIN MRI DONE HERE. PRIOR BRAIN CT DONE HERE 03/23/19, 2018, AND 2009. PT INJECTED WITH 13 MLS OF MULTIHANCE. CREATININE: 0.71 GFR: >90 COLLECTED 03/23/19...TECH/NOTES MBG. TECHNIQUE: Magnetic resonance images of the brain with and without intravenous contrast in multiple planes. CONTRAST: With and without; 13ml Multihance COMPARISON: None provided. FINDINGS: BRAIN: No restricted diffusion to indicate acute infarction. No intracranial mass or hemorrhage. No m idline shift or extra-axial fluid collection. No cerebellar tonsillar ectopia. No abnormal enhancemen t. The central arterial and venous flow voids are patent. VENTRICLES: No hydrocephalus. ORBITS: The orbits are normal. SINUSES AND MASTOIDS: The sinuses and mastoid air cells are clear. BONES: No acute fracture or focal osseous lesion. IMPRESSION: Unremarkable brain MRI. ELECTRONICALLY SIGNED BY: Troy Chakraborty M.D. Mar 23, 2019 3:38:10 AM HOMICIDE SQUAD COMMANDING OFFICER This report is intended for review by the ordering physician only, in accordance of law. If you recei ve this report in error, please call [facility] at [phone]. FINAL REPORT EMERGENT AFTER HOURS MRI OF THE BRAIN WITHOUT AND WITH CONTRAST: FINDINGS/IMPRESSION: I agree with the findings and impression given in the preliminary report per [facility] physici an. No significant intracranial abnormality. POS: CET
== END 2019-03-23 03:59 | disposition home or self-care (01) ==
LOC: ERS 00:13
DX: R56.9 Unspecified convulsions (principal); F41.9 Anxiety disorder, unspecified; F32.9 Major depressive disorder, single episode, unspecified; E10.40 Type 1 diabetes mellitus with diabetic neuropathy, unspecified; I10 Essential (primary) hypertension; K74.60 Unspecified cirrhosis of liver; F17.210 Nicotine dependence, cigarettes, uncomplicated; Z79.4 Long term (current) use of insulin
CPT/HCPCS: 70450; 70553; 80053; 80306; 81003; 82550; 85025; 96360

== ENCOUNTER 2019-04-03 23:37 | Emergency (ER) | payer SELFPAY ==
[2019-04-04 00:39] LABS: Bilirubin Negative (Negative); Blood, Urine Negative (Negative); Clarity Turbid (Clear); Glucose, Urine (Dipstick) Greater than 1000 mg/dL (Negative); Leukocyte Negative Leu/uL (Negative); Nitrite Negative (Negative); Protein, Urine (Dipstick) Negative (Neg-Trace)
== END 2019-04-04 01:03 | disposition home or self-care (01) ==
LOC: ERS 23:37
DX: R10.30 Lower abdominal pain, unspecified (principal); M62.830 Muscle spasm of back; M54.6 Pain in thoracic spine; K74.60 Unspecified cirrhosis of liver; I10 Essential (primary) hypertension; F41.9 Anxiety disorder, unspecified; F32.9 Major depressive disorder, single episode, unspecified; F17.210 Nicotine dependence, cigarettes, uncomplicated; Z79.4 Long term (current) use of insulin
CPT/HCPCS: 36416; 81003; 99283

== ENCOUNTER 2019-04-08 16:57 | Emergency (ER) | payer SELFPAY | END 2019-04-08 18:44 | disposition left against medical advice (07) | LOC: ERS 16:57 | DX: Z53.21 Procedure and treatment not carried out due to patient leaving prior to being seen by health care provider (principal) ==

== ENCOUNTER 2019-07-04 10:31 | Emergency (ER) | payer SELFPAY ==
[2019-07-04 11:16] LABS: #Basophils 0.1 thou/uL (0.0-0.2); #Lymphocytes 1.8 thou/uL (1.20-3.40); #Monocytes 0.3 thou/uL (0.11-0.59); %Basophils 1.1 % (0.0-1.0); %Eosinophils 0.5 % (0.0-10.0); %Lymphocytes 29.3 % (21.0-51.0); %Monocytes 5.1 % (0.0-10.0); %Neutrophils 64.1 % (42.0-75.0); Hemoglobin 16.5 g/dL (14.0-18.0); Mean Corpuscular HGB CONC 34.9 g/dL (32.0-36.0); Mean Corpuscular Hemoglobin 30.4 pg (27.0-31.0); Mean Corpuscular Volume 86.9 fL (78.0-98.0); Mean Platelet Volume 6.7 fL (7.4-10.4); Platelet Count 254 thou/uL (130-400); RBC Distribution Width 12.4 % (11.5-14.5); Red Blood Cell (RBC) Count 5.42 mill/uL (4.70-6.10); White Blood Cell (WBC) Count 6.2 thou/uL (4.8-10.8)
[2019-07-04 11:21] LABS: Bilirubin Negative (Negative); Blood, Urine Negative (Negative); Clarity Clear (Clear); Glucose, Urine (Dipstick) Greater than 1000 mg/dL (Negative); Leukocyte Negative Leu/uL (Negative); Nitrite Negative (Negative); Protein, Urine (Dipstick) Negative (Neg-Trace); Urobilinogen Normal mg/dL (Less than 2)
[2019-07-04 11:33] LABS: Bicarbonate (HCO3v) 26.7 mmol/L (22.0-28.0); CO2 Tension (PvCO2) 50.2 mmHg (40.0-50.0); Calcium, Ionized 1.02 mmol/L (See Comments:); Chloride 95 mmol/L (98-107); Potassium 4.7 mmol/L (3.5-5.1); Sodium 129 mmol/L (138-145); T. Carbon Dioxide 28.3 mmol/L (22.0-28.0); vO2 Saturation-calc 95.4 % (60.0-85.0)
[2019-07-04 11:41] LABS: ALT (SGPT) 7 U/L (8-55); AST (SGOT) 10 U/L (5-34); Albumin 4.2 g/dL (3.5-5.0); Alkaline Phosphatase 118 U/L (40-110); Anion Gap 17 mmol/L (10-20); BUN (Urea Nitrogen) 11 mg/dL (8.9-20.6); Bilirubin, Total 0.8 mg/dL (0.2-1.2); Calc. Creatinine Clearance 0 mL/min (70-130); Calcium 9.2 mg/dL (7.8-10.44); Carbon Dioxide 24 mmol/L (22-29); Chloride 92 mmol/L (98-107); Estimated GFR-MDRD Greater than 90; Globulin 3.8 g/dL (2.4-3.5); Glucose 487 mg/dL (70-105); Lipase 15 U/L (8-78); Magnesium 1.8 mg/dL (1.6-2.6); Phosphorus 3.8 mg/dL (2.3-4.7); Potassium 4.2 mmol/L (3.5-5.1); Sodium 129 mmol/L (136-145)
[2019-07-04] MEDS ORDERED: Ondansetron PF 4 MG/2 ML Vial ONE (11:43)
[2019-07-04] MEDS ORDERED: Insulin Regular 300 UNITS/3 ML VIAL ONE (11:43)
== END 2019-07-04 12:41 | disposition home or self-care (01) ==
LOC: ERS 10:31
DX: E10.65 Type 1 diabetes mellitus with hyperglycemia (principal); E10.40 Type 1 diabetes mellitus with diabetic neuropathy, unspecified
CPT/HCPCS: 36416; 80053; 81003; 82010; 82330; 82803; 83690; 83735; 84100; 85025; 96361; 96374; 96375; J1815; J2405

== ENCOUNTER 2019-07-09 20:50 | Emergency (ER) | payer SELFPAY ==
[2019-07-09] MEDS ORDERED: Lorazepam 2 MG/ML VIAL ONE (21:26)
[2019-07-09 21:47] LABS: #Basophils 0.1 thou/uL (0.0-0.2); #Eosinphils 0.1 thou/uL (0.0-0.7); #Lymphocytes 2.5 thou/uL (1.20-3.40); #Monocytes 0.4 thou/uL (0.11-0.59); #Neutrophils 3.4 thou/uL (1.40-6.50); %Eosinophils 1.8 % (0.0-10.0); %Lymphocytes 38.9 % (21.0-51.0); %Monocytes 6.1 % (0.0-10.0); %Neutrophils 52.2 % (42.0-75.0); Hemoglobin 15.1 g/dL (14.0-18.0); Mean Corpuscular HGB CONC 35.1 g/dL (32.0-36.0); Mean Corpuscular Hemoglobin 30.9 pg (27.0-31.0); Mean Corpuscular Volume 88.2 fL (78.0-98.0); Mean Platelet Volume 6.6 fL (7.4-10.4); Platelet Count 265 thou/uL (130-400); Red Blood Cell (RBC) Count 4.88 mill/uL (4.70-6.10); White Blood Cell (WBC) Count 6.5 thou/uL (4.8-10.8)
[2019-07-09 22:13] LABS: ALT (SGPT) 8 U/L (8-55); AST (SGOT) 12 U/L (5-34); Albumin 3.8 g/dL (3.5-5.0); Alkaline Phosphatase 110 U/L (40-110); Anion Gap 15 mmol/L (10-20); BUN (Urea Nitrogen) 11 mg/dL (8.9-20.6); Bilirubin, Total 0.6 mg/dL (0.2-1.2); Calc. Creatinine Clearance 0 mL/min (70-130); Calcium 8.5 mg/dL (7.8-10.44); Carbon Dioxide 23 mmol/L (22-29); Chloride 98 mmol/L (98-107); Estimated GFR-MDRD Greater than 90; Globulin 3.7 g/dL (2.4-3.5); Glucose 413 mg/dL (70-105); Potassium 3.7 mmol/L (3.5-5.1); Protein, Total 7.5 g/dL (6.0-8.3); Sodium 132 mmol/L (136-145)
[2019-07-09] MEDS ORDERED: Insulin Regular 300 UNITS/3 ML VIAL ONE (22:39)
--- NOTE | 2019-07-11 16:10 | EKG ---
Test Reason : DRUG USE / AMS Blood Pressure : / mmHG Vent. Rate : 092 BPM Atrial Rate : 092 BPM P-R Int : 130 ms QRS Dur : 092 ms QT Int : 344 ms P-R-T Axes : 058 -04 052 degrees QTc Int : 425 ms Normal sinus rhythm Normal ECG Confirmed by OSCAR MALDONADO DO ([id number]), health editor CAL GUY ([id number]) on 07/11/2019 4:09:16 PM Referred By: Confirmed By:OSCAR MALDONADO DO
== END 2019-07-09 23:52 | disposition home or self-care (01) ==
LOC: ERS 20:50
DX: F15.10 Other stimulant abuse, uncomplicated (principal); E11.65 Type 2 diabetes mellitus with hyperglycemia; E11.40 Type 2 diabetes mellitus with diabetic neuropathy, unspecified; F32.9 Major depressive disorder, single episode, unspecified; F41.9 Anxiety disorder, unspecified; Z79.899 Other long term (current) drug therapy
CPT/HCPCS: 36416; 80053; 85025; 93005; 96361; 96374; J1815; J2060

== ENCOUNTER 2019-12-18 19:20 | Inpatient (IN) | payer OTHER, SELFPAY ==
[2019-12-18] MEDS ORDERED: Acetaminophen 500 MG TAB ONE (19:50)
[2019-12-18] MEDS ORDERED: Azithromycin 250 MG TAB ONE (19:50)
[2019-12-18] MEDS ORDERED: cefTRIAXone\\ROCEPHIN 1 GM VIAL ONE (19:50)
[2019-12-18] MEDS ORDERED: Ziprasidone 20 MG CAP ONE (20:12)
[2019-12-18 20:51] LABS: #Basophils 0.1 thou/uL (0.0-0.2); #Eosinphils 0.1 thou/uL (0.0-0.7); #Lymphocytes 1.6 thou/uL (1.20-3.40); #Monocytes 0.7 thou/uL (0.11-0.59); %Basophils 0.6 % (0.0-1.0); %Eosinophils 0.5 % (0.0-10.0); %Lymphocytes 14.2 % (21.0-51.0); %Neutrophils 78.7 % (42.0-75.0); Hemoglobin 16.5 g/dL (14.0-18.0); Mean Corpuscular HGB CONC 34.3 g/dL (32.0-36.0); Mean Corpuscular Hemoglobin 28.6 pg (27.0-31.0); Mean Corpuscular Volume 83.5 fL (78.0-98.0); Mean Platelet Volume 6.6 fL (7.4-10.4); Platelet Count 322 thou/uL (130-400); RBC Distribution Width 12.3 % (11.5-14.5); Red Blood Cell (RBC) Count 5.75 mill/uL (4.70-6.10); White Blood Cell (WBC) Count 11.5 thou/uL (4.8-10.8)
[2019-12-18 21:19] LABS: ALT (SGPT) 10 U/L (8-55); AST (SGOT) 10 U/L (5-34); Albumin 4.2 g/dL (3.5-5.0); Alkaline Phosphatase 150 U/L (40-110); Anion Gap 14 mmol/L (10-20); BUN (Urea Nitrogen) 11 mg/dL (8.9-20.6); Bilirubin, Total 1.2 mg/dL (0.2-1.2); Calc. Creatinine Clearance 0 mL/min (70-130); Calcium 9.5 mg/dL (7.8-10.44); Carbon Dioxide 24 mmol/L (22-29); Chloride 93 mmol/L (98-107); Estimated GFR-MDRD Greater than 90; Globulin 4.2 g/dL (2.4-3.5); Glucose 354 mg/dL (70-105); Lipase 9 U/L (8-78); Potassium 4.1 mmol/L (3.5-5.1); Protein, Total 8.4 g/dL (6.0-8.3); Sodium 127 mmol/L (136-145)
[2019-12-18 21:20] LABS: Acetaminophen Less than 6.0 mcg/mL (10.0-30.0); Alcohol Less than 10 mg/dL (Less than 10); Salicylate Less than 8.0 mg/dL (15.0-30.0)
[2019-12-18] MEDS ORDERED: Clotrimazole 1% Cream 15 GM TUBE TOP SCH (22:00)
[2019-12-18] MEDS ORDERED: Clotrimazole 1 % Cream 30 GM TUBE TOP SCH (22:00)
[2019-12-18] MEDS ORDERED: Vancomycin 1.5 GRAM/300 ML BAG 1.5 GM in Premix Bag 1 BAG IVPB SCH (22:00)
--- NOTE | 2019-12-18 22:14 | PDOC.HHP ---
Hospitalist HPI - History of Present Illness Right hand swelling History of Present Illness: PCP: None The patient is a 39-year-old male with a past medical history significant for diabetes mellitus type 1 (noncompliant), meth abuse, seizure disorder, PTSD, anxiety and depression that presents to the emergency room for the above complaint. The patient reports that he developed right hand pain, swelling and redness over the past week. Describes the pain as dull and aching, exacerbated with movement and relieved by nothing. He reports that is progressively gotten worse. He reports that he uses this hand as an injection site for his meth abuse. He reports that he was recently "kicked out" of a rehab facility in [place] back in October. He reports that he came back to [place], where he has been abusing meth for the past couple months. He reports that he is using daily. He reports that he injects and smokes it. He says that he has been trying to "overdose on meth, in order to kill himself" because he is so disappointed himself for being "kicked out of rehab". He denies any fever/c hills. Denies any abdominal pain, nausea, vomiting, diarrhea. He reports that he is a type I diabetic and has been noncompliant for the past month. He reports some polyuria and polydipsia. He reports an associated lesion to the foreskin of his penis. He says that this lesion is painless and that he often gets it when his blood sugars are too high. He is sexually active, has 1 partner, his fiance. No concern for STIs. He does not use protection. He also reports having right testicular pain for several years. He says over the past couple months, both of his testicles have been hurting. He denies any penile discharge or hematuria. No known trauma, no family history of cancer. He reports that he has been voiding per usual. Again denies any fever or chills. He denies any chest pain, heart palpitations, lightheadedness. Denies any shortness of breath, cough, wheezing. He has no other complaints at this time. ED Course: VITAL SIGNS TueDec 18, 2019 19:21 KALEB De León, [facility] BP: 133/95, Pulse: 99, Resp: 18, Temp: 98.0 (Oral), Pain: 10, O2 sat: 99 on (Room Air), Time: 12/18/2019 19:21. VITAL SIGNS TueDec 18, 2019 20:56 KALEB Hutton, [facility] BP: 127/88, Pulse: 109, Resp: 18, O2 sat: 100 on (Room Air), Time: 12/18/2019 20:56. Medication administration: Zosyn 4.5 g IV Piggy Back Acknowledged 21:57 12/18/2019 clotrimazole topical 1 inch Topical Acknowledged 21:45 12/18/2019 Adacel(Tdap Adolesn/Adult)(PF) 1 units Intramuscular Held 20:11 12/18/2019 Tylenol 1 g Oral Held 20:03 12/18/2019 vancomycin in dextrose 5 % 1.5 g IV Piggy Back Acknowledged 19:48 12/18/2019 cefTRIAXone injection 1 g IV Piggy Back Given 20:45 12/18/2019 sodium chloride 0.9 % intravenous 1000 mL IV Fluid Infusion Given 20:40 12/18/2019 ziprasidone HCl 20 mg Oral Given 20:15 12/18/2019 azithromycin oral 1 g Oral Given 20:02 12/18/2019 Hospitalist ROS - Review of Systems All other systems reviewed; all pertinent +/- noted in HPI/Subj - Medication Medications: Home Medications: 1. Zoloft unknown dose 2. Duloxetine unknown dose 3. Cymbalta unknown dose 4. Olanzapine unknown dose 5. Vivitrol injection monthly unknown dose. 6. Unknown seizure medication. 7. Levemir 40 units SC every morning and nightly. 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 - Social History Smoking Status: Current every day smoker (Meth) Alcohol: reports: None Drugs: reports: marijuana, methamphetamine (Injects and smokes) Living Situation: With Family Occupation: Unknown Activity level: independent ambulation - Exam General Appearance: NAD, awake alert. negative: ill appearing Eye: anicteric sclera ENT: normocephalic atraumatic Neck: supple, symmetric, no JVD Heart: RRR, no murmur, no gallops, no rubs, normal peripheral pulses Respiratory: CTAB, no wheezes, no rales, no ronchi, normal chest expansion, no tachypnea Gastrointestinal: soft, non-tender, non-distended, normal bowel sounds, no br uit, no guarding, no rigidity Extremities - other findings: Right hand, swelling, erythema, TTP right dorsum, medial aspect Neurological: cranial nerve grossly intact, no focal deficits Psychiatric: normal affect, A&O x 3 Hospitalist Results - Labs Result Diagrams: 12/18/19 20:34 12/18/19 20:34 Lab results: WBC 11.5 thou/uL (4.8-10.8) H 12/18/19 20:34 Hgb 16.5 g/dL (14.0-18.0) 12/18/19 20:34 Hct 48.0 % (42.0-52.0) 12/18/19 20:34 MCV 83.5 fL (78.0-98.0) 12/18/19 20:34 Plt Count 322 thou/uL (130-400) 12/18/19 20:34 Neutrophils % 78.7 % (42.0-75.0) H 12/18/19 20:34 Sodium 127 mmol/L (136-145) L 12/18/19 20:34 Potassium 4.1 mmol/L (3.5-5.1) 12/18/19 20:34 Chloride 93 mmol/L (98-107) L 12/18/19 20:34 Carbon Dioxide 24 mmol/L (22-29) 12/18/19 20:34 BUN 11 mg/dL (8.9-20.6) 12/18/19 20:34 Creatinine 0.81 mg/dL (0.7-1.3) 12/18/19 20:34 Glucose 354 mg/dL (70-105) H 12/18/19 20:34 Lactic Acid 2.1 mmol/L (0.5-2.2) 12/18/19 20:34 Calcium 9.5 mg/dL (7.8-10.44) 12/18/19 20:34 Total Bilirubin 1.2 mg/dL (0.2-1.2) 12/18/19 20:34 AST 10 U/L (5-34) 12/18/19 20:34 ALT 10 U/L (8-55) 12/18/19 20:34 Alkaline Phosphatase 150 U/L (40-110) H 12/18/19 20:34 Troponin I Less than 0.010 ng/mL (< 0.028) 12/18/19 20:34 C-Reactive Protein 3.87 mg/dL (= or < 0.5) H 12/18/19 20:34 Serum Total Protein 8.4 g/dL (6.0-8.3) H 12/18/19 20:34 Albumin 4.2 g/dL (3.5-5.0) 12/18/19 20:34 Lipase 9 U/L (8-78) 12/18/19 20:34 - EKG Interpretation EK lead EKG interpreted by Emergency Department Physician at time of study, Rate 102, CT 128, QRS 88, QTc 435, sinus tachy without signs of ischemia (t waves and st segments normal). - Radiology Interpretation Other Status: pending Additional Comment: XR right hand US testiclular Hospitalist H&P A/P - Problem (1) Sepsis Code(s): A41.9 - SEPSIS, UNSPECIFIED ORGANISM Status: Acute (2) Abscess of right hand Code(s): L02.511 - CUTANEOUS ABSCESS OF RIGHT HAND Status: Acute (3) Testicular/scrotal pain Code(s): QBX4025 - Status: Acute (4) Syphilitic chancre of penis Code(s): A51.0 - PRIMARY GENITAL SYPHILIS Status: Acute (5) Yeast dermatitis of penis Code(s): B37.49 - OTHER UROGENITAL CANDIDIASIS Status: Acute (6) Hyperglycemia Code(s): R73.9 - HYPERGLYCEMIA, UNSPECIFIED Status: Acute (7) Hyponatremia Code(s): E87.1 - HYPO-OSMOLALITY AND HYPONATREMIA Status: Acute (8) Diabetes type I Status: Chronic Qualifiers: Diabetes mellitus complication status: with hyperglycemia Qualified Code(s): E10.65 - Type 1 diabetes mellitus with hyperglycemia (9) Polysubstance abuse Code(s): F19.10 - OTHER PSYCHOACTIVE SUBSTANCE ABUSE, UNCOMPLICATED Status: Acute (10) Suicidal ideation Code(s): R45.851 - SUICIDAL IDEATIONS Status: Acute (11) PTSD (post-traumatic stress disorder) Code(s): F43.10 - POST-TRAUMATIC STRESS DISORDER, UNSPECIFIED Status: Chronic (12) Anxiety and depression Code(s): F41.9 - ANXIETY DISORDER, UNSPECIFIED; F32.9 - MAJOR DEPRESSIVE DISORDER, SINGLE EPISODE, UNSPECIFIED Status: Chronic - Plan Plan: 39/M with PMH polysubstance abuse, DM 1, PTSD, seizure disorder presents for right hand pain Admit to surgical floor, inpatient status. Expected length of stay greater than 2 midnights. Presented tachycardic, NL RR BP, RR, SPO2, afebrile. EKG sinus tachycardia, no ST elevations X-ray right hand reported abscess. Testicular ultrasound pending WBC 11.5, LA 2.1, CRP 3.87 Toxicology negative Blood glucose 336, sodium 127 Blood/urine CX pending #Sepsis Likely related to abscess of right hand. Received 1 L normal saline in ED. Blood pressure elevated. Will Start maintenance IV fluid. Repeat LA pending. Continue Zosyn and vancomycin broad-spectrum coverage. Blood/urine CX pending. Echocardiogram for endocarditis. #Abscess of right hand ER MD consulted Dr. Frank. Recommended Zosyn IVPB. N.p.o. Consent for I&D with washout tomorrow. 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 Patient reports sexually active with 1 person in past 3 years. Reports lesion common when blood sugar is elevated. Reports negative tests for syphilis in past. We will check RPR and HIV co-infection. #Yeast dermatitis of penis We will continue clotrimazole topical. #Testicular/scrotal pain Acute on chronic. Reports right testicular pain for several years. Now bilateral pain. Testicular ultrasound pending. Results to determine further clinical course. #Hyperglycemia Noncompliant with insulin for past month. Presented with a BG 336. Eating dinner upon assessment. Takes Levemir at 30 units every morning and every afternoon. We will give Levemir 30 units x 1 dose. Moderate ISS. ACHS Accu-Cheks. Check hemoglobin A1c. #Hyponatremia Presented Na 127, corrected Na 131. Recheck level in a.m. #Diabetes type 1 Reports noncompliance over the past month. Takes Levemir 30 units every morning and nightly. We will check hemoglobin A1c. #Polysubstance abuse Recently in rehab facility in [place]. Abuses meth daily. Abuses Marijuana. #Suicidal ideation Said that he wanted to kill himself by OD meth bc he is dissapointed that he was kicked out of rehab in [place]. He is remorseful. Suicide precautions. Consult [facility] when medically stable. #PTSD Takes unknown dose of Zoloft, duloxetine, Cymbalta, olanzapine, Vivitrol at home. Fianc to reconcile home medications with nursing. # Anxiety and depression Takes unknown dose of Zoloft, duloxetine, Cymbalta, olanzapine, Vivitrol at home. Fianc to reconcile home medications with nursing. Lovenox for DVT prophylaxis. No GI prophylaxis. Full code. His medical contact is Lorna his fiance at [phone]. Discussed the case with Dr. Isai Huang.
[2019-12-18] MEDS ORDERED: Dextrose 50% Abboject 50 ML SYRINGE SLOW IVP PRN (22:34)
[2019-12-18] MEDS ORDERED: Dextrose 5% in Water 1,000 ML IV PRN (22:34)
[2019-12-18] MEDS ORDERED: Ondansetron PF 4 MG/2 ML Vial IVP PRN (22:35)
[2019-12-18] MEDS ORDERED: Ondansetron ODT 4 MG TAB PO PRN (22:35)
[2019-12-18] MEDS ORDERED: Calcium Carbonate 500 MG ChewTAB PO PRN (22:35)
[2019-12-18] MEDS ORDERED: Senokot S 8.6-50 MG TAB PO PRN (22:35)
[2019-12-18 22:37] LABS: Bacteria/HPF None Seen HPF (None Seen); Bilirubin Negative (Negative); Blood, Urine Negative (Negative); Clarity Clear (Clear); Glucose, Urine (Dipstick) Greater than 1000 mg/dL (Negative); Ketone, Urine 40 mg/dL (Negative); Leukocyte 25 Leu/uL (Negative); Nitrite Negative (Negative); Protein, Urine (Dipstick) Negative (Neg-Trace); RBC/HPF 0-3 HPF (0-3); Specific Gravity, Urine 1.036 (1.002-1.036); Squamous Epithelial 0-3 HPF (0-3)
[2019-12-18] MEDS ORDERED: Sodium Chloride 0.9% 1,000 ML IV SCH (22:45)
[2019-12-18 22:48] LABS: Amphetamine Detected (NotDetected); Benzodiazepine Screen Not Detected (NotDetected); Cocaine Metabolite Screen Not Detected (NotDetected); Medtox Reader # READER 4; Methamphetamine Detected (NotDetected); Opiate Screen Not Detected (NotDetected); Phencyclidine (PCP) Not Detected (NotDetected); THC/Cannabinoid Screen Not Detected (NotDetected)
[2019-12-18 22:49] LABS: Barbiturates Screen Not Detected (NotDetected); Medtox Control Line Valid? VALID (VALID); Methadone Not Detected (NotDetected); Oxycodone Screen Not Detected (NotDetected); Tricyclic Screen Not Detected (NotDetected)
[2019-12-18] MEDS ORDERED: Insulin Glargine 30 UNITS in Pre-Filled Syringe 1 EACH SC SCH (23:45)
[2019-12-18 23:56] LABS: Lactic Acid 2.1 mmol/L (0.5-2.2)
[2019-12-19] VITALS: BMI 24.3
[2019-12-19] MEDS: Sodium Chloride 0.9% 1,000 ML IV SCH ×2 (00:28→10:55)
[2019-12-19] MEDS: Piperacillin/Tazobactam 4.5 GM in Sodium Chloride 0.9% 100 ML IVPB SCH ×3 (00:29→16:02)
[2019-12-19] MEDS: Vancomycin 1 GM in Premix Bag 1 BAG IVPB SCH ×3 (05:39→19:28)
[2019-12-19 05:49] LABS: #Lymphocytes 1.1 thou/uL (1.20-3.40); #Monocytes 0.4 thou/uL (0.11-0.59); #Neutrophils 7.9 thou/uL (1.40-6.50); %Basophils 0.5 % (0.0-1.0); %Eosinophils 0.5 % (0.0-10.0); %Lymphocytes 11.8 % (21.0-51.0); %Monocytes 4.6 % (0.0-10.0); %Neutrophils 82.6 % (42.0-75.0); Mean Corpuscular HGB CONC 35.5 g/dL (32.0-36.0); Mean Corpuscular Volume 84.6 fL (78.0-98.0); Mean Platelet Volume 6.6 fL (7.4-10.4); Platelet Count 313 thou/uL (130-400); RBC Distribution Width 12.2 % (11.5-14.5); Red Blood Cell (RBC) Count 4.99 mill/uL (4.70-6.10); White Blood Cell (WBC) Count 9.6 thou/uL (4.8-10.8)
[2019-12-19 05:55] LABS: Hemoglobin A1c 8.2 % (4.0-6.0)
--- NOTE | 2019-12-19 06:18 | RAD ---
RIGHT HAND 3 VIEWS: Date: 12/18/2019 HISTORY: Abscess. Hand swelling. FINDINGS: No fracture. No osseous abnormality. There is soft tissue fullness dorsally over the metacarpals whic h may correspond to the area of swelling. IMPRESSION: No acute osseous abnormality. Soft tissue swelling noted dorsally over the metacarpals. POS: AGW
--- NOTE | 2019-12-19 06:23 | ULT ---
TESTICULAR ULTRASOUND: Date: 12/18/2019 INDICATION: Pain in right testicle. FINDINGS: Both testicles have a normal sonographic appearance. Both testicles show normal and equal blood flow with color Doppler and spectral analysis. There are bilateral epididymal head masses which are hypoechoic. This measures 1.0-1.5 cm on the righ t and measures approximately 0.7-1.2 cm on the left. This may represent bilateral epididymitis as the re is increased blood flow to both of these epididymides. Recommend urologic consultation. There are bilateral small hydroceles. IMPRESSION: 1. Testicles are unremarkable. 2. Head of epididymis is prominent bilaterally, having mass-like appearance on ultrasound. There is increased blood flow to the head of both epididymides. 3. Small bilateral hydroceles. POS: AGW
[2019-12-19 06:31] LABS: Syphilis Antibody Nonreactive (Nonreactive); Syphilis Antibody Index 0.05 S/CO (<1.00 Non-Reactive)
[2019-12-19] MEDS: HumaLOG 300 UNITS/3 ML VIAL SC PRN (06:47)
[2019-12-19 06:53] LABS: Lactic Acid 0.7 mmol/L (0.5-2.2)
[2019-12-19 06:56] LABS: Anion Gap 15 mmol/L (10-20); BUN (Urea Nitrogen) 10 mg/dL (8.9-20.6); Calc. Creatinine Clearance 142 mL/min (70-130); Carbon Dioxide 19 mmol/L (22-29); Chloride 100 mmol/L (98-107); Estimated GFR-MDRD Greater than 90; Glucose 297 mg/dL (70-105); Potassium 3.8 mmol/L (3.5-5.1); Sodium 130 mmol/L (136-145)
[2019-12-19 07:20] LABS: SARS-CoV-2 NAA Rapid Test Not Detected (NotDetected)
[2019-12-19] MEDS: Enoxaparin Sodium 40 MG/0.4 ML SYRINGE SC SCH (07:42)
[2019-12-19] MEDS ORDERED: Dextrose 5 % And 0.9 % NaCl 1,000 ML IV SCH (08:30)
[2019-12-19] MEDS ORDERED: FLU VACC QS2020-21(6MOS UP)/PF 60 MCG/0.5 ML SYRINGE IM ONE (09:00)
--- NOTE | 2019-12-19 09:04 | PDOC.HOSPP ---
- Subjective Encounter Date: 12/19/19 Encounter Time: 09:03 Subjective: The patient states he has been having pain in his right hand intermittently for the past one week. He used meth but missed his vein and injected his hand. He reports his pain is 8-9/10, not worsened or alleviated by anything. He denies fevers or chills. This morning he was demanding to eat food and did not want to wait to hear from the hand-surgeon. He reports low blood sugars and seizures while fasting. He ate a cracker and drank some sprite and was agreeable to being fasting after he was told that his surgery was between 3-5 pm THe patient also reports intermittent pain in his scrotal area. He states it is worst when he is standing up. He had STD testing last month that was normal. He denies penile discharge, pain on urination. He has been with the same partner for three years and does not use protection . He denies any trauma He was in rehab for meth last month, but relapsed [place]. He has been off heroin since last February He drinks 1-2 beers daily. He does not use tobacco - Objective Vital Signs & Weight: Vital Signs (12 hours) Temp Pulse Resp BP Pulse Ox 12/19/19 07:41 98.8 F 93 20 121/84 100 12/19/19 04:00 98.7 F 98 16 129/70 99 12/19/19 01:00 100 12/18/19 23:45 98.9 F 105 H 18 135/72 100 Weight Weight 155 lb I&O: 12/18/19 12/19/19 12/20/19 06:59 06:59 06:59 Intake Total 970 Output Total 600 Balance 370 Result Diagrams: 12/19/19 05:41 12/19/19 05:41 Additional Labs: Accuchecks 12/19/19 12/19/19 12/18/19 06:36 00:13 21:06 POC Glucose 330 H 396 H 336 H Hospitalist ROS - Review of Systems Constitutional: denies: fever, chills - Medication Medications: Active Medications Generic Name Dose Route Start Last Admin Trade Name Freq PRN Reason Stop Dose Admin Enoxaparin Sodium 40 mg 12/19/19 09:00 12/19/19 07:42 Enoxaparin Sodium 40 Mg/0.4 Ml Syringe SC Not Given 0900 PAULINO Vancomycin HCl 1 gm/ Device 200 mls @ 200 mls/hr 12/19/19 06:00 12/19/19 05:39 IVPB 200 mls Q8HR PAULINO Administration Piperacillin Sod/Tazobactam 100 mls @ 200 mls/hr 12/18/19 23:59 12/19/19 00:29 Sod 4.5 gm/ Sodium Chloride IVPB 100 mls 0800,1600,2359 PAULINO Administration Insulin Human Lispro 0 units 12/18/19 22:34 12/19/19 06:47 Humalog 300 Units/3 Ml Vial SC 4 unit .BEDTIME SLIDING SC PRN Administration Bedtime Correctional Scale - Exam General Appearance: NAD, awake alert Eye: PERRL, anicteric sclera ENT: normocephalic atraumatic, no oropharyngeal lesions Neck: no JVD Heart: RRR, no murmur, no gallops, no rubs Respiratory: CTAB, no wheezes, no rales, no ronchi Gastrointestinal: soft, non-tender, non-distended, normal bowel sounds Gastrointestinal - other findings: scrotal erythema and swelling, lump palpable right test. Ulcer shaft Extremities: no cyanosis, no clubbing, no edema Extremities - other findings: right hand swollen, extremely tender. Appears to have abscess Skin: normal turgor, no lesions, no rashes Skin - other findings: severe right hand swelling Neurological: cranial nerve grossly intact, normal sensation to touch, no weakness, no focal deficits Musculoskeletal: normal tone, normal strength, no muscle wasting Psychiatric: normal affect, normal behavior, A&O x 3, oriented to person Hosp A/P - Plan Testicular Ultrasound: testicles are unremarkable. Head of epididymis is prominent bilaterally having mass like appearance on ultrasound. Increased blood flow to the head of both epidydmides. Small bilateral hydroceles. Right hand X ray: soft tissue swelling dorsally over the metacarpals This is a 39 year old male with past medical history of meth abuse, heroin use who presented with right hand swelling and genital pain/swelling Right hand cellulitis with concern for abscess - patient has been kept NPO. Hand surgery to be consulted and plan for possible I and D this afternoon - continue empiric vancomycin and zosyn - blood cultures are negative Testicular pain/swelling - syphilis negative, HIV pending - gonorrhea chlamydia pending - ultrasound showed mass like appearance on ultrasound. Palpable knot noted on right testicle. Urology consult has been ordered Hyponatremia - sodium improved from 127 to 130 - continue IV fluids' Type I diabetes - patient received lantus 30 units last night. HbA1C 8.2 - was placed on dextrose while NPO, but since last blood sugar still 290, will discontinue Anxiety/Schizophrenia/PTSD/Depression - continue symbalta, sertraline, prazosin, trazodone Alcohol use/Methamphetamine use - continue naltrexone post surgery - add clonidine prn for agitation - trazodone 50 mg qhs for insomnia - MHMR consult possibly when medically stable
[2019-12-19] MEDS: Clotrimazole 1 % Cream 30 GM TUBE TOP SCH ×2 (09:16→19:27)
[2019-12-19] MEDS ORDERED: Ondansetron PF 4 MG/2 ML Vial ONE (10:45)
[2019-12-19] MEDS ORDERED: PROPOFOL 200 MG/20 ML VIAL ONE (10:45)
[2019-12-19] MEDS ORDERED: Lidocaine 1% PF 5 ML VIAL ONE (10:45)
[2019-12-19] MEDS ORDERED: cloNIDine 0.1 MG TAB PO PRN (11:32)
[2019-12-19] MEDS ORDERED: Lorazepam 1 MG TAB PO PRN (11:38)
[2019-12-19] MEDS: Lorazepam 2 MG/ML VIAL SLOW IVP PRN ×2 (11:48→18:36)
[2019-12-19] MEDS ORDERED: Fentanyl 100 MCG/2 ML VIAL ONE ×2 (14:42→16:26)
[2019-12-19] MEDS ORDERED: Bupivacaine/Epinephrine 0.25% 30 ML VIAL ONE (14:47)
[2019-12-19] MEDS ORDERED: Sodium Chloride 0.9% 0 ML ONE (14:48)
[2019-12-19] MEDS ORDERED: Lidocaine 1% w/Epinephrine 1:100K 20 ML VIAL ONE (14:48)
[2019-12-19] MEDS ORDERED: hydrOXYzine Pamoate 25 mg Capsule PO PRN (14:57)
[2019-12-19] MEDS ORDERED: Bupivacaine 0.25% HCL 30 ML VIAL ONE (16:01)
[2019-12-19] MEDS ORDERED: Ketorolac Tromethamine 30 MG/ML VIAL ONE (16:26)
[2019-12-19] MEDS ORDERED: Meperidine HCl/PF 25 MG/ML VIAL SLOW IVP PRN (16:33)
[2019-12-19] MEDS ORDERED: Ondansetron HCl/PF 4 MG/2 ML Vial IVP PRN (16:33)
[2019-12-19] MEDS ORDERED: Promethazine HCl 25 MG/ML VIAL IM PRN (16:33)
[2019-12-19] MEDS ORDERED: HYDROmorphone 2 MG/ML VIAL SLOW IVP PRN (16:33)
[2019-12-19] MEDS ORDERED: Promethazine HCl 25 MG/ML VIAL SLOW IVP PRN (16:33)
[2019-12-19] MEDS ORDERED: HumaLOG 300 UNITS/3 ML VIAL ONE ×2 (16:38→16:40)
[2019-12-19] MEDS: Piperacillin/Tazobactam 3.375 GM in Sodium Chloride 0.9% 100 ML IVPB SCH ×2 (17:39→23:05)
[2019-12-19] MEDS ORDERED: Ketorolac Tromethamine 30 MG/ML VIAL IVP PRN (18:47)
[2019-12-19] MEDS ORDERED: Morphine 2 MG/ML VIAL SLOW IVP PRN (18:47)
[2019-12-19] MEDS: Ibuprofen 200 MG TAB PO PRN (19:27)
[2019-12-19] MEDS: DULoxetine 30 MG CAP PO SCH (19:27)
[2019-12-19] MEDS: traZODone HCl 50 MG TAB PO SCH (19:27)
[2019-12-19] MEDS: Prazosin HCl 1 MG CAP PO SCH (19:34)
[2019-12-19 21:26] LABS: Vancomycin, Trough 31.1 ug/mL
[2019-12-20] MEDS: Piperacillin/Tazobactam 3.375 GM in Sodium Chloride 0.9% 100 ML IVPB SCH ×4 (05:11→18:18)
[2019-12-20 06:07] LABS: HIV (1/2) Antibody/Antigen Non-Reactive (NonReactive); HIV 1/2 INDEX 0.06 S/CO (<1.00)
[2019-12-20] MEDS ORDERED: Non-Formulary Item 1 EACH (Naltrexone Hcl [Naltrexone Hcl] 50 MG Tablet) PO SCH (08:50)
--- NOTE | 2019-12-20 08:58 | CON ---
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 I was asked to see the patient by the ER staff at [facility]. He presented to the ER with a 1-1/2 week history of pain and swelling in his right hand. The patient admits to injecting methamphetamines into the right hand. He has a history of IV drug use. Again, his last use was about a week and a half ago where he attempted to inject drugs into his right hand. He was admitted to the medicine service. IV antibiotics in the form of vancomycin and Zosyn were started. I was able to visit with him at bedside. PHYSICAL EXAMINATION: GENERAL: The patient appears to be somewhat sleepy. He is alert and oriented to person, place, and time. EXTREMITIES: Right upper extremity: There are tattoos up and down the right upper extremity. There are significant indurations, swelling and erythema over the dorsal aspect of the right hand and area of the second and third metacarpal rays; no clinical sign of compartment syndrome. Flexor and extensor tendon functions are grossly intact. All fingers are neurovascularly intact. He is nontender to palpation over the right palm and there is no lymphangitis or adenopathy appreciated. IMAGING: Right hand x-rays were reviewed by me and there are no foreign bodies within the soft tissues or periosteal elevations or fractures or dislocations or subluxations appreciated. LABORATORY DATA: CBC and Chem-7 were also reviewed by me. ASSESSMENT AND PLAN: Dorsal right hand abscess. Recommend OR for incision and drainage and washout. I discussed all risks and goals associated with the surgery with the patient. He voiced understanding and agreed to proceed. The patient should continue to remain admitted to the Internal Medicine service for pain control and IV antibiotics in the form of broadspectrum coverage. Vancomycin and Zosyn should be sufficient. Surgery will certainly follow the patient as a consultation. Please call Dr. Frank, his cellphone [phone] should you have further questions. Job ID: [id number]
[2019-12-20] MEDS: Ibuprofen 200 MG TAB PO PRN (09:04)
[2019-12-20] MEDS: DULoxetine 30 MG CAP PO SCH ×2 (09:05→21:01)
[2019-12-20] MEDS: Aripiprazole 2 MG TAB PO SCH (09:05)
[2019-12-20] MEDS: Enoxaparin Sodium 40 MG/0.4 ML SYRINGE SC SCH (09:05)
[2019-12-20] MEDS: Clotrimazole 1 % Cream 30 GM TUBE TOP SCH ×2 (09:05→21:01)
--- NOTE | 2019-12-20 09:25 | OP ---
DATE OF PROCEDURE: 12/19/2019 PREOPERATIVE DIAGNOSIS: Dorsal right hand abscess. POSTOPERATIVE DIAGNOSIS: Dorsal right hand abscess. PROCEDURE PERFORMED: Incision, drainage, and washout of dorsal right hand abscess. KEG INSPECTOR: Please see operative record. ANESTHESIA: General and local. FINDINGS: Significant purulence noted over the dorsum of the right hand in the area of second and third metacarpal rays. SPECIMENS: Culture and sensitivities. ESTIMATED BLOOD LOSS: Less than 5 mL. TOURNIQUET TIME: 17 minutes. IMPLANT: 1/4 inch José drain CONDITION: Stable. INDICATIONS FOR PROCEDURE: The patient is a 39-year-old right dominant male, who was admitted to the hospital with an abscess over the dorsum of the right hand. He was given IV antibiotics. There was no improvement overnight. Therefore, incision, drainage, and washout of the right hand was recommended. I discussed all risks and goals associated with the procedure with the patient. He voiced understanding and agreed to proceed. Of note, the patient has a significant history of chronic IV drug use and last used about a week and half ago and attempted injecting methamphetamines into his right hand not in the area of abscess. DESCRIPTION OF PROCEDURE: The patient was brought to the operating room, placed supine on the operating room table. Time-out was performed. Antibiotics had been given and scheduled. Right upper extremity tourniquet was applied. General anesthesia was induced by the Anesthesia Team. The right upper extremity was then prepped and draped under sterile aseptic conditions. A second time-out was performed and the right upper extremity was exsanguinated using gravity. Tourniquet was inflated to 250 mmHg. A longitudinal incision was made after local anesthetic was infiltrated in the skin overlying area of the abscess over the dorsum of the right hand in the area between the second and third metacarpal rays. The incision was made using a 15 blade scalpel. Purulent drainage was noted immediately upon making a skin incision. Cultures and sensitivities were taken in the form of Gram-stain on aerobic and anaerobic, acid fast, and fungal. I was able to drain the abscess completely. I used approximately 6 L of sterile saline solution to washout the wound. I investigated the spaces between adductor muscles and also within interossei and there was no purulence noted. The abscess appeared to be superficial to the extensor tendons. There was no penetration within the metacarpophalangeal joints. The skin incision was closed over 0.25 inch [place] drain. The tourniquet was deflated. All fingers resumed to normal pink color with good refill. Following deflation of tourniquet, skin incision was loosely closed using 4-0 nylon sutures. Xeroform was applied over the wound along with big bulky dressing over the hand and wrist. The patient was extubated and transported back to the recovery area in stable condition. He will continue to remain on vancomycin and Zosyn and we can tailor the antibiotics according to the culture results. He will begin hand soaks following morning and warm clean tap water mixed with Hibiclens for about 30 to 40 minutes and he should do these about 3 to 4 times a day. We will leave the drain in place for at least 24 to potentially 48 hours and I will observe him closely. Job ID: [id number] [facility]ITAL[facility]
[2019-12-20 09:43] LABS: Hemoglobin 14.3 g/dL (14.0-18.0); Mean Corpuscular HGB CONC 34.8 g/dL (32.0-36.0); Mean Corpuscular Hemoglobin 29.8 pg (27.0-31.0); Mean Corpuscular Volume 85.6 fL (78.0-98.0); Mean Platelet Volume 6.5 fL (7.4-10.4); Platelet Count 245 thou/uL (130-400); RBC Distribution Width 11.9 % (11.5-14.5); White Blood Cell (WBC) Count 5.7 thou/uL (4.8-10.8)
[2019-12-20 10:00] LABS: Vancomycin, Trough 3.6 ug/mL
[2019-12-20] MEDS ORDERED: Vancomycin 1 GM in Premix Bag 1 BAG IVPB SCH ×2 (10:00→11:00)
[2019-12-20 10:02] LABS: Anion Gap 12 mmol/L (10-20); BUN (Urea Nitrogen) 11 mg/dL (8.9-20.6); Calc. Creatinine Clearance 122 mL/min (70-130); Calcium 8.6 mg/dL (7.8-10.44); Carbon Dioxide 24 mmol/L (22-29); Chloride 97 mmol/L (98-107); Estimated GFR-MDRD Greater than 90; Glucose 323 mg/dL (70-105); Potassium 3.4 mmol/L (3.5-5.1); Sodium 130 mmol/L (136-145)
--- NOTE | 2019-12-20 14:11 | CON ---
DATE OF CONSULTATION: 12/20/2019 REASON FOR CONSULTATION: Testicular pain. CHIEF COMPLAINT: Right hand pain. HISTORY OF PRESENT ILLNESS: This is a 39-year-old male, currently admitted for right hand abscess, status post incision and washout yesterday. He is currently on broad-spectrum antibiotics. When admitted, he reported having long-standing testicular pain. He had an ultrasound performed, which showed only small cyst in both epididymi. In speaking with him today, he tells me that he has been having intermittent bilateral testicular pain for the past 3 or 4 years. He feels that this gets worse when he is using methamphetamines. He thinks he has a history of chlamydia in the remote past, but no history of gonorrhea or other STIs. He denies any recent dysuria, suprapubic pain, urethral discharge. No history of diagnosed epididymitis. The patient reports that when he stops using his insulin, he will develop irritation of his foreskin and glans. He has noted this over the past couple of weeks. Typically he uses a steroid cream and this resolves with resuming his insulin. PAST MEDICAL HISTORY: 1. Type 1 diabetes. 2. Seizure disorder. 3. PTSD. 4. Anxiety. 5. Depression. 6. Methamphetamine abuse. PAST SURGICAL HISTORY: No prior urologic surgeries. MEDICATIONS: Home medication reviewed. No pertinent urology medications. SOCIAL HISTORY: Current everyday smoker, methamphetamine abuse. ALLERGIES: ACETAMINOPHEN, CODEINE, IODINE. REVIEW OF SYSTEMS: Ten-point review of systems is negative other than as in my HPI and right hand pain and swelling. PHYSICAL EXAMINATION: VITAL SIGNS: Afebrile. Vitals stable. GENERAL: No acute distress. The patient is somewhat somnolent and does not want to wake up for our discussion. HEENT: Normocephalic, atraumatic. Extraocular movements intact. Sclerae anicteric. NECK: Supple. Trachea midline. Unlabored breathing. Symmetric chest expansion. HEART: Regular rate and rhythm. ABDOMEN: Soft, nontender, nondistended. No flank tenderness. No suprapubic tenderness. : Normal intact phallus with erythema of the inner preputial skin and glans consistent with balanitis. Normal meatus. Both testicles normal, nontender. No palpable epididymal cysts, posttraumatic cord somewhat indurated with minimal tenderness. EXTREMITIES: Right hand is currently wrapped in gauze. No pedal edema. NEURO: Somnolent, oriented x3. PSYCHIATRIC: Normal affect. SKIN: Warm and dry. LABORATORY STUDIES: Urine culture, no growth at 12 hours. Urinalysis; greater than 1000 glucose, 25 leukocyte esterase, 7 to 10 white blood cells. Testicular ultrasound; I personally reviewed his ultrasound, noting bilateral epididymal cysts, neither larger than 1 cm. ASSESSMENT AND PLAN: Chronic epididymitis. Treatment for this is antibiotics, which he is already on and anti-inflammatory medications. I advised the use of naproxen twice daily for the next 3 to 4 weeks. If he has worsening symptoms or fails to improve over the next 3 to 4 weeks, he knows to contact me. Job ID: [id number] [facility]
--- NOTE | 2019-12-20 15:50 | PDOC.HOSPP ---
- Subjective Encounter Date: 12/20/19 Encounter Time: 09:00 Subjective: Mr. Bolton is a 39 y/o M with a history of schizophrenia and substance abuse on day 1 s/p I&D of the R hand for cellulitis caused by needle injury during methamphetamine drug use. Cellulitis: Pt. reports pain at a 7/10 on the R hand. He reports that the pain is more manageable and is partially relieved by his pain medication regimen. Testicular Pain: Urology was consulted and consult was reported as chronic epididimytis. Patient has no acute concerns. Hyponatremia: Patient denies any dizziness, headache, confusion, nausea, vomiting. T1DM: Pt. denies polydypsia, polydypsia. Schizophrenia/Depression/Substance Use: Patient denies any current suicidality. Reports cravings and requests naltrexone. - Objective Vital Signs & Weight: Vital Signs (12 hours) Temp Pulse Resp BP Pulse Ox 12/20/19 12:45 98.2 F 85 16 131/78 99 12/20/19 07:45 98.3 F 89 16 114/72 1 L 12/20/19 04:06 98.5 F 88 18 115/73 93 L Weight Admit Weight 155 lb Weight 155 lb I&O: 12/19/19 12/20/19 12/21/19 06:59 06:59 06:59 Intake Total 970 1890 Output Total 600 1000 Balance 370 890 Result Diagrams: 12/20/19 09:26 12/20/19 09:26 Additional Labs: Accuchecks 12/20/19 12/19/19 12/19/19 05:14 21:18 18:03 POC Glucose 189 H 296 H 178 H Over past three days, Na went from 127 > 130 > 130 (today) Hospitalist ROS - Review of Systems Constitutional: denies: fever, chills, sweats Respiratory: denies: cough, dry, shortness of breath Cardiovascular: denies: chest pain, palpitations, orthopnea Gastrointestinal: denies: nausea, vomiting, abdominal pain, diarrhea, constipation Genitourinary: denies: dysuria, frequency Musculoskeletal: reports: hand pain (at surgery location) Neurological: denies: weakness, numbness - Medication Medications: Active Medications Generic Name Dose Route Start Last Admin Trade Name Freq PRN Reason Stop Dose Admin Aripiprazole 2 mg 12/20/19 09:00 12/20/19 09:05 Aripiprazole 2 Mg Tab PO 2 mg DAILY PAULINO Administration Clotrimazole 0 gm 12/19/19 09:00 12/20/19 09:05 Clotrimazole 1 % Cream 30 Gm Tube TOP 1 applic BID PAULINO Administration Duloxetine HCl 30 mg 12/19/19 21:00 12/20/19 09:05 Duloxetine 30 Mg Cap PO 30 mg BID PAULINO Administration Enoxaparin Sodium 40 mg 12/19/19 09:00 12/20/19 09:05 Enoxaparin Sodium 40 Mg/0.4 Ml Syringe SC Not Given 0900 PAULINO Piperacillin Sod/Tazobactam 100 mls @ 200 mls/hr 12/19/19 18:00 12/20/19 11:45 Sod 3.375 gm/ Sodium Chloride IVPB 100 mls Q6HR PAULINO Administration Vancomycin HCl 1 gm/ Device 200 mls @ 200 mls/hr 12/20/19 11:00 12/20/19 11:46 IVPB 200 mls 1100,2300 PAULINO Administration Ibuprofen 400 mg 12/19/19 17:00 12/20/19 09:04 Ibuprofen 200 Mg Tab PO 400 mg Q4H PRN Administration Pain Insulin Human Lispro 0 units 12/18/19 22:34 12/19/19 06:47 Humalog 300 Units/3 Ml Vial SC 4 unit .BEDTIME SLIDING SC PRN Administration Bedtime Correctional Scale Ketorolac Tromethamine 15 mg 12/19/19 18:47 12/19/19 19:28 Ketorolac Tromethamine 30 Mg/Ml Vial IVP 12/24/19 18:48 15 mg Q6H PRN Administration .MOD PAIN Lorazepam 1 mg 12/19/19 11:32 12/19/19 18:36 Lorazepam 2 Mg/Ml Vial SLOW IVP 1 mg Q4H PRN Administration Anxiety/Agitation Morphine Sulfate 2 mg 12/19/19 18:47 12/19/19 19:28 Morphine 2 Mg/Ml Vial SLOW IVP 2 mg Q4H PRN Administration .BREAKTHRU PAIN Prazosin HCl 1 mg 12/19/19 21:00 12/19/19 19:34 Prazosin Hcl 1 Mg Cap PO Not Given HS PAULINO Sertraline HCl 50 mg 12/20/19 09:00 12/20/19 09:04 Sertraline Hcl 100 Mg Tab PO 50 mg DAILY PAULINO Administration Trazodone HCl 50 mg 12/19/19 21:00 12/19/19 19:27 Trazodone Hcl 50 Mg Tab PO 50 mg HS PAULINO Administration - Exam General Appearance: NAD. negative: awake alert (very sleepy) ENT: normocephalic atraumatic Neck: supple, symmetric Heart: RRR, no murmur, no gallops, no rubs Respiratory: CTAB, no wheezes, no rales, no ronchi Gastrointestinal: non-distended Extremities - other findings: right hand appears swollen. Tender to mild palpation of hand Skin - other findings: gauze wrapped in the right hand Neurological: no weakness Musculoskeletal: no muscle wasting Musculoskeletal - other findings: Wound dressing dry and intact Psychiatric: normal behavior, A&O x 3. negative: normal affect (affect is depressed) Hosp A/P - Plan Testicular Ultrasound: testicles are unremarkable. Head of epididymis is prominent bilaterally having mass like appearance on ultrasound. Increased blood flow to the head of both epidydmides. Small bilateral hydroceles. Right hand X ray: soft tissue swelling dorsally over the metacarpals This is a 39 year old male with past medical history of meth abuse, heroin use who presented with right hand swelling and genital pain/swelling Right hand cellulitis with concern for abscess - Patient underwent I&D yesterday - Continue pain management and wound care - continue empiric vancomycin and zosyn - blood cultures are negative. Wound culture showed alpha hemolytic gram positive cocci, tailor antibiotics pending culture results and sensitivities. Testicular pain/swelling - syphilis negative, HIV negative - gonorrhea chlamydia pending - ultrasound showed mass like appearance on ultrasound. Palpable knot noted on right testicle. - Urology consult reports as chronic epididymitis. Treatment is Abx which he is on. Continue care with NSAIDs and contact urology for any changes or lack of relief as an outpatient in 3-4 weeks Hyponatremia - sodium improved from 127 to 130, stayed at 130 today - continue IV fluids. Check serum and urine osmolarity Type I diabetes - patient received lantus 30 units last night. HbA1C 8.2. Fasting was 189, pre- lunch was 323 - will change diet to diabetic diet. Continue sliding scale Anxiety/Schizophrenia/PTSD/Depression - continue symbalta, sertraline, prazosin, trazodone Alcohol use/Methamphetamine use - continue naltrexone post surgery - On clonidine prn for agitation - trazodone 50 mg qhs for insomnia - MHMR consult possibly when medically stable Attending addendum: I have seen and examined patient with medical student and agree with assessment and plan. Patient still reports significant pain in his right hand On exam, he has significant swelling. It was tightly wrapped in gauze Culture results are pending. Will continue vanc and zosyn pending sensitivities. There is a plan to remove his drain tomorrow . Consider MHMR consult tomorrow
--- NOTE | 2019-12-20 16:12 | PRG ---
DATE OF SERVICE: 12/20/2019 SUBJECTIVE: The patient is a 39-year-old male, seen today postoperative day 1 status post incision and drainage and washout of right hand dorsal abscess. He is resting comfortably in bed and in fact he was getting up to use bathroom when I came in to see him. He looked much more awake today. They said his pain is well controlled. He denies any fevers overnight. It was brought to my attention for the first time today that this was a suicide attempt regarding his recent methamphetamine use. Therefore, he is on one-to-one precautions with a track inspecting supervisor in the room. The patient otherwise is doing well. PHYSICAL EXAMINATION: RIGHT HAND/WRIST: José drain in place overlying dorsum of the right hand, and there was a wound which is loosely approximated with 4-0 nylon sutures. Area of induration and erythema significantly improved compared to preoperative examination; there is no purulent drainage noted from the wound. Flexor and extensor tendon functions are grossly intact, although somewhat limited secondary to stiffness in the fingers. All fingers are neurovascularly intact. He is nontender to palpation over the palm or over the first webspace or the second, third, or fourth webspaces. He displays no adenopathy and no lymphangitis. Cultures are pending. ASSESSMENT AND PLAN: Postoperative day 1 status post right hand incision and drainage and washout. 1. The patient should continue with hand soaks for 30-minute intervals at least 3 or 4 times a day. Dressing changes can be performed after each hand soak. 2. I instructed the patient on active range of motion exercises. 3. I will see the patient tomorrow and plan on drain removal tomorrow at bedside. 4. He should continue to remain admitted to the internal medicine service and continue with his medical treatment. Continue with his IV vancomycin and Zosyn until culture results are able to specify specific bacterial strain, and then once specific bacterial strain is identified, we can tailor the antibiotics accordingly. 5. Hand Surgery will continue to follow the patient as a consult. Please call Dr. Cheng Frank' cellphone for any further questions, . Job ID: [id number]
[2019-12-20] MEDS ORDERED: Potassium Chloride 20 MEQ TAB PO SCH (16:30)
[2019-12-20] MEDS: Sodium Chloride 0.9% 1,000 ML IV SCH ×2 (17:20→18:17)
[2019-12-20] MEDS: HumaLOG 300 UNITS/3 ML VIAL SC PRN ×2 (17:22→21:43)
--- NOTE | 2019-12-20 18:10 | PDOC.EVN ---
Event Note - Event Note Event Note: The patient's IV was leaking on the left side. He states he is tired of people trying to get an IV and poking him and is refusing IV access. He requests to be switched to oral. He understands this could cause worsening infection without adequate culture results but still willing to try this Will switch to bactrim and augmentin for now since culture is showing alpha hemolytic strep
[2019-12-20] MEDS: traZODone HCl 50 MG TAB PO SCH (21:00)
[2019-12-20] MEDS: Prazosin HCl 1 MG CAP PO SCH (21:01)
[2019-12-20] MEDS: Sulfameth/Trimethoprim DS 800-160mg TAB PO SCH (21:01)
[2019-12-20] MEDS: Amoxicillin/Potassium Clav 875 MG TAB PO SCH (21:01)
[2019-12-21] MEDS: Sodium Chloride 0.9% 1,000 ML IV SCH (06:40)
[2019-12-21] MEDS ORDERED: Doxycycline 100 MG CAP PO SCH (09:00)
[2019-12-21] MEDS: Amoxicillin/Potassium Clav 875 MG TAB PO SCH (10:39)
[2019-12-21] MEDS: DULoxetine 30 MG CAP PO SCH (10:39)
[2019-12-21] MEDS: Aripiprazole 2 MG TAB PO SCH (10:39)
[2019-12-21] MEDS: Enoxaparin Sodium 40 MG/0.4 ML SYRINGE SC SCH (10:41)
[2019-12-21] MEDS: Clotrimazole 1 % Cream 30 GM TUBE TOP SCH (10:44)
[2019-12-21] MEDS: cefTRIAXone\\ROCEPHIN 250 MG VIAL IM SCH ×2 (10:44→10:46)
[2019-12-21] MEDS: Sulfameth/Trimethoprim DS 800-160mg TAB PO SCH (10:56)
[2019-12-21] MEDS: HumaLOG 300 UNITS/3 ML VIAL SC PRN (13:11)
--- NOTE | 2019-12-21 14:27 | PDOC.DS.DS ---
Provider - Provider Date of Admission: 12/18/19 22:16 Date of Discharge: 12/21/19 Admitting Provider: Dilan Jones Consultations: None (Hand surgery) Primary Care Physician: [facility] Clinic Course - Hospital Course Hospital Course: Right hand abscess: patient presented with severe right hand pain after injecting himself with methamphetamine. He underwent incision and drainage 12/19. Cultures are growing alpha hemoltyic strep. He was on vancomycin and zosyn and switched to bactrim and augmentin pending culture results. He did well with this and denies any significant hand pain. He will be switched to augmentin and doxycycline on discharge due to concomitant orchitis. Blood cultures are negative. His drain was removed. He will follow up with Dr. Frank some time next week . Testicular pain/swelling: he reports intermittent pain and swelling for a year, worst with standing up. Syphilis and HIV were negative. HE did have erythema on exam diffusely and tenderness to palpation bilaterally with a small knot felt on right side. Testicular ultrasound showed mass like appearance. Urology was consu lted and thought this was chronic epididymitis. He will be discharged on doxycycline for three weeks per urology recommendations. Follow up with Dr. Frost in 3-4 weeks if there is no improvement. He was given ceftriaxone IM one dose empirically to cover for gonorrhea. Chlamydia/gonorrhea testing is pending. History of methamphetamine abuse/Anxiety/Schizohprenia/PTSD/Depression: [facility] was consulted and patient was given resources for substance abuse. He refused ronny ting for hep B and C. He does have a history of hep C in the past that was cured per patient . He reported hearing voices, but denied any suicidal ideation at the time of discharge. He was resumed on his cymbalta, sertraline, prazosin, trazodone. Hyponatremia: sodium improved to 130. The patient refused repeat BMP today. Consider repeat BMP in a week. Type I diabetes: the patient will resume his home lantus. HbA1C was 8.2. Consider seeing an shoemaker apprentice on discharge. Alcohol use: continue naltrexone Pertinent Studies: Testicular Ultrasound: testicles are unremarkable. Head of epididymis is prominent bilaterally having mass like appearance on ultrasound. Increased blood flow to the head of both epidydmides. Small bilateral hydroceles. Right hand X ray: soft tissue swelling dorsally over the metacarpals Resuscitation Status: 10/27/20 22:35 Resuscitation Status Routine Co-Sign Provider: Resuscitation Status: FULL: Full Resuscitation Discussed with: Patient - Labs Lab Results: 12/20/19 09:26 12/20/19 09:26 Abnormal Lab Results - Last 48 hrs 12/19/19 20:50: Vancomycin Trough 31.1 H* 12/20/19 09:26: Sodium 130 L, Potassium 3.4 L, Chloride 97 L 12/20/19 09:26: Hct 41.0 L, MPV 6.5 L Microbiology - Entire Visit 12/19/19 14:15 Urine clean catch Urine Culture - Final NO GROWTH AT 48 HOURS 12/19/19 15:59 Hand - Right Bacterial Culture - Preliminary Alpha-Hemolytic Streptococcus 12/19/19 15:59 Hand - Right Anaerobic Culture - Pending 12/19/19 16:00 Hand - Tissue Direct Acid Fast Bacilli Smear - Final 12/19/19 16:00 Hand - Tissue Acid Fast Bacilli Smear - Pending 12/19/19 16:00 Hand - Tissue Acid Fast Bacilli Culture - Pending 12/18/19 20:34 Venous blood - Right Hand Blood Culture - Preliminary NO GROWTH AT 48 HOURS 12/18/19 20:34 Venous blood - Right Arm Blood Culture - Preliminary NO GROWTH AT 48 HOURS - Physical Exam Vitals: Vital Signs (12 hours) Temp Pulse Resp BP Pulse Ox 12/21/19 08:27 98.3 F 79 18 120/73 98 12/21/19 03:30 98.0 F 81 16 123/66 98 Weight Admit Weight 155 lb Weight 155 lb Physical Exam: The patient was seen and examined on the day of discharge. General Appearance: NAD. negative: awake alert (very sleepy) ENT: normocephalic atraumatic Neck: supple, symmetric Heart: RRR, Respiratory: CTAB, no wheezes, no rales, no ronchi Gastrointestinal: non-distended Neurological: no weakness Musculoskeletal - other findings: dressing removed, minimal hand swelling, mild tenderness to palpation. Open wound with mild serosanguineous discharge Problem - Discharge Plan Assessment: Follow up with Dr. Frank next week and Dr. Frost if no improvement in testicular pain. Consider hepatitis B and C testing as an outpatient and follow up chlamydia/gonorrhea results. Get a repeat BMP in a week to follow up hyponatr emia. - Time spent with Patient (mins): 35 Plan - Discharge Medications Prescriptions: Amoxicillin/Potassium Clav [Augmentin] 875 mg PO Q12HR #12 tab Doxycycline [Vibramycin] 100 mg PO BID #42 cap Home Medications: Medication Instructions Recorded Confirmed Type Aripiprazole [Abilify] 2 mg PO DAILY 12/19/19 12/19/19 History DULoxetine [Cymbalta] 30 mg PO BID 12/19/19 12/19/19 History Gabapentin [Neurontin] 800 mg PO TID 12/19/19 12/19/19 History Ibuprofen/Diphenhydramine HCl 1 capsule PO HS 12/19/19 12/19/19 History [Ibuprofen PM Softgel] Insulin Detemir [Levemir] 40 unit SQ BID 12/19/19 12/19/19 History Naltrexone HCl 50 mg PO DAILY 12/19/19 12/19/19 History Naltrexone Microspheres [Vivitrol] 380 mg IM Q28D 12/19/19 12/19/19 History Prazosin HCl 1 mg PO HS 12/19/19 12/19/19 History Sertraline HCl [Zoloft] 50 mg PO DAILY 12/19/19 12/19/19 History hydrOXYzine Pamoate [Vistaril] 50 mg PO TID PRN 12/19/19 12/19/19 History traZODone HCl [Trazodone HCl] 50 mg PO HS 12/19/19 12/19/19 History Amoxicillin/Potassium Clav 875 mg PO Q12HR #12 tab 12/21/19 Rx [Augmentin] Doxycycline [Vibramycin] 100 mg PO BID #42 cap 12/21/19 Rx Allergies: codeine [From Tylenol-Codeine #3] Allergy (Intermediate, Verified 05/10/19 09:58) NAUSEA, RASH/HIVES acetaminophen Allergy (Verified 05/10/19 09:58) Iodinated Contrast Media [Iodinated Contrast Media - Oral and] Allergy (Verified 05/10/19 09:58) per pt shellfish derived Allergy (Verified 05/10/19 09:58) - Discharge Instructions Activity:: Activity as Tolerated Nourishment:: Diabetic Diet - Follow up Plan Referrals: [facility] [Primary Care Provider] - Disposition: HOME Quality - Care Measures CORE MEASURES:: N/A - Stroke/TIA Did you prescribe antithrombotic therapy?: No Specify reason for no DC antithrombotic therapy: Treatment not indicated Did you prescribe anticoagulant for A Fib/Flutter?: No Specify reason for no DC anticoagulant: Treatment not indicated
[2019-12-21] MEDS ORDERED: cefTRIAXone\\ROCEPHIN 250 MG VIAL IM SCH (14:45)
[2019-12-21 17:00] VITALS: BP 139/82; TEMP 98.2
--- NOTE | 2019-12-22 19:10 | PRG ---
DATE OF SERVICE: 12/21/2019 SUBJECTIVE: The patient is a 39-year-old male, seen today postoperative day 2, status post incision, drainage, and washout of dorsal right hand abscess. He is doing well. He denies any fevers. His pain is well controlled. He has been completing his IV antibiotics as previously prescribed and completing his hand soaks without issue. PHYSICAL EXAMINATION: GENERAL: The patient is resting comfortably in bed. He is awake and alert and oriented x3. He has good mental status and denies any suicidal ideations today. He has a one-on-one supervisor pipelines in the room with him. RIGHT HAND/WRIST: There is a José drain overlying the dorsal aspect of the right hand. There are no areas of purulent drainage. All his flexor and extensor tendon functions are grossly intact; there is no erythema, no purulent drainage noted from the wound. All fingers are neurovascularly intact. There is no adenopathy and there is no lymphangitis or streaking of the forearm. Overall, examination is improved compared to previous exam. LABORATORY DATA: Culture and sensitivities are pending. ASSESSMENT AND PLAN: Postoperative day #2, status post right hand incision, drainage, and washout. Olean drain was removed by me today at bedside. He was instructed to continue with his hand soaks 3 to 4 times a day for 30-minute intervals. He may be discharged on oral antibiotics as per internal medicine recommendations. I will see him back for followup next week any day of the week in my hand surgery clinic. He will call and schedule appointment on Tuesday morning. He may perform active range of motion exercises and daily dressing changes as well after each soak. Job ID: [id number]
[2019-12-23 15:00] LABS: Chlam.trachomatis by PCR,Urine Not Detected (NotDetected)
--- NOTE | 2019-12-24 03:59 | PQF ---
CLINICAL DOCUMENTATION CLARIFICATION FORM: Dear : Cheng Frank Date / Time: 12/24/2019 Please exercise your independent, professional judgment in responding to the clarification form. Clinical indicators are provided on the bottom of this form for your review Based on your clinical judgment, can you please specify the depth of patientfs incision and drainage? Please check appropriate box(es): Incision and Drainage: Depth: [ x ] Skin [ x ] Subcutaneous [ ] Fascia [x ] Muscle [ ] Tendon [ ] Bone [ ] Other procedure diagnosis [ ] Unable to determine Physician Signature: Date/Time: For continuity of documentation, please document condition throughout progress notes and discharge summary. Thank You. To be completed by CDI/Coding staff for physician review: Present Clinical Indicators - Signs / Symptoms / Labs Results and Location in Medical Record [X] A longitudinal incision was made after local anesthetic was infiltrated in the skin overlying area of the abscess over the dorsum of the right hand in the area between the second and third metacarpal rays. Operative report 12/18 Dr Frank [X] The incision was made using a 15 blade scalpel. Purulent drainage was noted immediately upon making a skin incision. Operative report 12/18 Dr Frank [X] I was able to drain the abscess completely. I used approximately 6 L of sterile saline solution to washout the wound I investigated the spaces between adductor muscles and also within interossei and there was no purulence noted. Operative report 12/18 Dr Frank [X] The abscess appeared to be superficial to the extensor tendons. Present Risk Factors Results and Location in Medical Record [X] Dorsal Right hand abscess Operative report 12/18 Dr Frank [X] Sepsis H&P p3 12/17 Dr Antunez [X] Cellulitis H&P p3 12/17 Dr Antunez Present Treatments Results and Location in Medical Record [X] Incision, drainage and washout of dorsal right hand abscess Operative report 12/18 Dr Frank [X] IV Vancomycin 1.5 APR 30 [X] IV Zosyn 4.5 gm APR 30 CDS/Charge Entry Specialist Signature: Sharmin Eugenemoody Phone #: [phone] Date/Time: 12/24/20199 This is a permanent part of the Medical [facility]
[2019-12-24 13:14] LABS: Fungus Stain Final report (.)
== END 2019-12-21 17:35 | disposition home or self-care (01) | DRG 854 ==
LOC: ERS 19:20 → SURG A 22:16
PROVIDERS: ADMIT Internal Medicine; ATTEND Internal Medicine
PROC: 0K9C0ZZ Drainage of Right Hand Muscle, Open Approach (ICD-10-PCS; principal; 2019-12-19)
DX: A41.9 Sepsis, unspecified organism (principal); L02.511 Cutaneous abscess of right hand; E87.1 Hypo-osmolality and hyponatremia; B37.49 Other urogenital candidiasis; R45.851 Suicidal ideations; L03.113 Cellulitis of right upper limb; Z20.828 Contact with and (suspected) exposure to other viral communicable diseases; N45.1 Epididymitis; F15.10 Other stimulant abuse, uncomplicated; F41.9 Anxiety disorder, unspecified; F20.9 Schizophrenia, unspecified; F43.10 Post-traumatic stress disorder, unspecified; F32.9 Major depressive disorder, single episode, unspecified; F10.10 Alcohol abuse, uncomplicated; G40.909 Epilepsy, unspecified, not intractable, without status epilepticus; A51.0 Primary genital syphilis; E10.65 Type 1 diabetes mellitus with hyperglycemia; F12.10 Cannabis abuse, uncomplicated; N43.3 Hydrocele, unspecified; B95.4 Other streptococcus as the cause of diseases classified elsewhere; Y90.0 Blood alcohol level of less than 20 mg/100 ml; Z28.21 Immunization not carried out because of patient refusal; Z88.8 Allergy status to other drugs, medicaments and biological substances; Z91.041 Radiographic dye allergy status; Z88.5 Allergy status to narcotic agent; Z91.013 Allergy to seafood; Z91.19 Patient's noncompliance with other medical treatment and regimen; Z86.19 Personal history of other infectious and parasitic diseases; Z79.899 Other long term (current) drug therapy; Z79.4 Long term (current) use of insulin
CPT/HCPCS: 36415; 36416; 76870; 80048; 80053; 80202; 80306; 80307; 81003; 81015; 83036; 83605; 83690; 83930; 83935; 84443; 84484; 85025; 85027; 86140; 86780; 87040; 87070; 87077; 87086; 87102; 87116; 87186; 87205; 87206; 87389; 87491; 87591; 87635; 93005; 93306; 93976; 96365; 96367; J0696; J1650; J1815; J1885; J2060; J2270; J2405; J2543; J2704; J3010; J3370; J3490; S0020; U0002; U0003

== ENCOUNTER 2020-02-16 23:47 | Inpatient (IN) | payer SELFPAY ==
[2020-02-17] MEDS ORDERED: Ketorolac Tromethamine 30 MG/ML VIAL ONE (00:41)
--- NOTE | 2020-02-17 01:07 | PDOC.FPRHP ---
- History of Present Illness Chief Complaint: Right hand redness History of Present Illness: Patient is a 39 year old male with a history of DM1 and chronic methamphetamine use who presents to the ED with complaints of right hand edema and erythema x 4 days. Purulent drainage x 1 day. Denies fever, chills, and night sweats. Patient was previously admitted for right hand abscess from 12/18/19-12/21/19. Underwent I&D on 12/19. Culture + streptococcus mitis that was uribe sensitive. Discharged home on augmentin and doxycyclin due to concomitant orchitis. Instructed to f/u with Dr. Frank but never did. Patient reports removing sutures himself. Symptoms never completely resolved. Current site of infection is at previous I&D site. Patient was seen at [facility] earlier today. Given Vanc, Zosyn, 1L NS and regular insulin 10 units. BG was 629. Trop < 0.01. Blood cultures drawn. ED Course: In the ED, patient given toradol 30mg for pain. POC glucose was 372. XR taken, read pending. Dr. Aguillon, [facility], was consulted and recommended IV abx therapy. Will see patient in the am. - Allergies/Adverse Reactions Allergies Allergy/AdvReac Type Severity Reaction Status Date / Time Iodinated Contrast Media Allergy Verified 05/10/19 09:58 [Iodinated Contrast Media - Oral and] shellfish derived Allergy Verified 05/10/19 09:58 - Home Medications Medication Instructions Recorded Confirmed Type Aripiprazole [Abilify] 2 mg PO DAILY 12/19/19 02/17/20 History DULoxetine [Cymbalta] 30 mg PO BID 12/19/19 02/17/20 History Gabapentin [Neurontin] 800 mg PO TID 12/19/19 02/17/20 History Ibuprofen/Diphenhydramine HCl 1 capsule PO HS 12/19/19 02/17/20 History [Ibuprofen PM Softgel] Insulin Detemir [Levemir] 40 unit SQ HS 12/19/19 02/17/20 History Naltrexone HCl 50 mg PO DAILY 12/19/19 02/17/20 History Naltrexone Microspheres [Vivitrol] 380 mg IM Q28D 12/19/19 02/17/20 History Prazosin HCl 1 mg PO HS 12/19/19 02/17/20 History Sertraline HCl [Zoloft] 50 mg PO DAILY 12/19/19 02/17/20 History hydrOXYzine Pamoate [Vistaril] 50 mg PO TID PRN 12/19/19 02/17/20 History traZODone HCl [Trazodone HCl] 50 mg PO HS 12/19/19 02/17/20 History Insulin Detemir [Levemir] 60 unit SQ QAM 02/17/20 02/17/20 History - History PMHx: DM1, neuropathy, hep c s/p treatment, seizures, anxiety, depression, PTSD, schizophrenia PSHx: Granuloma removal, hernia repair, I&D of right hand abscess on 12/20/19 FHx: Noncontributory Social: Denies hx of tobacco use. Denies ETOH use. Admits to marijuana and methamphetamine use. - Review of Systems General: denies: fever/chills, night sweats Eyes: denies: eye pain, vision changes ENT: reports: nasal congestion, rhinorrhea Respiratory: reports: congestion. denies: cough, shortness of breath Cardiovascular: denies: chest pain, palpitation, edema Gastrointestinal: denies: nausea, vomiting, diarrhea, constipation, abdominal pain Genitourinary: denies: dysuria, polyuria Skin: reports: other (open sore to right forearm s/p attempt to I&D at home) Musculoskeletal: reports: pain (right hand), swelling (right hand). denies: tenderness Neurological: denies: numbness, weakness - Vital signs BP 134/83, HR 93, RR 20, Temp 98.5, O2 sat 100% RA, Weight 54kg - Physical Exam Constitutional: NAD, awake, alert and oriented HEENT: normocephalic and atraumatic, MMM Neck: supple, FROM Chest: no-tender to palpation Heart: RRR, normal S1/S2, pulses present, no edema Lungs: CTAB, no respiratory distress, good air movement Abdomen: soft, non-tender, bowel sounds present -Musculoskeletal: ROM of right hand limited due to edema -Neurological: A&Ox4 -Skin: Erythema, edema and abscess measuring ~ 1 x 1 cm with purulent drainage to dorsal aspect of right hand. Open sore to right forearm. Puncture lee present along forearms bilaterally. Numerous tattoos. Heme/Lymphatic: no purpura, no petechia Psychiatric: normal mood and affect FMR H&P: Results - Labs Result Diagrams: 02/17/20 06:25 02/17/20 06:25 FMR H&P: A/P - Plan Right hand abscess Prior I&D on 12/20/19 without adequate treatment. Hx medical noncompliance, uncontrolled DM contributing. Afebrile. -Admit to medical inpatient -Dr. Aguillon consulted in ED. F/u recs -Given Vanc and Zosyn in ED. Continue -S/p 1 L NS in ED. Start LR @ 90 for maintanence fluids -Wound consult -F/u blood cultures -Order wound cultures DM1 Denies taking insulin since 12/10. BG 629 in ED -> 372 s/p 10 units regular insulin -10 units lantus now -Lantus 10 units BID -Moderate SSI -BG check Q4H Hx methamphetamine use Last use this am -HIV, hepatitis panel, RPR -Counselled about abstinence Neuropathy Previously took gabapentin. -Start gabepentin 100mg TID Anxiety Depression PTSD Schizophrenia Not currently taking medication. Occasionally takes Zoloft -Sertraline 25mg daily Seizures -Not on medication -Monitor Nicotine dependence Smokes 1/2 ppd -Nicotine patch Hep C s/p treatment -Aware PCP: [facility] Code: FULL DVT ppx: SCDs Diet: NPO Dispo: Admit to medicine inpatient, expected LOS > 48 hours FMR H&P: Upper Level - Plan Date/Time: 02/17/20 0106 ICele, have evaluated this patient and agree with findings/plan as outlined by r d internship resident. Pertinent changes/additions are listed here. HPI: 39 yo M with PMH of IV drug abuse and T1DM presents for right hand pain and swelling for the past 4 days. He is a transfer patient from [facility]. He reports he developed a pimple that popped over the area 2 days ago and the area has been draining pus and serosanguinous fluid since that time. Patient had an I&D done 2 months ago here, but did not follow up with his surgeon. He reports he took out his stitches himself. At that time, cx grew streptococcus mitis which was pansensitive. He reports he has not been on his diabetic medications since his last hospitalization. He reports he last used IV meth yesterday morning. At [facility] ED, WBC were normal. CRP was elevated. LA of 2.1. BS in the 600s. CMP showed no anion gap. He was given 10 units insulin, fluids, vanc and zosyn. Blood cultures were collected. He was transferred to our ED. Dr. Aguillon was consulted from the ED. He recommends IV antibiotic treatment, with likely I&D on Tuesday when a hand surgeon is also available to assist in the case. 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 A/P: Cellulitis with Abscess, Right hand, in an uncontrolled T1DM -S/p IVF, Vanc and Zosyn at [facility]. [place] is high risk for MRSA due to IV drug abuse, and pseudomonas due to uncontrolled diabetes -Continue vanc and zosyn -Blood cultures from [facility] pending -No murmur heard on cardiac exam to suggest endocarditis at this time -Ortho, Dr. Aguillon, Consulted from ED. Appreciate recs. Plan for likely I&D on Tuesday after IV antibiotic management. IV drug abuse -discharged from inpatient facility December 2019 per patient; reports he used meth the same day of discharge -Check Hep B, HIV, RPR -Hx of Hep C s/p treatment, consider viral load testing -No murmur on exam Uncontrolled T1DM -BS now in the 300s, no anion gap -accuchecks q4h, mod SSI -Reports he should be on 60 u lantus QAM, and 40 u QPM -Give additional 10 u insulin now, scheduled 10u BID starting tomorrow morning. Titrate as needed. For management of other chronic problems, see interns note. Dispo: Admit to medical inpatient Diet: allowed him to eat a meal @ 2 am, NPO now since 3 AM GI ppx: none IVF: MIVF DVT ppx: SCDs PCP: none, CC Code status: Full Dispo: Admit to inpatient medical for antibiotics. Blood cultures collected at [facility]. Orthopedics consulted and plans to see in the AM. Addendum - Attending - Attending Attestation Date/Time: 02/17/20 1000 I personally evaluated the patient and discussed the management with Dr. Estrada. I agree with the History, Examination, Assessment and Plan documented above with any addition or exceptions noted below. The patient presents with right hand pain. He had previous infection but didn't take his antibiotics or f/u with specialists. Purulent drainage coming from hand and probing goes down to bone. Getting MRI to look for osteomyelitis. Continue antibiotics. Ortho is consulted.
[2020-02-17] MEDS ORDERED: Ondansetron ODT 4 MG TAB PO PRN (01:50)
[2020-02-17] MEDS ORDERED: Ondansetron PF 4 MG/2 ML Vial IVP PRN (01:50)
[2020-02-17] MEDS ORDERED: Dextrose 5% in Water 1,000 ML IV PRN (02:24)
[2020-02-17] MEDS ORDERED: Dextrose 50% Abboject 50 ML SYRINGE SLOW IVP PRN (02:24)
[2020-02-17 02:40] VITALS: BMI 18.6
[2020-02-17] MEDS: Nicotine 14 MG PATCH TD SCH (02:50)
[2020-02-17] MEDS ORDERED: Insulin Glargine 10 UNITS in Pre-Filled Syringe 1 EACH SC SCH ×3 (03:00→16:45)
[2020-02-17] MEDS: Piperacillin/Tazobactam 3.375 GM in Sodium Chloride 0.9% 100 ML IVPB SCH ×4 (03:42→21:04)
[2020-02-17] MEDS: Lactated Ringer's 1,000 ML IV SCH ×2 (03:43→15:17)
[2020-02-17] MEDS: HumaLOG 300 UNITS/3 ML VIAL SC PRN ×3 (03:54→21:19)
[2020-02-17] MEDS ORDERED: Ketorolac Tromethamine 30 MG/ML VIAL IVP SCH (04:00)
[2020-02-17 06:43] LABS: #Eosinphils 0.1 thou/uL (0.0-0.7); #Lymphocytes 1.9 thou/uL (1.20-3.40); #Monocytes 0.6 thou/uL (0.11-0.59); #Neutrophils 6.6 thou/uL (1.40-6.50); %Basophils 0.3 % (0.0-1.0); %Eosinophils 0.9 % (0.0-10.0); %Lymphocytes 20.6 % (21.0-51.0); %Monocytes 6.4 % (0.0-10.0); %Neutrophils 71.8 % (42.0-75.0); Hemoglobin 13.8 g/dL (14.0-18.0); Mean Corpuscular HGB CONC 34.6 g/dL (32.0-36.0); Mean Corpuscular Hemoglobin 28.9 pg (27.0-31.0); Mean Corpuscular Volume 83.6 fL (78.0-98.0); Mean Platelet Volume 6.3 fL (7.4-10.4); Platelet Count 279 thou/uL (130-400); RBC Distribution Width 12.2 % (11.5-14.5); Red Blood Cell (RBC) Count 4.77 mill/uL (4.70-6.10); White Blood Cell (WBC) Count 9.1 thou/uL (4.8-10.8)
[2020-02-17 07:06] LABS: ALT (SGPT) Less than 7 U/L (8-55); AST (SGOT) 11 U/L (5-34); Albumin 3.4 g/dL (3.5-5.0); Alkaline Phosphatase 139 U/L (40-110); Anion Gap 13 mmol/L (10-20); BUN (Urea Nitrogen) 7 mg/dL (8.9-20.6); Bilirubin, Total 0.5 mg/dL (0.2-1.2); Calc. Creatinine Clearance 99 mL/min (70-130); Calcium 8.6 mg/dL (7.8-10.44); Carbon Dioxide 24 mmol/L (22-29); Chloride 98 mmol/L (98-107); Globulin 3.7 g/dL (2.4-3.5); Glucose 360 mg/dL (70-105); Potassium 3.9 mmol/L (3.5-5.1); Protein, Total 7.1 g/dL (6.0-8.3); Sodium 131 mmol/L (136-145)
[2020-02-17 07:26] LABS: HBCM Index 0.08 S/CO (0-0.79); HBSAg Index 0.25 S/CO (0-0.99); HIV (1/2) Antibody/Antigen Non-Reactive (NonReactive); HIV 1/2 INDEX 0.07 S/CO (<1.00); Hep A IgM AB Non-Reactive (NonReactive); Hep A IgM S/CO 0.32 S/CO (0-0.79); Hep B Surf Ag Non-Reactive S/CO (NonReactive); Hepatitis B Core IgM Abs Non-Reactive (NonReactive)
[2020-02-17 07:52] LABS: Hep C IgG Ab Reflex HepC Qnt (NonReactive); Hep C Index 8.65 S/CO (0-0.79)
[2020-02-17 08:13] LABS: Syphilis Antibody Nonreactive (Nonreactive); Syphilis Antibody Index 0.05 S/CO (<1.00 Non-Reactive)
[2020-02-17] MEDS ORDERED: Insulin Glargine 30 UNITS in Pre-Filled Syringe 1 EACH SC SCH (09:00)
[2020-02-17] MEDS ORDERED: Insulin Glargine 20 UNITS in Pre-Filled Syringe 1 EACH SC SCH (09:00)
[2020-02-17 09:05] LABS: Lactic Acid 0.8 mmol/L (0.5-2.2)
[2020-02-17] MEDS: Gabapentin 100 MG CAP PO SCH ×3 (09:42→21:03)
[2020-02-17] MEDS: Aripiprazole 2 MG TAB PO SCH (09:42)
[2020-02-17] MEDS ORDERED: Magnevist 469MG/ML 20 ML VIAL ONE (09:42)
[2020-02-17] MEDS ORDERED: Acetaminophen 325 MG TAB PO PRN (09:49)
--- NOTE | 2020-02-17 10:03 | RAD ---
Exam:Right hand 3 views HISTORY: Pain. Infection. COMPARISON: 12/18/2019 FINDINGS: There is a partially calcified density along the dorsal soft tissues in between the second and third metacarpal carpal. No fracture, cortical irregularity or periosteal reaction. Joint spaces are preserved. IMPRESSION: 1. Partially calcified lesion in the dorsal soft tissues as described above. Soft tissue changes from remote infection or hematoma is a consideration. 2. No erosive or destructive changes of the osseous structures to suggest a radiographic evidence of osteomyelitis.
[2020-02-17] MEDS: Morphine 2 MG/ML VIAL SLOW IVP PRN ×3 (10:36→21:18)
[2020-02-17] MEDS: Vancomycin 1 GM in Premix Bag 1 BAG IVPB SCH ×2 (12:33→23:10)
--- NOTE | 2020-02-17 12:59 | MRI ---
EXAM: MRI Upper Ext No Jt Rt W WO DATE: 02/17/2020 11:33 AM INDICATION: History of right hand osteomyelitis COMPARISON: Right hand radiograph dated February 17, 2020 FINDIN cc of Multi[employer] was utilized for the exam. There is a large abscess involving the dorsal aspect of the right hand contiguous with the tendon she ath of the extensor tendons of the index finger as well as the extensor digitorum communis tendon sheath. The abscess and tenosynovitis measures 4.2 x 2.4 cm. There is complete disruption of the righ t extensor indicis proprius and extensor digitorum contributions to the left index finger. There is diffuse cellulitis involving the dorsal aspect of the right hand. There is suspected T synovitis invo lving the second and third dorsal compartments of the right hand. There is mild tendinosis of the ECU tendon. Flexor tendons appear within normal limits. No overt marrow signal abnormality is seen ju st presence of osteomyelitis. IMPRESSION: 1. Large abscess involving the dorsal aspect of the hand contiguous with the tendon sheaths of the ex tensor tendons of the index finger as well as the extensor digitorum communis tendon sheath at the wrist. Extensive dorsal right hand cellulitis. Complete disruption of the right extensor indicis prop rius and right index finger contribution of the extensor digitorum tendons. There is tenosynovitis involving the second, third and fourth dorsal compartments. 2. Mild ECU tendinosis. 3. No evidence to suggest right hand osteomyelitis.
[2020-02-17 15:26] LABS: Amphetamine Detected (NotDetected); Barbiturates Screen Not Detected (NotDetected); Benzodiazepine Screen Not Detected (NotDetected); Cocaine Metabolite Screen Not Detected (NotDetected); Medtox Control Line Valid? VALID (VALID); Medtox Reader # READER 1; Methadone Not Detected (NotDetected); Methamphetamine Detected (NotDetected); Opiate Screen Detected (NotDetected); Oxycodone Screen Not Detected (NotDetected); Phencyclidine (PCP) Not Detected (NotDetected); THC/Cannabinoid Screen Detected (NotDetected); Tricyclic Screen Not Detected (NotDetected)
--- NOTE | 2020-02-17 18:40 | CON ---
DATE OF CONSULTATION: 02/17/2020 CHIEF COMPLAINT: Right hand infection. HISTORY OF PRESENT ILLNESS: Mr. Bolton is a 39-year-old male who was in the hospital approximately 2 months ago for an infection over his right hand. This was treated with Dr. Frank. He had irrigation and debridement at that time. He was treated with intravenous antibiotics. He reports finishing his antibiotics and taking care of his wound, however, his infection has recurred. It is unclear exactly what he has been doing with his wound. It is known that he is a IV drug user. The patient did not follow up with Dr. Frank. He presented to the emergency department last night with an infection with increased drainage, increased pain, and swelling of the hand. He has been admitted to the hospital for intravenous antibiotics. His blood glucose was very high at 700 upon his presentation to the hospital, it has come down into the 300s. I was consulted to evaluate the hand, which I am doing so this morning. He has been scheduled for an MRI of the upper extremity as well. REVIEW OF SYSTEMS: Positive for right hand pain as well as elbow pain. Otherwise, he denies positive review of systems. PAST MEDICAL HISTORY: Diabetes, neuropathy, hepatitis C, seizures, anxiety, depression, PTSD, schizophrenia. PAST SURGICAL HISTORY: Granuloma removal, hernia repair, previous irrigation and debridement of right hand abscess with Streptococcus on cultures. FAMILY MEDICAL HISTORY: Noncontributory. SOCIAL HISTORY: The patient is a methamphetamine user as well as marijuana. He denies alcohol or tobacco use. IMAGES: X-rays of the right hand demonstrate soft-tissue calcification and swelling dorsally. There are no obvious erosive changes of the bone. MRI is pending currently. PHYSICAL EXAMINATION: VITAL SIGNS: Temperature is 99.2, pulse is 86, respiratory rate of 16, oxygen saturation 99%, blood pressure is 136/84. GENERAL: He is alert, lying supine, no apparent distress. Breathing comfortably. HEENT: Normocephalic, atraumatic. EXTREMITIES: Right upper extremity has obvious infection of the dorsal hand. There is purulent material which is expressible. He is tender to palpation of the dorsal hand. He also has an area of swelling and fluctuance over the lateral elbow. He has another small wound over the mid forearm. IMPRESSION: Intravenous drug user with recurrent abscess formation over his right hand. PLAN: At this point, the patient looks that he will need an irrigation and debridement procedure. He does not want surgery today as he wants to be able to the eat and drink. I will schedule him for surgery tomorrow. He is aware that he has risk of complications such as recurrent infection, deep infection down into the bone or deeper tissues, wound healing problems, and others. Goal will be to eradicate infection with irrigation as well as intravenous antibiotic treatment. The patient is at high risk for recurrence given his lifestyle. He will be n.p.o. at midnight. Job ID: [id number]
[2020-02-18] MEDS: Morphine 2 MG/ML VIAL SLOW IVP PRN ×5 (01:14→20:32)
[2020-02-18] MEDS: Lactated Ringer's 1,000 ML IV SCH ×2 (01:14→16:03)
[2020-02-18] MEDS: Nicotine 14 MG PATCH TD SCH (01:14)
[2020-02-18] MEDS: HumaLOG 300 UNITS/3 ML VIAL SC PRN ×3 (01:14→16:10)
[2020-02-18] MEDS: Piperacillin/Tazobactam 3.375 GM in Sodium Chloride 0.9% 100 ML IVPB SCH ×4 (05:08→21:44)
[2020-02-18 06:45] LABS: #Basophils 0.1 thou/uL (0.0-0.2); #Eosinphils 0.1 thou/uL (0.0-0.7); #Lymphocytes 1.9 thou/uL (1.20-3.40); #Monocytes 0.5 thou/uL (0.11-0.59); #Neutrophils 4.3 thou/uL (1.40-6.50); %Basophils 1.2 % (0.0-1.0); %Eosinophils 1.6 % (0.0-10.0); %Monocytes 7.6 % (0.0-10.0); %Neutrophils 62.6 % (42.0-75.0); Hemoglobin 13.8 g/dL (14.0-18.0); Mean Corpuscular HGB CONC 34.3 g/dL (32.0-36.0); Mean Corpuscular Hemoglobin 28.7 pg (27.0-31.0); Mean Corpuscular Volume 83.5 fL (78.0-98.0); Mean Platelet Volume 6.3 fL (7.4-10.4); Platelet Count 307 thou/uL (130-400); RBC Distribution Width 12.2 % (11.5-14.5); Red Blood Cell (RBC) Count 4.81 mill/uL (4.70-6.10); White Blood Cell (WBC) Count 6.9 thou/uL (4.8-10.8)
--- NOTE | 2020-02-18 07:02 | PDOC.FM ---
- Subjective Subjective: No acute events overnight. NPO for surgery this AM. Pain better controlled. Denies CP, SOB, n/v, abd pain, fever/chills. - Objective MAR Reviewed: Yes Vital Signs & Weight: Vital Signs (12 hours) Temp Pulse Resp BP Pulse Ox 02/18/20 04:40 98.0 F 76 16 128/82 98 02/18/20 00:00 99.1 F 80 18 137/85 99 02/17/20 20:00 98.6 F 02/17/20 19:45 86 18 132/89 98 Weight Weight 53.977 kg I&O: 02/16/20 02/17/20 02/18/20 06:59 06:59 06:59 Intake Total 4100 Output Total 4900 Balance -800 Result Diagrams: 02/18/20 06:30 02/18/20 06:30 Phys Exam - Physical Examination Constitutional: NAD (resting comfortably) HEENT: moist MMs Neck: supple Respiratory: no wheezing, no rales, no rhonchi, clear to auscultation bilateral Cardiovascular: RRR, no significant murmur Gastrointestinal: soft, non-tender, no distention, positive bowel sounds Right hand exam, TTP Neurological: moves all 4 limbs Psychiatric: normal affect Dx/Plan (1) Abscess of right hand Code(s): L02.511 - CUTANEOUS ABSCESS OF RIGHT HAND Status: Acute - Plan Plan: 39yo M with h/o DM Type 1, IV drug abuse, schizophrenia, hep c s/p tx who presented for right hand cellulitis with abscess #Right hand cellulitis with abscess - Admitted previously on 12/20/19 with drainage of right hand abscess. Did not follow up with surgeon. - MRI: large abscess continuous with tendon sheaths, no evidence of osteo - Vanc and Zosyn (02/16) - Wound Culture pending - Dr. Aguillon, ortho, consulted, plan for surgery today - BCX pending - morphine and gabapentin for pain # Uncontrolled DM1 - States does not take insulin regularly at home. Home regime is supposed to be Levemir 60u QAm and 40u QPM - On lantus 30u QAM now with aggressive sliding scale, adjust as indicated - Hyperglycemia protocol, Accuchecks - A1C 12 #Hx methamphetamine use - Last used prior to admission. - HIV, RPR negative. Hep C ab positive, RNA pending -Counselled about abstinence #Anxiety, Depression, PTSD, Schizophrenia - Not currently taking medication, but given list of meds he was told to be taking - Cont Zoloft and Abilify #Seizures - Not on medication - Monitor #Nicotine dependence - Smokes 1/2 ppd - Nicotine patch #Hep C s/p treatment -Aware PCP: CC Code: FULL DVT ppx: SCDs Diet: NPO IVF: LR @ 90cc/hr Dispo: Admitted to medicine inpatient, surgery today. Expected LOS > 48 hours Addendum - Attending - Attending Attestation Date/Time: 02/18/20 1212 I personally evaluated the patient and discussed the management with Dr. Mariano. I agree with the History, Examination, Assessment and Plan documented above with any addition or exceptions noted below.
[2020-02-18 07:04] LABS: Chloride 97 mmol/L (98-107); Potassium 3.6 mmol/L (3.5-5.1); Sodium 131 mmol/L (136-145)
[2020-02-18 07:05] LABS: ALT (SGPT) 7 U/L (8-55); AST (SGOT) 11 U/L (5-34); Albumin 3.4 g/dL (3.5-5.0); Alkaline Phosphatase 122 U/L (40-110); Anion Gap 12 mmol/L (10-20); BUN (Urea Nitrogen) 4 mg/dL (8.9-20.6); Bilirubin, Total 0.4 mg/dL (0.2-1.2); Calc. Creatinine Clearance 115 mL/min (70-130); Calcium 8.5 mg/dL (7.8-10.44); Carbon Dioxide 26 mmol/L (22-29); Globulin 3.9 g/dL (2.4-3.5); Glucose 214 mg/dL (70-105); Protein, Total 7.3 g/dL (6.0-8.3)
[2020-02-18] MEDS ORDERED: Insulin Glargine 40 UNITS in Pre-Filled Syringe 1 EACH SC SCH ×2 (09:00→21:00)
[2020-02-18] MEDS: Aripiprazole 2 MG TAB PO SCH (09:01)
[2020-02-18] MEDS: Gabapentin 100 MG CAP PO SCH ×3 (09:02→20:10)
[2020-02-18] MEDS ORDERED: PROPOFOL 200 MG/20 ML VIAL ONE (09:47)
[2020-02-18] MEDS ORDERED: Lidocaine 1% PF 5 ML VIAL ONE (09:47)
[2020-02-18] MEDS ORDERED: Ondansetron PF 4 MG/2 ML Vial ONE (09:47)
[2020-02-18] MEDS ORDERED: Dexamethasone 20 MG/5 ML VIAL ONE (09:47)
[2020-02-18] MEDS ORDERED: PHENYLEPHRINE-NS 100 MCG/ML 10 ML SYRINGE ONE (09:47)
[2020-02-18] MEDS: Vancomycin 1 GM in Premix Bag 1 BAG IVPB SCH ×2 (11:14→21:43)
[2020-02-18] MEDS ORDERED: Fentanyl 100 MCG/2 ML VIAL ONE ×4 (12:17→14:11)
[2020-02-18] MEDS ORDERED: Midazolam HCl 2 mg/2 ml Vial ONE (12:17)
--- NOTE | 2020-02-18 13:26 | OP ---
DATE OF PROCEDURE: 02/18/2020 PROCEDURES PERFORMED: Irrigation and debridement of right dorsal hand abscess and right lateral elbow abscess. PREOPERATIVE DIAGNOSES: Abscess of right hand and abscess of right elbow. POSTOPERATIVE DIAGNOSES: Abscess of right hand and abscess of right elbow. COMPLICATIONS: None. ESTIMATED BLOOD LOSS: Minimal. [employer] ARTILL[employer] CREWMEMBER: Kunal Busby PA-C IMPLANTS: None. INDICATIONS: Mr. Bolton is a 39-year-old male, who is an intravenous drug user. He has had recurrent abscess formation. He has had a previous I and D of his hand, but has a recurrent abscess and infection. He has been indicated now for irrigation and debridement of the hand as well as a forearm abscess. Risks have been reviewed. He wants to proceed. DESCRIPTION OF PROCEDURE: Mr. Bolton was identified in the preoperative holding area. His correct extremity was marked. He was carried to the operating room. He was positioned supine. General anesthesia was induced. A multidisciplinary time-out was performed. The right upper extremity was prepped and draped in sterile fashion. We began the procedure with dorsal incision over the patient's draining wound. We encountered purulent material. This was cultured. There was granulating tissue as well. We extended this proximally and distally. We evacuated any purulent material and thoroughly irrigated with copious lavage. We scraped the wound edges with a curette. We were down to the tendon level. The tendon had some purulent material. At this point, we moved to the proximal arm. An incision was made over his lateral forearm. We dissected down through the subcutaneous tissues to an abscess of the lateral forearm. This was irrigated. We cultured this wound as well. Next, we curetted and scraped the wound edges. We thoroughly irrigated with copious lavage. All cavities were explored. At this point, we loosely closed and packed this wound with iodoform gauze. At this point, a sterile dressing was applied. The patient was taken to the recovery room in good condition without complication. The podiatric assistant was involved in positioning the patient, prepping and drapping, surgical exposure, and wound closure. Job ID: [id number] [facility] ISLANDOfelia
[2020-02-18] MEDS ORDERED: Ondansetron HCl/PF 4 MG/2 ML Vial IVP PRN (13:38)
[2020-02-18] MEDS ORDERED: Promethazine HCl 25 MG/ML VIAL IM PRN (13:38)
[2020-02-18] MEDS ORDERED: Promethazine HCl 25 MG/ML VIAL SLOW IVP PRN (13:38)
[2020-02-18 20:39] LABS: Vancomycin, Trough 7.8 ug/mL
[2020-02-18] MEDS ORDERED: Non-Formulary Item 1 EACH (Insulin Detemir [Levemir] 100 UNIT/ML Vial) SQ SCH (21:00)
[2020-02-19] MEDS: HumaLOG 300 UNITS/3 ML VIAL SC PRN ×5 (00:24→17:42)
[2020-02-19] MEDS: Morphine 2 MG/ML VIAL SLOW IVP PRN ×5 (01:25→20:48)
[2020-02-19] MEDS: Nicotine 14 MG PATCH TD SCH (01:31)
[2020-02-19] MEDS: Lactated Ringer's 1,000 ML IV SCH ×3 (01:31→21:16)
[2020-02-19] MEDS: Piperacillin/Tazobactam 3.375 GM in Sodium Chloride 0.9% 100 ML IVPB SCH ×4 (03:41→20:48)
[2020-02-19] MEDS: Vancomycin 1 GM in Premix Bag 1 BAG IVPB SCH ×3 (05:45→20:48)
--- NOTE | 2020-02-19 07:42 | PDOC.HOSPP ---
- Subjective Encounter Date: 02/19/20 Encounter Time: 10:30 Subjective: Patient sleepy, no complaints. - Objective Vital Signs & Weight: Vital Signs (12 hours) Temp Pulse Resp BP Pulse Ox 02/19/20 04:30 99.2 F 88 18 124/78 98 02/18/20 23:39 99.1 F 86 16 142/88 H 98 02/18/20 19:44 98.5 F 88 18 143/94 H 97 Weight Admit Weight 119 lb Weight 119 lb I&O: 02/18/20 02/19/20 02/20/20 06:59 06:59 06:59 Intake Total 4100 3920 Output Total 4900 3400 Balance -800 520 Result Diagrams: 02/19/20 07:57 02/18/20 06:30 Additional Labs: Accuchecks 02/19/20 02/19/20 02/18/20 05:44 00:23 20:15 POC Glucose 301 H 399 H 458 H 02/18/20 02/18/20 16:09 09:12 POC Glucose 250 H 225 H Hospitalist ROS - Review of Systems Constitutional: denies: fever, chills Respiratory: denies: cough, shortness of breath Cardiovascular: denies: chest pain, palpitations Gastrointestinal: denies: nausea, vomiting, abdominal pain - Medication Medications: Active Medications Generic Name Dose Route Start Last Admin Trade Name Freq PRN Reason Stop Dose Admin Aripiprazole 2 mg 02/17/20 09:00 02/18/20 09:01 Aripiprazole 2 Mg Tab PO 2 mg DAILY PAULINO Administration Gabapentin 100 mg 02/17/20 09:00 02/18/20 20:10 Gabapentin 100 Mg Cap PO 100 mg TID PAULINO Administration Piperacillin Sod/Tazobactam 100 mls @ 200 mls/hr 02/17/20 04:00 02/19/20 03:41 Sod 3.375 gm/ Sodium Chloride IVPB 100 mls 0400,1000,1600,2200 PAULINO Administration Lactated Ringer's 1,000 mls @ 90 mls/hr 02/17/20 03:45 02/19/20 01:31 Lactated Ringer's IV 1,000 mls .Q11H7M PAULINO Administration Vancomycin HCl 1 gm/ Device 200 mls @ 200 mls/hr 02/18/20 21:00 02/19/20 05:45 IVPB 200 mls 0500,1300,2100 PAULINO Administration Insulin Human Lispro 0 units 02/17/20 02:24 02/19/20 05:45 Humalog 300 Units/3 Ml Vial SC 8 unit .MODERATE SLIDING SC PRN Administration Moderate Correctional Scale Insulin Human Lispro 0 units 02/17/20 21:11 02/19/20 00:24 Humalog 300 Units/3 Ml Vial SC 5 unit .BEDTIME SLIDING SC PRN Administration Bedtime Correctional Scale Morphine Sulfate 2 mg 02/17/20 09:48 02/19/20 05:46 Morphine 2 Mg/Ml Vial SLOW IVP 2 mg Q4H PRN Administration Moderate to Severe Pain (6-10) Nicotine 14 mg 02/17/20 02:00 02/19/20 01:31 Nicotine 14 Mg Patch TD 14 mg Q24HR PAULINO Administration Sertraline HCl 50 mg 02/17/20 09:00 02/18/20 09:01 Sertraline Hcl 25 Mg Tab PO 50 mg DAILY PAULINO Administration - Exam General Appearance: NAD General - other findings: sleeping, arousable but not talkative ENT: moist mucosa Heart: RRR, no murmur, no gallops, no rubs Respiratory: CTAB, no wheezes, no rales, no ronchi Gastrointestinal: soft, non-tender, non-distended, normal bowel sounds Extremities - other findings: RUE with dressing in place from hand to elbow, C/D/I Psychiatric: normal affect, normal behavior, lethargic Hosp A/P - Plan 39yo M with h/o DM Type 1, IV drug abuse, schizophrenia, hep c s/p tx who presented for right hand cellulitis with abscess #Right hand and right forearm cellulitis with abscess - Admitted previously on 12/20/19 with drainage of right hand abscess. Did not follow up with surgeon. - MRI: large abscess continuous with tendon sheaths, no evidence of osteo - Vanc and Zosyn (since 02/16) - Wound Culture pending- growing back Streptococcus angiosus - Dr. Aguillon, ortho, consulted, s/p I&D on 02/18/2020 - BCx pending - morphine and gabapentin for pain # Uncontrolled DM1 - States does not take insulin regularly at home. Home regime is supposed to be Levemir 60u QAm and 40u QPM - On lantus 40U BID now with persistent elevated blood sugars, will increase to 50u BID - Hyperglycemia protocol, Accuchecks - A1C 12 #Hx methamphetamine use - Last used prior to admission. - HIV, RPR negative. Hep C ab positive, RNA pending -Counselled about abstinence #Anxiety, Depression, PTSD, Schizophrenia - Not currently taking medication, but given list of meds he was told to be taking - Cont Zoloft and Abilify #Seizures - Not on medication - Monitor #Nicotine dependence - Smokes 1/2 ppd - Nicotine patch #Hep C s/p treatment -Aware PCP: CC Code: FULL DVT ppx: SCDs Diet: CC 1800 cresencio IVF: LR @ 90cc/hr
[2020-02-19] MEDS: Gabapentin 100 MG CAP PO SCH ×3 (08:41→20:48)
[2020-02-19] MEDS: Aripiprazole 2 MG TAB PO SCH (08:41)
[2020-02-19 08:51] LABS: #Lymphocytes 1.3 thou/uL (1.20-3.40); #Monocytes 0.7 thou/uL (0.11-0.59); #Neutrophils 7.2 thou/uL (1.40-6.50); %Basophils 0.2 % (0.0-1.0); %Eosinophils 0.4 % (0.0-10.0); %Lymphocytes 14.3 % (21.0-51.0); %Neutrophils 77.1 % (42.0-75.0); Hemoglobin 13.7 g/dL (14.0-18.0); Mean Corpuscular HGB CONC 34.7 g/dL (32.0-36.0); Mean Corpuscular Volume 83.4 fL (78.0-98.0); Mean Platelet Volume 6.3 fL (7.4-10.4); Platelet Count 283 thou/uL (130-400); RBC Distribution Width 12.1 % (11.5-14.5); Red Blood Cell (RBC) Count 4.72 mill/uL (4.70-6.10); White Blood Cell (WBC) Count 9.3 thou/uL (4.8-10.8)
[2020-02-19] MEDS ORDERED: Insulin Glargine 50 UNITS in Pre-Filled Syringe 1 EACH SC SCH ×2 (09:00→21:00)
[2020-02-19 10:13] LABS: Hep C PCR-Quant HCV Not Detected IU/mL (.)
[2020-02-19 20:26] LABS: Vancomycin, Trough 15.2 ug/mL
[2020-02-19] MEDS: Prazosin HCl 1 MG CAP PO SCH (21:15)
[2020-02-20] MEDS: Nicotine 14 MG PATCH TD SCH (02:07)
[2020-02-20] MEDS: Piperacillin/Tazobactam 3.375 GM in Sodium Chloride 0.9% 100 ML IVPB SCH ×4 (03:50→22:20)
[2020-02-20] MEDS: Vancomycin 1 GM in Premix Bag 1 BAG IVPB SCH ×3 (03:50→20:52)
[2020-02-20] MEDS: Morphine 2 MG/ML VIAL SLOW IVP PRN ×5 (05:48→22:06)
[2020-02-20 08:30] LABS: #Basophils 0.1 thou/uL (0.0-0.2); #Lymphocytes 1.6 thou/uL (1.20-3.40); #Monocytes 0.7 thou/uL (0.11-0.59); #Neutrophils 4.6 thou/uL (1.40-6.50); %Basophils 0.8 % (0.0-1.0); %Eosinophils 0.5 % (0.0-10.0); %Lymphocytes 22.4 % (21.0-51.0); %Monocytes 9.9 % (0.0-10.0); %Neutrophils 66.4 % (42.0-75.0); Hemoglobin 13.5 g/dL (14.0-18.0); Mean Corpuscular HGB CONC 34.1 g/dL (32.0-36.0); Mean Corpuscular Hemoglobin 28.9 pg (27.0-31.0); Mean Corpuscular Volume 84.9 fL (78.0-98.0); Platelet Count 286 thou/uL (130-400); RBC Distribution Width 12.1 % (11.5-14.5); Red Blood Cell (RBC) Count 4.67 mill/uL (4.70-6.10); White Blood Cell (WBC) Count 6.9 thou/uL (4.8-10.8)
--- NOTE | 2020-02-20 08:42 | PDOC.HOSPP ---
- Subjective Encounter Date: 02/20/20 Encounter Time: 10:30 Subjective: Patient reports pain from right arm, helped a bit with pain medications. - Objective Vital Signs & Weight: Vital Signs (12 hours) Temp Pulse Resp BP Pulse Ox 02/20/20 04:00 98.6 F 78 16 139/94 H 99 02/20/20 00:00 97.8 F 80 16 136/88 98 Weight Admit Weight 119 lb Weight 119 lb I&O: 02/19/20 02/20/20 02/21/20 06:59 06:59 06:59 Intake Total 3920 2960 Output Total 3400 3000 Balance 520 -40 Result Diagrams: 02/20/20 08:18 02/18/20 06:30 Additional Labs: Accuchecks 02/20/20 02/19/20 02/19/20 05:02 20:24 16:04 POC Glucose 229 H 203 H 345 H 02/19/20 11:38 POC Glucose 195 H Hospitalist ROS - Review of Systems Constitutional: denies: fever, chills Respiratory: denies: cough, shortness of breath Cardiovascular: denies: chest pain, palpitations Gastrointestinal: denies: nausea, vomiting, abdominal pain - Medication Medications: Active Medications Generic Name Dose Route Start Last Admin Trade Name Freq PRN Reason Stop Dose Admin Aripiprazole 2 mg 02/17/20 09:00 02/19/20 08:41 Aripiprazole 2 Mg Tab PO 2 mg DAILY PAULINO Administration Gabapentin 100 mg 02/17/20 09:00 02/19/20 20:48 Gabapentin 100 Mg Cap PO 100 mg TID PAULINO Administration Piperacillin Sod/Tazobactam 100 mls @ 200 mls/hr 02/17/20 04:00 02/20/20 03:50 Sod 3.375 gm/ Sodium Chloride IVPB 100 mls 0400,1000,1600,2200 PAULINO Administration Lactated Ringer's 1,000 mls @ 90 mls/hr 02/17/20 03:45 02/19/20 21:16 Lactated Ringer's IV Not Given .Q11H7M PAULINO Vancomycin HCl 1 gm/ Device 200 mls @ 200 mls/hr 02/18/20 21:00 02/20/20 03:50 IVPB 200 mls 0500,1300,2100 PAULINO Administration Insulin Human Lispro 0 units 02/17/20 02:24 02/19/20 17:42 Humalog 300 Units/3 Ml Vial SC 8 unit .MODERATE SLIDING SC PRN Administration Moderate Correctional Scale Insulin Human Lispro 0 units 02/17/20 21:11 02/19/20 00:24 Humalog 300 Units/3 Ml Vial SC 5 unit .BEDTIME SLIDING SC PRN Administration Bedtime Correctional Scale Morphine Sulfate 2 mg 02/17/20 09:48 02/20/20 05:48 Morphine 2 Mg/Ml Vial SLOW IVP 2 mg Q4H PRN Administration Moderate to Severe Pain (6-10) Nicotine 14 mg 02/17/20 02:00 02/20/20 02:07 Nicotine 14 Mg Patch TD 14 mg Q24HR PAULINO Administration Prazosin HCl 1 mg 02/19/20 21:00 02/19/20 21:15 Prazosin Hcl 1 Mg Cap PO Not Given HS PAULINO Sertraline HCl 50 mg 02/17/20 09:00 02/19/20 08:41 Sertraline Hcl 25 Mg Tab PO 50 mg DAILY PAULINO Administration - Exam General Appearance: NAD, awake alert ENT: moist mucosa Heart: RRR Respiratory: no wheezes, normal chest expansion, no tachypnea Gastrointestinal: soft, non-distended Extremities - other findings: RUE with dressing in place C/D/I Neurological: no focal deficits Musculoskeletal: normal tone, normal strength, no muscle wasting Psychiatric: normal affect, normal behavior, A&O x 3 Hosp A/P - Plan 39yo M with h/o DM Type 1, IV drug abuse, schizophrenia, hep c s/p tx who presented for right hand cellulitis with abscess #Right hand and right forearm cellulitis with abscess - Admitted previously on 12/20/19 with drainage of right hand abscess. Did not follow up with surgeon. - MRI: large abscess continuous with tendon sheaths, no evidence of osteo - Vanc and Zosyn (since 02/16) - Wound Culture pending- growing back Alpha-hemolytic streptococcus - Dr. Aguillon, ortho, consulted, s/p I&D on 02/18/2020 - BCx pending - morphine and gabapentin for pain # Uncontrolled DM1 - States does not take insulin regularly at home. Home regime is supposed to be Levemir 60u QAm and 40u QPM - On lantus 40U BID now with persistent elevated blood sugars, will increase to 50u BID - Hyperglycemia protocol, Accuchecks - A1C 12 #Hx methamphetamine use - Last used prior to admission. - HIV, RPR negative. Hep C ab positive, RNA pending -Counselled about abstinence #Anxiety, Depression, PTSD, Schizophrenia - Not currently taking medication, but given list of meds he was told to be taking - Cont Zoloft and Abilify #Seizures - Not on medication - Monitor #Nicotine dependence - Smokes 1/2 ppd - Nicotine patch #Hep C s/p treatment -Aware PCP: CC Code: FULL DVT ppx: SCDs Diet: CC 1800 cresencio IVF: LR @ 90cc/hr- good oral intake so will stop IV fluids
[2020-02-20] MEDS ORDERED: Insulin Glargine 55 UNITS in Pre-Filled Syringe 1 EACH SC SCH ×2 (09:00→21:00)
[2020-02-20] MEDS: DULoxetine 30 MG CAP PO SCH ×2 (09:28→20:50)
[2020-02-20] MEDS: Aripiprazole 2 MG TAB PO SCH (09:30)
[2020-02-20] MEDS: Gabapentin 400 MG CAP PO SCH ×3 (09:31→20:50)
[2020-02-20] MEDS: HumaLOG 300 UNITS/3 ML VIAL SC PRN ×2 (12:19→17:26)
[2020-02-20] MEDS: Prazosin HCl 1 MG CAP PO SCH (20:51)
[2020-02-21] MEDS: Nicotine 14 MG PATCH TD SCH (01:32)
[2020-02-21] MEDS: Piperacillin/Tazobactam 3.375 GM in Sodium Chloride 0.9% 100 ML IVPB SCH ×4 (03:43→23:36)
[2020-02-21] MEDS: Morphine 2 MG/ML VIAL SLOW IVP PRN ×5 (03:44→20:41)
[2020-02-21] MEDS: Vancomycin 1 GM in Premix Bag 1 BAG IVPB SCH ×3 (04:22→20:42)
[2020-02-21] MEDS: HumaLOG 300 UNITS/3 ML VIAL SC PRN ×4 (05:47→22:43)
[2020-02-21 06:32] LABS: #Eosinphils 0.1 thou/uL (0.0-0.7); #Lymphocytes 1.3 thou/uL (1.20-3.40); #Monocytes 0.5 thou/uL (0.11-0.59); #Neutrophils 2.9 thou/uL (1.40-6.50); %Basophils 0.2 % (0.0-1.0); %Eosinophils 1.7 % (0.0-10.0); %Lymphocytes 27.4 % (21.0-51.0); %Monocytes 10.5 % (0.0-10.0); %Neutrophils 60.2 % (42.0-75.0); Hemoglobin 13.4 g/dL (14.0-18.0); Mean Corpuscular HGB CONC 33.6 g/dL (32.0-36.0); Mean Corpuscular Hemoglobin 28.3 pg (27.0-31.0); Mean Corpuscular Volume 84.1 fL (78.0-98.0); Mean Platelet Volume 6.1 fL (7.4-10.4); Platelet Count 283 thou/uL (130-400); RBC Distribution Width 11.9 % (11.5-14.5); Red Blood Cell (RBC) Count 4.73 mill/uL (4.70-6.10); White Blood Cell (WBC) Count 4.7 thou/uL (4.8-10.8)
[2020-02-21 06:55] LABS: Anion Gap 11 mmol/L (10-20); BUN (Urea Nitrogen) 17 mg/dL (8.9-20.6); Calc. Creatinine Clearance 74 mL/min (70-130); Calcium 8.8 mg/dL (7.8-10.44); Carbon Dioxide 31 mmol/L (22-29); Chloride 90 mmol/L (98-107); Glucose 372 mg/dL (70-105); Potassium 4.3 mmol/L (3.5-5.1); Sodium 128 mmol/L (136-145)
--- NOTE | 2020-02-21 07:50 | PDOC.HOSPP ---
- Subjective Encounter Date: 02/21/20 Encounter Time: 10:00 Subjective: Patient with improvement in pain and able to move fingers some. - Objective Vital Signs & Weight: Vital Signs (12 hours) Temp Pulse Resp BP Pulse Ox 02/20/20 20:15 98.7 F 81 16 133/85 98 Weight Admit Weight 119 lb Weight 119 lb I&O: 02/20/20 02/21/20 02/22/20 06:59 06:59 06:59 Intake Total 2960 4680 Output Total 3000 3575 Balance -40 1105 Result Diagrams: 02/21/20 05:51 02/21/20 05:51 Additional Labs: Accuchecks 02/21/20 02/20/20 02/20/20 05:40 20:15 17:11 POC Glucose 334 H 284 H 348 H 02/20/20 11:55 POC Glucose 322 H Hospitalist ROS - Review of Systems Constitutional: denies: fever, chills Respiratory: denies: cough, shortness of breath Cardiovascular: denies: chest pain, palpitations Gastrointestinal: denies: nausea, vomiting, abdominal pain Musculoskeletal: reports: arm pain - Medication Medications: Active Medications Generic Name Dose Route Start Last Admin Trade Name Freq PRN Reason Stop Dose Admin Aripiprazole 2 mg 02/17/20 09:00 02/20/20 09:30 Aripiprazole 2 Mg Tab PO 2 mg DAILY PAULINO Administration Duloxetine HCl 30 mg 02/20/20 09:00 02/20/20 20:50 Duloxetine 30 Mg Cap PO 30 mg BID PAULINO Administration Gabapentin 800 mg 02/20/20 09:00 02/20/20 20:50 Gabapentin 400 Mg Cap PO 800 mg TID PAULINO Administration Piperacillin Sod/Tazobactam 100 mls @ 200 mls/hr 02/17/20 04:00 02/21/20 03:43 Sod 3.375 gm/ Sodium Chloride IVPB 100 mls 0400,1000,1600,2200 PAULINO Administration Vancomycin HCl 1 gm/ Device 200 mls @ 200 mls/hr 02/18/20 21:00 02/21/20 04:22 IVPB 200 mls 0500,1300,2100 PAULINO Administration Insulin Human Lispro 0 units 02/17/20 02:24 02/21/20 05:47 Humalog 300 Units/3 Ml Vial SC 8 unit .MODERATE SLIDING SC PRN Administration Moderate Correctional Scale Insulin Human Lispro 0 units 02/17/20 21:11 02/19/20 00:24 Humalog 300 Units/3 Ml Vial SC 5 unit .BEDTIME SLIDING SC PRN Administration Bedtime Correctional Scale Morphine Sulfate 2 mg 02/17/20 09:48 02/21/20 03:44 Morphine 2 Mg/Ml Vial SLOW IVP 2 mg Q4H PRN Administration Moderate to Severe Pain (6-10) Nicotine 14 mg 02/17/20 02:00 02/21/20 01:32 Nicotine 14 Mg Patch TD 14 mg Q24HR PAULINO Administration Prazosin HCl 1 mg 02/19/20 21:00 02/20/20 20:51 Prazosin Hcl 1 Mg Cap PO 1 mg HS PAULINO Administration Sertraline HCl 50 mg 02/17/20 09:00 02/20/20 09:28 Sertraline Hcl 25 Mg Tab PO 50 mg DAILY PAULINO Administration - Exam General Appearance: NAD, awake alert ENT: moist mucosa Heart: RRR, no murmur, no gallops, no rubs Respiratory: CTAB, no wheezes, no rales, no ronchi Gastrointestinal: soft, non-tender, non-distended, normal bowel sounds Extremities - other findings: left forearm with bandage in place, moving fingers well, + cap refill/sensa Neurological: normal sensation to touch Psychiatric: normal affect, normal behavior, A&O x 3 Hosp A/P - Plan 39yo M with h/o DM Type 1, IV drug abuse, schizophrenia, hep c s/p tx who presented for right hand cellulitis with abscess #Right hand and right forearm cellulitis with abscess - Admitted previously on 12/20/19 with drainage of right hand abscess. Did not follow up with surgeon. - MRI: large abscess continuous with tendon sheaths, no evidence of osteo - Vanc and Zosyn (since 02/16) - Wound Culture pending- growing back Alpha-hemolytic streptococcus - Dr. Aguillon, ortho, consulted, s/p I&D on 02/18/2020 - BCx pending - morphine and gabapentin for pain # Uncontrolled DM1 - States does not take insulin regularly at home. Home regime is supposed to be Levemir 60u QAm and 40u QPM - On lantus 40U BID now with persistent elevated blood sugars, will increase to 55u BID - Hyperglycemia protocol, Accuchecks - A1C 12 #Hx methamphetamine use - Last used prior to admission. - HIV, RPR negative. Hep C ab positive, RNA pending -Counselled about abstinence #Anxiety, Depression, PTSD, Schizophrenia - Not currently taking medication, but given list of meds he was told to be taking - Cont Zoloft and Abilify #Seizures - Not on medication - Monitor #Nicotine dependence - Smokes 1/2 ppd - Nicotine patch #Hep C s/p treatment -Aware #Hyponatremia -Patient drinking lots of fluids, may need to restrict if worsens PCP: CC Code: FULL DVT ppx: SCDs Diet: CC 1800 cresencio IVF: saline lock
[2020-02-21] MEDS: Aripiprazole 2 MG TAB PO SCH (08:39)
[2020-02-21] MEDS: Gabapentin 400 MG CAP PO SCH ×3 (08:39→20:40)
[2020-02-21] MEDS: DULoxetine 30 MG CAP PO SCH ×2 (08:39→20:40)
[2020-02-21] MEDS: Insulin Glargine 60 UNITS in Pre-Filled Syringe 1 EACH SC SCH (09:27)
[2020-02-21] MEDS ORDERED: Insulin Glargine 60 UNITS in Pre-Filled Syringe 1 EACH SC SCH (21:00)
[2020-02-21] MEDS: Prazosin HCl 1 MG CAP PO SCH (22:41)
[2020-02-21] MEDS ORDERED: Piperacillin/Tazobactam 3.375 GM in Sodium Chloride 0.9% 100 ML IVPB SCH (22:45)
[2020-02-22] MEDS: Morphine 2 MG/ML VIAL SLOW IVP PRN ×3 (01:06→10:40)
[2020-02-22] MEDS: Piperacillin/Tazobactam 3.375 GM in Sodium Chloride 0.9% 100 ML IVPB SCH ×2 (04:42→09:33)
[2020-02-22 05:19] LABS: #Eosinphils 0.1 thou/uL (0.0-0.7); #Lymphocytes 1.5 thou/uL (1.20-3.40); #Monocytes 0.6 thou/uL (0.11-0.59); #Neutrophils 3.4 thou/uL (1.40-6.50); %Basophils 0.7 % (0.0-1.0); %Eosinophils 2.1 % (0.0-10.0); %Lymphocytes 25.9 % (21.0-51.0); %Monocytes 10.7 % (0.0-10.0); %Neutrophils 60.7 % (42.0-75.0); Hemoglobin 13.1 g/dL (14.0-18.0); Mean Corpuscular HGB CONC 34.1 g/dL (32.0-36.0); Mean Corpuscular Hemoglobin 28.5 pg (27.0-31.0); Mean Corpuscular Volume 83.5 fL (78.0-98.0); Mean Platelet Volume 5.8 fL (7.4-10.4); Platelet Count 309 thou/uL (130-400); RBC Distribution Width 11.7 % (11.5-14.5); Red Blood Cell (RBC) Count 4.59 mill/uL (4.70-6.10); White Blood Cell (WBC) Count 5.6 thou/uL (4.8-10.8)
[2020-02-22 05:40] LABS: Vancomycin, Trough 20.1 ug/mL
[2020-02-22] MEDS: Vancomycin 1 GM in Premix Bag 1 BAG IVPB SCH (06:23)
[2020-02-22] MEDS: Nicotine 14 MG PATCH TD SCH (06:26)
[2020-02-22] MEDS: Gabapentin 400 MG CAP PO SCH (09:31)
[2020-02-22] MEDS: Aripiprazole 2 MG TAB PO SCH (09:31)
[2020-02-22] MEDS: DULoxetine 30 MG CAP PO SCH (09:32)
[2020-02-22] MEDS: Insulin Glargine 60 UNITS in Pre-Filled Syringe 1 EACH SC SCH (09:36)
--- NOTE | 2020-02-22 10:17 | PDOC.DS.DS ---
Provider - Provider Date of Admission: 02/17/20 00:52 Date of Discharge: 02/22/20 Admitting Provider: Stephany Rossi MD Consultations: Orthopedics (Dr. Aguillon) Primary Care Physician: [facility] Course - Hospital Course Hospital Course: Discharge diagnosis: 1. Right hand and right forearm cellulitis with abscess 2. Nicotine dependence 3. History of methamphetamine use 4. Hepatitis C virus antibody positive, RNA test negative 4. HIV 1 and 2 antigen and antibody nonreactive 5. Syphilis IgG/IgM antibody nonreactive 6. Hepatitis a and hepatitis B antibody is nonreactive 7. Urine drug screen positive for opiates, amphetamines, methamphetamines and cannabinoids 8. Hyponatremia Hospital course: Patient is a pleasant 39-year-old gentleman who was admitted to the hospital on February 17, 2020 for right forearm and hand cellulitis with abscess. MRI of the upper extremity done at the time of admission showed large abscess involving the dorsal aspect of the hand contiguous with the tendon sheaths of the extensor tendons of the index finger as well as the extensor digitorum communis tendon sh eath at the wrist. There was no evidence to suggest right hand osteomyelitis. He was seen by orthopedic surgery service. On February 17 he underwent irrigation and debridement of right dorsal hand abscess and right lateral elbow abscess. Hand abscess cultures grew Streptococcus mitis/paralysis and Streptococcus intermedius. Both organisms were resistant to erythromycin but was otherwise pansensitive. He is being discharged home on 2 weeks of Augmentin. Many thanks for allowing me to participate in your patient's care. Please feel free to contact me with any questions or concerns. Discharge destination: Home Total amount of time spent coordinating this discharge: 33 minutes Resuscitation Status: 02/17/20 01:50 Resuscitation Status Routine Co-Sign Provider: Resuscitation Status: FULL: Full Resuscitation Discussed with: Patient - Labs Lab Results: 02/22/20 05:04 02/21/20 05:51 Abnormal Lab Results - Last 48 hrs 02/21/20 05:51: WBC 4.7 L, Hgb 13.4 L, Hct 39.8 L, MPV 6.1 L, Monocytes % 10.5 H 02/21/20 05:51: Sodium 128 L, Chloride 90 L, Carbon Dioxide 31 H 02/22/20 05:04: RBC 4.59 L, Hgb 13.1 L, Hct 38.4 L, MPV 5.8 L, Monocytes % 10.7 H, Monocytes # 0.6 H Microbiology - Entire Visit 02/18/20 13:00 Hand - Right Bacterial Culture - Preliminary Alpha-Hemolytic Streptococcus Alpha-Hemolytic Streptococcus#2 02/18/20 13:00 Hand - Right Anaerobic Culture - Preliminary 02/18/20 13:10 Elbow - Right Bacterial Culture - Preliminary 02/18/20 13:10 Elbow - Right Anaerobic Culture - Preliminary NO ANAEROBES ISOLATED IN 4 DAYS 02/17/20 09:25 Hand - Abscess Bacterial Culture - Final Streptococcus mitis\oralis Streptococcus intermedius - Physical Exam Vitals: Vital Signs (12 hours) Temp Pulse Resp BP Pulse Ox 02/22/20 08:00 97 02/22/20 07:00 98.3 F 84 14 127/79 97 Weight Admit Weight 119 lb Weight 119 lb Physical Exam: The patient was seen and examined on the day of discharge. Patient denies chest pain or shortness of breath. Vital signs are stable. S1 and S2 are heard. Lungs are clear to auscultation bilaterally. Plan - Discharge Medications Prescriptions: Amoxicillin/Potassium Clav [Augmentin 875-125 Tablet] 1 each PO BID #28 tablet Home Medications: Medication Instructions Recorded Confirmed Type Aripiprazole [Abilify] 2 mg PO DAILY 12/19/19 02/17/20 History DULoxetine [Cymbalta] 30 mg PO BID 12/19/19 02/17/20 History Gabapentin [Neurontin] 800 mg PO TID 12/19/19 02/17/20 History Ibuprofen/Diphenhydramine HCl 1 capsule PO HS 12/19/19 02/17/20 History [Ibuprofen PM Softgel] Insulin Detemir [Levemir] 40 unit SQ HS 12/19/19 02/17/20 History Naltrexone HCl 50 mg PO DAILY 12/19/19 02/17/20 History Naltrexone Microspheres [Vivitrol] 380 mg IM Q28D 12/19/19 02/17/20 History Prazosin HCl 1 mg PO HS 12/19/19 02/17/20 History Sertraline HCl [Zoloft] 50 mg PO DAILY 12/19/19 02/17/20 History hydrOXYzine Pamoate [Vistaril] 50 mg PO TID PRN 12/19/19 02/17/20 History traZODone HCl [Trazodone HCl] 50 mg PO HS 12/19/19 02/17/20 History Insulin Detemir [Levemir] 60 unit SQ QAM 02/17/20 02/17/20 History Amoxicillin/Potassium Clav 1 each PO BID #28 tablet 02/22/20 Rx [Augmentin 875-125 Tablet] Nicotine [Nicoderm CQ] 14 mg TD Q24HR patch 02/22/20 Rx Allergies: Iodinated Contrast Media [Iodinated Contrast Media - Oral and] Allergy (Verified 05/10/19 09:58) per pt shellfish derived Allergy (Verified 05/10/19 09:58) - Discharge Instructions Activity:: Activity as Tolerated Nourishment:: Diabetic Diet - Follow up Plan Referrals: [facility] [Primary Care Provider] - 3 Days Mamadou Aguillon MD [Active] - 14 Days Disposition: HOME Quality - Care Measures CORE MEASURES:: N/A
[2020-02-22] MEDS ORDERED: Amoxicillin/Potassium Clav 875 MG TAB PO SCH ×2 (10:30→21:00)
[2020-02-22 12:38] VITALS: BP 125/84; TEMP 97.5
--- NOTE | 2020-02-24 22:23 | PQF ---
CLINICAL DOCUMENTATION CLARIFICATION FORM: Dear : Casey Aguillon Date / Time: 02/24/204 Please exercise your independent, professional judgment in responding to the clarification form. Clinical indicators are provided on the bottom of this form for your review In your clinical opinion based on your clinical findings belowm can you please specify the and type of debridement of the following site: Please check appropriate box(es): Hand Abscess [ ] Excisional Debridement: Depth / layer: (deepest layer of debridement): [ ] Skin [ ] Subcutaneous [ ] Fascia [ ] Muscle [ ] Tendon [ ] Bone [ ] Non-excisional Debridement: (Removal by ?ushing, brushing, chemical, or washing) Depth / layer: (deepest layer of debridement): [ ] Skin [ ] Subcutaneous [ ] Fascia [ ] Muscle [ ] Tendon [ ] Bone Forearm Abscess [ ] Excisional Debridement: Depth / layer: (deepest layer of debridement): [ ] Skin [ ] Subcutaneous [ ] Fascia [ ] Muscle [ ] Tendon [ ] Bone [ ] Non-excisional Debridement: (Removal by ?ushing, brushing, chemical, or washing) Depth / layer: (deepest layer of debridement): [ ] Skin [ ] Subcutaneous [ ] Fascia [ ] Muscle [ ] Tendon [ ] Bone [ ] Other procedure diagnosis [ ] Unable to determine Physician Signature: Date/Time: For continuity of documentation, please document condition throughout progress notes and discharge summary. Thank You. To be completed by CDI/Coding staff for physician review: Present Clinical Indicators - Signs / Symptoms / Labs Results and Location in Medical Record [X] Presents to ED with complaints of Right hand edema and erythema x 4days H&P p1 02/16 Dr Antoine [X] Erythema, janice and abscess measuring -1x1 cm with purulent drainage to dorsal aspect of right hand. Open sore to the right hand. Puncture lee present along forearms bilaterally H&P p3 02/16 Dr Antoine [X] We evacuated any purulent material and thoroughly irrigated with copious lavage. We scarped wound edges with a curette. We were down to the tendon level. The tendon had some purulent material Operative report Dr Aguillon 02/17 [X] An incision was made over his lateral forarm. We dissected down through the subcutaneous tissue to an abscess of the lateral forearm. This was irrigated. We cultured this wound as well. Next we curetted and scraped the wound edgesh Operative report Dr Aguillon 02/17 Present Risk Factors Results and Location in Medical Record [X] DM type 1 H&P p1 02/16 Dr Antoine [X] Marijuana Abuse H&P p1 02/16 Dr Antoine [X] Methamphetamine abuse H&P p1 02/16 Dr Antoine [X] Neuropathy H&P p1 02/16 Dr Antoine [X] Cellulitis with abscess, right hand in an uncontrolled T1DMh H&P p5 02/16 Dr Antoine Present Treatments Results and Location in Medical Record [X] Irrigation and Debridement Operative report Dr Aguillon 02/17 [X] IV Vancomycin 1 gm MAY 02 [X] IV Zosyn 3.375 gm MAY 02 [X] Insulin Glargine 20 units MAY 02 CDS/Block Hand Signature: Sharmin Villegas Phone #: [phone] Date/Time: 02/24/202221 This is a permanent part of the Medical Record [facility]
--- NOTE | 2020-02-24 22:24 | PQF ---
CLINICAL DOCUMENTATION CLARIFICATION FORM: Dear : Tye Becerra Date / Time: 02/24/20 2302 Please exercise your independent, professional judgment in responding to the clarification form. Clinical indicators are provided on the bottom of this form for your review Can you please further clarify the nutritional status of the patient? Please check appropriate box(es): [ x ] Protein Calorie Malnutrition: [ ] Mild [ x ] Moderate [ ] Severe [ ] Other Malnutrition (please specify) [ ] Underweight without malnutrition [ ] Cachexia [ ] Other diagnosis [ ] Unable to determine In addition, please specify: Present on Admission (POA): [ x ] Yes [ ] No [ ] Unable to determine Physician Signature: Date/Time: For continuity of documentation, please document condition throughout progress notes and discharge summary. Thank You. To be completed by CDI/Coding staff for physician review: Present Clinical Indicators - Signs / Symptoms / Labs Results and Location in Medical Record [X] BP 133/89, Pulse 84, Resp 16, Temp 97.7 Vital signs 02/16 Serum Total Protein 7.1, Albumin 3.4, Globolin 3.7, Ratio 0.9 Laboratory 02/16 [X] BMI of 18.6 Nutritional assessment Dietitian [facility] 02/17 [X] Moderate to severe muscle wasting, estimated intake, suggestive of severemalnutrition in the context of chronic illness Nutritional assessment Dietitian [facility] 02/19 [X] Decreased appetite Nutritional assessment Dietitian [facility] 02/17 [X] Weight loss Nutritional assessment Dietitian [facility] 02/07 Present Risk Factors Results and Location in Medical Record [X] DM type 1 H&P p1 02/16 Dr Antoine [X] Marijuana Abuse H&P p1 02/16 Dr Antoine [X] Methamphetamine abuse H&P p1 02/16 Dr Antoine Present Treatments Results and Location in Medical Record [X] Dietary consult Nutritional assessment Dietitian [facility] 02/17 [X] Nutritional supplements Nutritional assessment Dietitian [facility] 02/17 [X] Weight monitoring Nutritional assessment Dietitian [facility] 02/17 [X] Oral intake monitoring Nutritional assessment Dietitian [facility] 02/17 [X] Appetite stimulant - medication Nutritional assessment Dietitian [facility] 02/17 CDS/Medical Dermatologist Signature: Sharmin Villegas Phone #: [phone] Date/Time: 02/24/202222 Moderate Malnutrition (in acute illness) ? Energy Intake: <75% of estimated energy requirement for > 7 days ? Weight Loss: 1-2%/1 week; 5%/ 1 month; 7.5%/3 months ? Other: mild body fat loss; mild muscle mass loss; mild fluid accumulation; Severe Malnutrition (in acute illness) ? Energy Intake: ? 50% of estimated energy requirement for ? 5 days ? Weight Loss: >2%/1 week; >5%/1 month; >7.5%/3 months ? Other: moderate body fat loss; moderate muscle mass loss; moderate- severe fluid accumulation; measurably reduced data typist strength Moderate Malnutrition (in chronic illness) ? Energy Intake: <75% of estimated energy requirement for ?1 month ? Weight Loss: 5%/1 month; 7.5%/3 months; 10%/6 months; 20%/1 year ? Other: mild body fat loss; mild muscle mass loss; mild fluid accumulation Severe Malnutrition (in chronic illness) ? Energy Intake: ?75% of estimated energy requirement for ?1 month ? Weight Loss: >5%/1 month; >7.5%/3 months; >10%/6 months; >20%/1 year ? Other: severe body fat loss; severe muscle mass loss; severe fluid accumulation; measurably reduced data typist strength This is a permanent part of the Medical Record [facility]
--- NOTE | 2020-02-24 22:25 | PQF ---
CLINICAL DOCUMENTATION CLARIFICATION FORM: Dear : Tye Becerra Date / Time: 02/24/202223 Please exercise your independent, professional judgment in responding to the clarification form. Clinical indicators are provided on the bottom of this form for your review In your clinical opinion based on clinical findings below can you please identify the etiology of Cellulitis if due to: Please check appropriate box(s): [ ] Neuropathy [ x ] Diabetes [ ] Other diagnosis [ ] Unable to determine Physician Signature: Date/Time: For continuity of documentation, please document condition throughout progress notes and discharge summary. Thank You. To be completed by CDI/Coding staff for physician review: Present Clinical Indicators - Signs / Symptoms / Labs Results and Location in Medical Record [X] BP 133/89, Pulse 84, Resp 16, Temp 97.7 Vital signs 02/16 [X] Presents to ED with complaints of Right hand edema and erythema x 4days H&P p1 02/16 Dr Antoine [X] Erythema, janice and abscess measuring -1x1 cm with purulent drainage to dorsal aspect of right hand. Open sore to the right hand. Puncture makrs present along forearms bilaterally H&P p3 02/16 Dr Antoine [X] right hand abscess H&P p3 02/16 Dr Antoine [X] Cellulitis with abscess, right hand in an uncontrolled T1DMh H&P p5 02/16 Dr Antoine Present Risk Factors Results and Location in Medical Record [X] DM type 1 H&P p1 02/16 Dr Antoine [X] Marijuana Abuse H&P p1 02/16 Dr Antoine [X] Methamphetamine abuse H&P p1 02/16 Dr Antoine [X] Neuropathy H&P p1 02/16 Dr Antoine Present Treatments Results and Location in Medical Record [X] Irrigation and Debridement Operative report Dr Aguillon 02/17 [X] IV Vancomycin 1 gm MAY 02 [X] IV Zosyn 3.375 gm MAY 02 [X] Insulin Glargine 20 units MAY 02 CDS/Customer Account Manager Signature: Sharmin Villegas Phone #: [phone] Date/Time: 02/24/202223 This is a permanent part of the Medical Record [facility]
== END 2020-02-22 14:09 | disposition home or self-care (01) | DRG 580 ==
LOC: ERS 23:47 → T4-B 02-17 00:52
PROVIDERS: ADMIT Family Medicine; ATTEND Emergency Medicine
PROC: 0J9G0ZZ Drainage of Right Lower Arm Subcutaneous Tissue and Fascia, Open Approach (ICD-10-PCS; principal; 2020-02-17)
PROC: 0L970ZZ Drainage of Right Hand Tendon, Open Approach (ICD-10-PCS; 2020-02-17)
PROC: 0LD70ZZ Extraction of Right Hand Tendon, Open Approach (ICD-10-PCS; 2020-02-17)
PROC: 0JDG0ZZ Extraction of Right Lower Arm Subcutaneous Tissue and Fascia, Open Approach (ICD-10-PCS; 2020-02-17)
DX: L02.511 Cutaneous abscess of right hand (principal); L03.113 Cellulitis of right upper limb; E87.1 Hypo-osmolality and hyponatremia; Z16.29 Resistance to other single specified antibiotic; E44.0 Moderate protein-calorie malnutrition; Z68.1 Body mass index [BMI] 19.9 or less, adult; L02.413 Cutaneous abscess of right upper limb; E10.628 Type 1 diabetes mellitus with other skin complications; F17.210 Nicotine dependence, cigarettes, uncomplicated; B95.4 Other streptococcus as the cause of diseases classified elsewhere; E10.40 Type 1 diabetes mellitus with diabetic neuropathy, unspecified; F41.9 Anxiety disorder, unspecified; F32.9 Major depressive disorder, single episode, unspecified; F43.10 Post-traumatic stress disorder, unspecified; F12.10 Cannabis abuse, uncomplicated; F15.10 Other stimulant abuse, uncomplicated; G40.909 Epilepsy, unspecified, not intractable, without status epilepticus; F20.9 Schizophrenia, unspecified; B19.20 Unspecified viral hepatitis C without hepatic coma; E10.65 Type 1 diabetes mellitus with hyperglycemia; F11.10 Opioid abuse, uncomplicated; Z91.041 Radiographic dye allergy status; Z91.013 Allergy to seafood; Z79.899 Other long term (current) drug therapy; Z79.4 Long term (current) use of insulin; Z91.19 Patient's noncompliance with other medical treatment and regimen
CPT/HCPCS: 36415; 36416; 80048; 80053; 80074; 80202; 80306; 83036; 83605; 85025; 86780; 87070; 87076; 87077; 87186; 87205; 87389; 87522; 96374; A9579; J1100; J1815; J1885; J2250; J2270; J2405; J2543; J2704; J3010; J3370; J3490

== ENCOUNTER 2021-02-23 20:07 | Emergency (ER) | payer SELFPAY ==
[2021-02-23] MEDS ORDERED: Ibuprofen 200 MG TAB ONE (21:42)
[2021-02-23] MEDS ORDERED: Insulin Regular 300 UNITS/3 ML VIAL ONE (21:42)
[2021-02-23 22:29] LABS: Actual Bicarbonate (HCO3v) 22 mEq/L (22-28); Analyzer IN Cardio ER; Base Excess -0.8 mEq/L (-2.0 to +3.0); Calcium, Ionized (venous) 1.04 mmol/L (1.16-1.32); Chloride (VBG) 97 mmol/L (98-106); Hemoglobin (Hb) 17.5 g/dL (13.2-17.3); Potassium (VBG) 3.94 mmol/L (3.70-5.30); Sodium 130.3 mmol/L (133-146); pH (venous) 7.45 (7.32-7.43)
[2021-02-23 22:43] LABS: #Eosinphils 0.1 thou/uL (0.0-0.7); #Lymphocytes 1.3 thou/uL (1.20-3.40); #Monocytes 0.4 thou/uL (0.11-0.59); #Neutrophils 8.8 thou/uL (1.40-6.50); %Basophils 0.4 % (0.0-1.0); %Eosinophils 0.5 % (0.0-10.0); %Lymphocytes 12.2 % (21.0-51.0); %Monocytes 4.1 % (0.0-10.0); %Neutrophils 82.9 % (42.0-75.0); Hemoglobin 16.8 g/dL (14.0-18.0); Mean Corpuscular HGB CONC 35.8 g/dL (32.0-36.0); Mean Corpuscular Hemoglobin 30.9 pg (27.0-31.0); Mean Corpuscular Volume 86.4 fL (78.0-98.0); Mean Platelet Volume 7.5 fL (7.4-10.4); Platelet Count 154 thou/uL (130-400); RBC Distribution Width 12.2 % (11.5-14.5); Red Blood Cell (RBC) Count 5.44 mill/uL (4.70-6.10); White Blood Cell (WBC) Count 10.6 thou/uL (4.8-10.8)
[2021-02-23 23:00] LABS: ALT (SGPT) 15 U/L (8-55); AST (SGOT) 23 U/L (5-34); Albumin 3.7 g/dL (3.5-5.0); Alkaline Phosphatase 153 U/L (40-110); Anion Gap 14 mmol/L (10-20); BUN (Urea Nitrogen) 9 mg/dL (8.9-20.6); Bilirubin, Total 0.5 mg/dL (0.2-1.2); Calc. Creatinine Clearance 0 mL/min (70-130); Calcium 9.1 mg/dL (7.8-10.44); Carbon Dioxide 19 mmol/L (22-29); Chloride 99 mmol/L (98-107); Globulin 3.8 g/dL (2.4-3.5); Glucose 450 mg/dL (70-105); Protein, Total 7.5 g/dL (6.0-8.3); Sodium 128 mmol/L (136-145)
== END 2021-02-23 23:46 ==
LOC: ERS 20:07
DX: S43.102A Unspecified dislocation of left acromioclavicular joint, initial encounter (principal); E10.65 Type 1 diabetes mellitus with hyperglycemia; R56.9 Unspecified convulsions
CPT/HCPCS: 36416; 71045; 80053; 82010; 82805; 85025; J1815